=== PATIENT | male | born 1960 | race Caucasian/White ===

== ENCOUNTER 2018-01-10 08:32 | Inpatient (IN) | payer BC ==
--- NOTE | 2018-01-09 16:15 | Pre-op HX & Phy Repo 2 SIG ---
DATE OF ADMISSION: 01/10/2018 HISTORY OF PRESENT ILLNESS: The patient is a 57-year-old male in overall good health with a malfunctioning Donaldson continent ileostomy with recent episodes of incontinence and difficulty intubating. The patient has a past history of ulcerative colitis and in 1987 underwent proctocolectomy with Iesha ileostomy. The patient then underwent conversion of his malfunctioning conventional ileostomy to a Donaldson continent intestinal reservoir in [place] in 1992. He did very well ever since then, intubating 4 times a day without any problems until several months ago. He developed recurring episodes of incontinence of stool that would squirt out of the stoma as well as difficulty inserting his intubation catheter. He stands up and takes 4 to 5 minutes for the catheter to enter the pouch and the pouch also leaks flatus through the stoma. He is scheduled to undergo endoscopy of his pouch in preparation for surgical revision to correct what is most likely a slipped valve. He does not have any symptoms consistent with pouchitis. He also underwent a revision of his stoma in 1993, a year after the original surgery. PAST MEDICAL HISTORY: MEDICATIONS: Metformin, Lopid, and Protonix. ALLERGIES TO MEDICATIONS: None. OPERATIONS: In addition to the above, he has undergone surgery to correct deviated septum in the past. REVIEW OF SYSTEMS: He has been diagnosed as diabetic in the past 6 months. PHYSICAL EXAMINATION: The patient is 6 foot, 180 pounds. He is arriving from out of town, will be examined upon arrival and dictated separately. IMPRESSION: 1. Malfunctioning Donaldson continent intestinal reservoir with incontinence and difficulty with intubation. 2. History of ulcerative colitis. 3. Diabetes, on oral agents. 4. Status post multiple abdominal operations. 4.1. Proctocolectomy and Iesha ileostomy 1987. 4.2. Donaldson continent intestinal reservoir continent ileostomy 1992 4.3. Revision of Donaldson continent ileostomy stoma 1993. DISCUSSION: I have had a detailed discussion with the patient regarding the nature of his condition, the nature of the endoscopy, which does not require any anesthesia or sedation, and the nature of the surgical revision. I will have another detailed discussion after the findings of the endoscopy have been observed. I have had a discussion regarding the general risks of surgery including bleeding, infection, injury to adjacent structures or organs, adhesions that could lead to bowel obstruction, deep vein thrombosis despite prophylaxis, scarring, etc. I have also had a discussion about the risks of Donaldson continent ileostomy revision including recurrent difficulties with the pouch or with the valve including slipped valve or fistula or others issues. I have also discussed the potential need to relocate the stoma to the left side of the abdomen or another location on the right side. The patient understands and agrees to proceed. Vargas Lund M.D. DR: WALTER JOB#: [id number] CC: CARLOS
[~2018-01-10] VITALS: Ht 182.9 cm; Wt 79.0 kg
[2018-01-10 08:50] VITALS: BP 106/57
[2018-01-10] MEDS ORDERED: Zolpidem 5mg tab ORAL PRN ×2 (10:00→12:15)
[2018-01-10] MEDS ORDERED: Heparin 2000 units/Ns 1000ml INJ PRN (10:30)
[2018-01-10] MEDS ORDERED: Lidocaine 1% Plain 30 ml INJ PRN (10:30)
[2018-01-10 11:02] LABS: BASOPHILS % (AUTO) 0.7 % (0.0-2.0); EOSINOPHILS % (AUTO) 1.1 % (0.0-3.0); HEMATOCRIT 39.1 % (42.0-52.0); HEMOGLOBIN 13.4 G/DL (14.2-18.0); LYMPHOCYTES % (AUTO) 17.4 % (20.0-45.0); MEAN CORPUSCULAR VOLUME 91 FL (80-99); MONOCYTES % (AUTO) 8.8 % (1.0-10.0); NEUTROPHILS % (AUTO) 71.9 % (45.0-75.0); PLATELET COUNT 255 K/UL (150-450); RED CELL DISTRIBUTION WIDTH 11.4 % (11.6-14.8); WHITE BLOOD COUNT 6.1 K/UL (4.8-10.8)
[2018-01-10] MEDS ORDERED: METFORMIN HCL850 M1 ORAL (11:10)
[2018-01-10] MEDS ORDERED: PRILOSEC OTC20 MG ORAL (11:10)
[2018-01-10] MEDS ORDERED: LOPID600 MG ORAL (11:10)
[2018-01-10] MEDS ORDERED: CLARITIN-D 241 EACH PO (11:10)
[2018-01-10 11:13] LABS: ANION GAP 13 mmol/L (5-15); BLOOD UREA NITROGEN 15 mg/dL (7-18); CALCIUM 8.7 MG/DL (8.5-10.1); CARBON DIOXIDE 24 MMOL/L (21-32); CHLORIDE 98 MMOL/L (98-107); CREATININE 1.2 MG/DL (0.55-1.30); POTASSIUM 3.8 MMOL/L (3.5-5.1); SODIUM 135 MMOL/L (136-145)
[2018-01-10 11:22] LABS: ALANINE AMINOTRANSFERASE 33 U/L (12-78); ALBUMIN 3.2 G/DL (3.4-5.0); ALKALINE PHOSPHATASE 75 U/L (46-116); ASPARTATE AMINO TRANSFERASE 30 U/L (15-37); BILIRUBIN,TOTAL 0.4 MG/DL (0.2-1.0)
[2018-01-10 11:31] LABS: APPEARANCE,URINE CLEAR; BILIRUBIN, URINE NEGATIVE (NEGATIVE); COLOR,URINE PALE YELLOW; GLUCOSE, URINE (UA) NEGATIVE (NEGATIVE); KETONES,URINE 4+ (NEGATIVE); LEUKOCYTE ESTERASE ,URINE NEGATIVE (NEGATIVE); NITRITE,URINE NEGATIVE (NEGATIVE); PH,URINE 5 (4.5-8.0); PROTEIN,URINE NEGATIVE (NEGATIVE); UROBILINOGEN,URINE NORMAL MG/DL (0.0-1.0)
--- NOTE | 2018-01-10 11:47 | Pre-Procedure Note/Attestation ---
Pre-Procedure Note/Attestation Complete Prior to Procedure Planned Procedure: not applicable Procedure Narrative: Donaldson continent ileostomy pouch endoscopy Indications for Procedure Pre-Operative Diagnosis: Malfunctioning Donaldson Pouch Attestation I attest that I discussed the nature of the procedure; its benefits; risks and complications; and alternatives (and the risks and benefits of such alternatives ), prior to the procedure, with the patient (or the patient's legal leather goods sales representative). I attest that, if there was a reasonable possibility of needing a blood transfusion, the patient (or the patient's legal leather goods sales representative) was given the [facility] standardized written summary, pursuant to the Moises Slocomb Blood Safety Act ([place] Health and Safety Code # 1645, as amended). I attest that I re-evaluated the patient just prior to the surgery and that there has been no change in the patient's H&P, except as documented below:none Vargas Lund MD Jan 10, 2018 11:47
--- NOTE | 2018-01-10 12:24 | Brief Operative Note ---
Immediate Post Operative Note Operative Note Pre-op Diagnosis: Malfunctioning Donaldson Pouch Procedure: Donaldson pouch endoscopy Post-op Diagnosis: Slipped valve of Donaldson pouch Post-op Diagnosis: same as pre-op Findings: consistent w/pre-op dx studies Surgeon: denise Anesthesia: other - none Specimen: none Complications: none Condition: stable Fluids: none Estimated Blood Loss: none Drains: other - 28 montana to Donaldson pouch Implant(s) used?: No Vargas Lund MD Jan 10, 2018 12:24
[2018-01-10 13:13] VITALS: BP 116/62
[2018-01-10] MEDS: Neomycin Sulfate 500mg Tab ORAL SCH ×3 (13:21→20:45)
--- NOTE | 2018-01-10 13:23 | Pre-Procedure Note/Attestation ---
Pre-Procedure Note/Attestation Complete Prior to Procedure Planned Procedure: not applicable Procedure Narrative: PICC Line Indications for Procedure Pre-Operative Diagnosis: need IV access Attestation I attest that I discussed the nature of the procedure; its benefits; risks and complications; and alternatives (and the risks and benefits of such alternatives ), prior to the procedure, with the patient (or the patient's legal dermatology sales representative). I attest that I re-evaluated the patient just prior to the surgery and that there has been no change in the patient's H&P, except as documented below: Vincent Whaley M.D. Jan 10, 2018 13:23
--- NOTE | 2018-01-10 13:29 | Diagnostic Imaging Report ---
Indications: Needs long-term IV access Technique: Ultrasound confirms patent compressible also vein. Total sterile technique, including sterile probe cover and sterile gel, hat, mask,, sterile gown, large sterile drape, and preparation with 2% chlorhexidine utilized. Local anesthesia with 1% lidocaine. Under real-time ultrasound guidance, puncture the basilic vein using 21-gauge needle, documented and archived, passage 0.018 guidewire under direct fluoroscopy, which was used to determine appropriate catheter length, exchange for 5 Congolese peel-away sheath. 5 Congolese dual-lumen power PICC cut to 40 cm. It was inserted through the peel-away sheath. Peel-away sheath and guidewire removed. Catheter fixed to the skin. Both catheter ports aspirated and flushed. Patient tolerated procedure well, without immediate complication. Digital radiograph documents satisfactory catheter tip position, at the cavoatrial junction. Total fluoroscopy time 0.3 minutes. Total dose area product 15 dGycm2 Impression: Successful placement of 5 Congolese double-lumen PICC under sonographic and fluoroscopic guidance, as described above.
--- NOTE | 2018-01-10 15:23 | General Progress Note ---
Progress Note Progress Note H&P dictated. Endoscopy reveals normal pouch with slipped valve. Hgb 13.4 BUN 15 Cr 1.2 Total protein 6.5 (6.4-8.2) albumin low 3.2 Imp. Malfunctioning Donaldson Continent Intestinal [place] with slipped valve Malnutrition Plan: Surgery in AM May need TPN post-op Full discussion with patient and concerning surgery; all questions answered. Vargas Lund MD Jan 10, 2018 15:23
--- NOTE | 2018-01-10 15:46 | Anethesia Preoperative Eval ---
Anesthesia Pre-op PMH/ROS General Date of Evaluation: Jan 10, 2018 Time of Evaluation: 15:40 Anesthesiologist: Chanelle ASA Score: ASA 3 Mallampati Score Class I : Soft palate, uvula, fauces, pillars visible Class II: Soft palate, uvula, fauces visible Class III: Soft palate, base of uvula visible Class IV: Only hard plate visible Mallampati Classification: Class II Surgeon: Ashely Diagnosis: Malfunctioning Donaldson pouch Surgical Procedure: Ex laparotomy. Revision of continent pouch Anesthesia History: none Family History: no anesthesia problems Allergies: Uncoded Allergies: nkda (Allergy, Unknown, 01/10/18) Medications: see eMAR Past Medical History Cardiovascular: Denies: HTN, CAD, CT, valve dz, arrhythmia, other Pulmonary: Denies: asthma, COPD, TOMEKA, other Gastrointestinal/Genitourinary: Reports: GERD - mild, other - UC s/p total colectomy; Denies: CRI, ESRD Neurologic/Psychiatric: Reports: depression/anxiety; Denies: dementia, CVA, TIA, other Endocrine: Reports: DM - reasonably controlled on pills; Denies: hypothyroidism, steroids, other HEENT: Denies: cataract (L), cataract (R), glaucoma, [place] (L), [place] (R), other Hematology/Immune: Denies: anemia, DVT, bleeding disorder, other Musculoskeletal/Integumentary: Denies: OA, RA, DJD, DDD, edema, other PMH Narrative: as above PSxH Narrative: Multiple intraabdominal surgeries for creation and managing of continent pouch, septoplasty Anesthesia Pre-op Phys. Exam Physician Exam Last Vital Signs Date Time Temp Pulse Resp B/P (MAP) Pulse Ox O2 Delivery O2 Flow Rate FiO2 01/10/18 13:13 97.5 56 20 116/62 (80) 98 97.5 01/10/18 11:04 Room Air Constitutional: NAD Neurologic: CN 2-12 intact Cardiovascular: RRR, no M/R/G Respiratory: CTA Gastrointestinal: S/NT/ND Airway Exam Mallampati Score: Class II MO: full Neck: flexible ROM: full Teeth: intact Dentures: no upper, no lower Anesthesia Pre-op A/P Labs Hematology Test 01/10/18 10:25 White Blood Count 6.1 K/UL (4.8-10.8) Red Blood Count 4.30 M/UL (4.70-6.10) L Hemoglobin 13.4 G/DL (14.2-18.0) L Hematocrit 39.1 % (42.0-52.0) L Mean Corpuscular Volume 91 FL (80-99) Mean Corpuscular Hemoglobin 31.2 PG (27.0-31.0) H Mean Corpuscular Hemoglobin Concent 34.3 G/DL (32.0-36.0) Red Cell Distribution Width 11.4 % (11.6-14.8) L Platelet Count 255 K/UL (150-450) Mean Platelet Volume 8.6 FL (6.5-10.1) Neutrophils (%) (Auto) 71.9 % (45.0-75.0) Lymphocytes (%) (Auto) 17.4 % (20.0-45.0) L Monocytes (%) (Auto) 8.8 % (1.0-10.0) Eosinophils (%) (Auto) 1.1 % (0.0-3.0) Basophils (%) (Auto) 0.7 % (0.0-2.0) Coagulation Test 01/10/18 10:25 Prothrombin Time 10.7 SEC (9.30-11.50) Prothromb Time International Ratio 1.0 (0.9-1.1) Activated Partial Thromboplast Time 30 SEC (23-33) Chemistry Test 01/10/18 10:25 Sodium Level 135 MMOL/L (136-145) L Potassium Level 3.8 MMOL/L (3.5-5.1) Chloride Level 98 MMOL/L (98-107) Carbon Dioxide Level 24 MMOL/L (21-32) Anion Gap 13 mmol/L (5-15) Blood Urea Nitrogen 15 mg/dL (7-18) Creatinine 1.2 MG/DL (0.55-1.30) Estimat Glomerular Filtration Rate > 60 mL/min (>60) Glucose Level 200 MG/DL (74-106) H Calcium Level 8.7 MG/DL (8.5-10.1) Total Bilirubin 0.4 MG/DL (0.2-1.0) Aspartate Amino Transf (AST/SGOT) 30 U/L (15-37) Alanine Aminotransferase (ALT/SGPT) 33 U/L (12-78) Alkaline Phosphatase 75 U/L (46-116) Total Protein 6.5 G/DL (6.4-8.2) Albumin 3.2 G/DL (3.4-5.0) L Globulin 3.3 g/dL Albumin/Globulin Ratio 1.0 (1.0-2.7) Studies Pre-op Studies: EKG - NSR Risk Assessment & Plan Assessment: ASA3 Plan: GA with ETT, PONV prevention Status Change Before Surgery: No Pre-Antibiotics Drug: As scheduled Larry Roca MD Jan 10, 2018 15:46
[2018-01-10 16:00] VITALS: BP 122/65
--- NOTE | 2018-01-10 16:30 | Pre-op HX & Phy Repo 2 SIG ---
DATE OF ADMISSION: 01/10/2018 The patient has now arrived from out of town. Please see previously dictated history. PHYSICAL EXAMINATION: GENERAL: He is 6 feet 1 inch 180 pounds, well developed, well nourished, in no distress with vital signs all within normal limits. HEENT: Within normal limits. LUNGS: Clear. HEART: Regular rhythm. BREASTS: Without masses. ABDOMEN: Soft. There is a long midline scar from xiphoid to pubis, and these is a horizontal scar in the upper part of the right lower quadrant from prior conventional ileostomy. The stoma of his Donaldson continent ileostomy is very low in the right lower quadrant, almost in the inguinal area. There is a small circumferential parastomal hernia, but no other incisional hernia. Testes and scrotum within normal limits. RECTAL: Status post proctectomy. EXTREMITIES: Without edema. Some mild varicosities in the left lower extremity. Pulses 3+ femoral to pedal bilaterally neurologic NEUROLOGIC: physiologic. IMPRESSION: 1. Malfunctioning Donaldson continent ileostomy with incontinence and difficulty with intubation. 2. History of ulcerative colitis. 3. Diabetes, on oral agents. 4. Status post multiple abdominal operations. 4.1. Proctocolectomy and Iesha ileostomy in 1987. 4.2. Donaldson continent intestinal reservoir in 1992. 4.3. Revision of Donaldson continent ileostomy stoma in 1993. DISCUSSION: The patient has undergone pouch endoscopy revealing a partially slipped valve. The pouch is otherwise normal. I have had a full discussion with the patient and his regarding the planned surgery involving laparotomy, takedown of the existing stoma, creation of a new valve if the current valve could not be reformed, and possible relocation of the stoma to another location in the right lower quadrant or to the left lower quadrant. I have discussed the nature of the surgery, indications, alternatives, options, and risks and all questions have been answered. He understands and agrees to proceed. He will undergo insertion of a dual lumen PICC line, intravenous hydration together with his bowel prep, continuous drainage of his Donaldson pouch with indwelling catheter, and intravenous antibiotics started tonight and continuing post-operatively as well as subcutaneous heparin preoperatively. Vargas Lund M.D. DR: WALTER JOB#: [id number] CC: CARLOS
--- NOTE | 2018-01-10 17:30 | Procedure Note ---
DATE OF PROCEDURE: 01/10/2018 ENDOSCOPIST: Vargas Lund M.D. ANESTHESIA: None. SEDATION: None. PRE-ENDOSCOPIC DIAGNOSES: 1. Malfunctioning Donaldson continent intestinal reservoir with incontinence and difficulty with intubation. 2. History of ulcerative colitis. 3. Status post multiple abdominal operations. 3.1. Proctocolectomy and Iesha ileostomy in 1987. 3.2. Donaldson continent intestinal reservoir in 1992. 3.3. Revision of Donaldson continent intestinal reservoir stoma in 1993. POST-ENDOSCOPY DIAGNOSES: 1. Malfunctioning Donaldson continent intestinal reservoir with incontinence and difficulty with intubation. 2. History of ulcerative colitis. 3. Status post multiple abdominal operations. 3.1. Proctocolectomy and Iesha ileostomy in 1987. 3.2. Donaldson continent intestinal reservoir in 1992. 3.3. Revision of Doanldson continent intestinal reservoir stoma in 1993. ENDOSCOPY PERFORMED: Donaldson continent intestinal reservoir pouch endoscopy. FINDINGS: A partially slipped valve with multiple angulations between the stoma orifice and the pouch itself. The pouch mucosa is normal and the pouch is well-formed. DESCRIPTION OF PROCEDURE: The patient was positioned supine in the GI lab without any anesthesia or sedation given or required. Using a GIF-P140 endoscope, the stoma was entered and with some difficulty negotiating the angulations, the pouch was entered. The distance to the tip of the valve was 13 cm, which in this patient should be approximately 8 cm. The pouch itself is normal and distensible. Retroflexed views revealed distortion and angulation of the valve consistent with a partially slipped valve. Withdrawal views confirmed the above findings. Following the endoscopy, I was able to insert a 28-Kazakh Killian catheter into the pouch with slight manipulation, confirmed with irrigation. It was secured with tape to the skin and connected to a gravity drainage bag for continuous decompression while preparation continues for surgical revision of his Donaldson pouch in the morning. The patient tolerated the endoscopy well. Vargas Lund M.D. DR: WALTER JOB#: [id number] CC: CARLOS
[2018-01-10] MEDS ORDERED: D5 1/2NS w/KCl 20mEq 1,000 ML IV SCH ×2 (18:00)
[2018-01-10] MEDS: D5 1/2NS w/KCl 20mEq 1,000 ML IV SCH (20:15)
[2018-01-10 20:35] VITALS: BP 109/61
[2018-01-10] MEDS: Dyna-Hex 2% Top Sol 2oz TOPIC SCH (20:45)
[2018-01-11] VITALS (11 sets, daily range): BP systolic 104–134; BP diastolic 58–75
[2018-01-11] MEDS: Ampicillin/Sulbactam Sod 3 GM in NS 110 ML IV SCH ×5 (00:09→23:11)
[2018-01-11 06:16] LABS: FERRITIN 324 NG/ML (8-388)
[2018-01-11 06:30] LABS: % IRON SATURATION 15 % (15-50); IRON 47 ug/dL (50-175); TOTAL IRON BINDING CAPACITY 321 ug/dL (250-450)
--- NOTE | 2018-01-11 07:45 | Pre-Procedure Note/Attestation ---
Pre-Procedure Note/Attestation Complete Prior to Procedure Procedure Narrative: Revision of Donaldson continent ileostomy; gastrostomy Indications for Procedure Pre-Operative Diagnosis: Malfunctioning Donaldson Pouch Attestation I attest that I discussed the nature of the procedure; its benefits; risks and complications; and alternatives (and the risks and benefits of such alternatives ), prior to the procedure, with the patient (or the patient's legal customer service representative). I attest that, if there was a reasonable possibility of needing a blood transfusion, the patient (or the patient's legal customer service representative) was given the [facility] standardized written summary, pursuant to the Moises Abdulkadir Blood Safety Act ([place] Health and Safety Code # 1645, as amended). I attest that I re-evaluated the patient just prior to the surgery and that there has been no change in the patient's H&P, except as documented below:none Vargas Lund MD Jan 11, 2018 07:45
[2018-01-11] MEDS: D5 1/2NS w/KCl 20mEq 1,000 ML IV SCH (08:01)
[2018-01-11] MEDS ORDERED: Heparin 5000 units/ml inj SUBQ SCH (09:00)
[2018-01-11] MEDS ORDERED: Lidocaine 1% MPF 10mg/ml 5ml ONE (11:17)
[2018-01-11] MEDS ORDERED: fentaNYL 100 mcg/2 mL IV ONE (11:17)
[2018-01-11] MEDS ORDERED: Midazolam 2mg/2ml Inj ONE (11:17)
[2018-01-11] MEDS ORDERED: Propofol 200mg/20ml IV ONE (11:17)
[2018-01-11] MEDS ORDERED: Zemuron 50mg/5ml Inj IV ONE ×2 (11:29→12:58)
[2018-01-11] MEDS ORDERED: Succinylcholine 20mg/ml 10ml vial ONE (11:29)
[2018-01-11] MEDS ORDERED: NS Irrig 1000ml ONE (11:30)
[2018-01-11] MEDS ORDERED: Sterile Water Irrig 1000ml IRRIG ONE (11:30)
[2018-01-11] MEDS ORDERED: LR 1000ml ONE (11:30)
[2018-01-11] MEDS ORDERED: Bacitracin 50000 Units Vial ONE (11:33)
[2018-01-11] MEDS ORDERED: NeoSporin Gu Irrig 1ml Amp IRRIG ONE (11:33)
[2018-01-11] MEDS ORDERED: Morphine Sulfate 10mg/ml Inj ONE (13:01)
[2018-01-11] MEDS ORDERED: Sodium Chloride 10ml vial INJ ONE (13:02)
[2018-01-11] MEDS ORDERED: Labetalol 5mg/ml 20ml vial IV PRN (14:15)
[2018-01-11] MEDS ORDERED: DiphenhydrAMINE 50mg/ml Inj IVP PRN (14:15)
[2018-01-11] MEDS ORDERED: fentaNYL 100 mcg/2 mL IV PRN (14:15)
[2018-01-11] MEDS ORDERED: Midazolam 2mg/2ml Inj IVP PRN (14:15)
[2018-01-11] MEDS ORDERED: Hydromorphone 0.5mg/0.5ml inj IVP PRN (14:15)
[2018-01-11] MEDS ORDERED: Neostigmine 1mg/ml 10ml Inj ONE (15:05)
[2018-01-11] MEDS ORDERED: Glycopyrrolate 0.2mg/ml 1ml Vial ONE ×2 (15:05→15:17)
--- NOTE | 2018-01-11 15:33 | Brief Operative Note ---
Immediate Post Operative Note Operative Note Pre-op Diagnosis: Malfunctioning Donaldson Pouch Procedure: revision of Donaldson pouch, gastrostomy Post-op Diagnosis: Slipped valve of Donaldson pouch Post-op Diagnosis: same as pre-op Findings: consistent w/pre-op dx studies Surgeon: denise Regional Maintenance Manager: kedar Anesthesiologist: Anesthesia: general Specimen: none Complications: none Condition: stable Fluids: see anesthesia record Estimated Blood Loss: volume - 100cc Drains: other - 28 Killian to Donaldson pouch, 18Foley gastrostomy Implant(s) used?: No Vargas Lund MD Jan 11, 2018 15:33
[2018-01-11] MEDS ORDERED: Rate Change PCA 1 Each MISC PRN (15:45)
[2018-01-11] MEDS ORDERED: PCA Education Pamphlet MISC ONE (15:45)
[2018-01-11] MEDS ORDERED: Acetaminophen 650mg/20.3ml GT PRN (15:45)
[2018-01-11] MEDS ORDERED: LORazepam 1mg tab SL PRN ×2 (15:45)
[2018-01-11] MEDS ORDERED: Morphine Sulfate 2mg/ml Inj(IV/IM USE ONLY) IVP PRN (15:45)
[2018-01-11] MEDS ORDERED: Morphine Sulfate 4mg/ml Inj (IV USE ONLY) IV PRN (15:45)
[2018-01-11] MEDS ORDERED: Naloxone 0.4mg/ml Inj IVP PRN (15:45)
[2018-01-11] MEDS: PCA Morphine 1mg/ml 30 ML IV PRN ×3 (15:58→23:26)
[2018-01-11] MEDS ORDERED: D5 1/4NS w/KCl 20mEq 1,000 ML IV SCH (16:30)
[2018-01-11] MEDS: PCA shift volume MISC SCH (19:00)
[2018-01-11] MEDS: Dyna-Hex 2% Top Sol 2oz TOPIC SCH (20:00)
[2018-01-11] MEDS ORDERED: Insulin Human Regular 100units/ml 3ml SUBQ PRN (21:00)
--- NOTE | 2018-01-11 22:15 | Operative Note - Dictated ---
DATE OF OPERATION: 01/11/2018 SURGEON: Vargas Lund M.D. SUPERCALENDER OPERATOR SURGEON: Otto Juan M.D. ANESTHESIOLOGIST: Dr. Kaur. TYPE OF ANESTHESIA: General endotracheal. PREOPERATIVE DIAGNOSES: 1. Malfunctioning Donaldson continent intestinal reservoir with incontinence and difficulty with intubation. 2. History of ulcerative colitis. 3. Status post multiple abdominal operations. 3.1. Proctocolectomy and Iesha ileostomy in 1987. 3.2. Donaldson continent intestinal reservoir, continent ileostomy in 1992 3.3. Revision and relocation of Donaldson continent ileostomy stoma in 1993 POSTOPERATIVE DIAGNOSES: 1. Malfunctioning Donaldson continent intestinal reservoir with incontinence and difficulty with intubation. 2. History of ulcerative colitis. 3. Status post multiple abdominal operations. 3.1. Proctocolectomy and Iesha ileostomy in 1987. 3.2. Donaldson continent intestinal reservoir, continent ileostomy in 1992 3.3. Revision and relocation of Donaldson continent ileostomy stoma in 1993 OPERATION PERFORMED: Laparotomy with revision of Donaldson continent intestinal reservoir slipped valve with takedown and re-maturation of stoma and catheter gastrostomy. DESCRIPTION OF PROCEDURE: The patient was taken to the operating room and under general endotracheal anesthesia with sequential compression device stockings and Killian catheter in place and having received intravenous antibiotics and preoperative subcutaneous heparin, the patient was prepped and draped in the usual fashion. Previous midline incision was reopened from just above the umbilicus to the pubis and ultimately extended into the mid epigastrium for better visualization. There were diffuse adhesions of the bowel throughout the abdomen and the pouch was adherent into the pelvis. Adhesions were taken down and the pouch mobilized protecting the ureters and bladder. The stoma in the right lower quadrant was circumscribed with a transversely oriented elliptical incision and it was brought through into the abdominal cavity preserving its mesentery. One small entry into the access segment was closed with chromic and silk sutures. A 28-Kenyan Killian catheter was readily passed into the pouch. The access segment was quite redundant indicating the nipple valve had undergone dessusception. There was only a short 2-cm long valve that projected into the pouch. General exploration of the abdomen revealed that the liver was normal, the gallbladder was distended, but no stones were palpable. The stomach and small bowel were entirely normal. The right vas deferens was adherent to the pouch and dissected free. The pouch was distended with 800 mL of saline with manual occlusion of the afferent bowel with the 28Fr Killian into the pouch. Upon removing the catheter, there was a little bit of incontinence. The catheter was reintroduced and the pouch decompressed. Through an appropriately located pouch enterotomy between 3-0 silk stay sutures along the previous suture line, the pouch was entered. The nipple valve described above was visualized. I was able to put traction on the access segment and the slipped portion of the valve and the entire valve was able to be unraveled removing gifty. Then I prepared the segment to re-intussuscept and create a 5.0-cm long nipple valve. The PI-55 stapling device with 4.8 mm gifty was utilized with gifty placed 90 degrees away from the mesentery. The valve and pouch wall were too thick for another application of the stapler to the anterior pouch wall. The collar had and was now reformed with 3-0 silk sutures to stabilize the valve. The pouch lay nicely across the pelvis. There was an omental remnant in the pelvis which was well perfused and left in place as to control hemostasis from the dissection. the field was irrigated and hemostasis was secured. Antibiotic-soaked laps had been used for the abdominal wall and a Brandenburg retractor utilized. The pouch lay nicely across the pelvis and the access segment came back through the same stoma. I narrowed the lateral stoma skin incision with 4-0 Monocryl subcuticular suture. Then slight redundancy was excised and the stoma primarily matured with continuous 2-0 chromic locking sutures starting at the 3 and 9 o'clock positions. The 28-Kenyan Killian was appropriately positioned in the apex of the pouch and sutured to the skin with two sutures of 2-0 silk. It was flushed and connected to a gravity drainage bag. In view of the dissection of the small bowel, I felt decompression with a temporary catheter gastrostomy was indicated. The patient had prior gastrostomy and the stomach was left attached there. A stab incision was made in the left upper quadrant and an 18-Kenyan Killian catheter brought through. A gastrotomy was made and the catheter introduced into the stomach and the balloon inflated. This was done after placing a 2-0 chromic pursestring suture. The stomach was sutured to the anterior abdominal wall with multiple interrupted 3-0 silk sutures. The catheter was sutured to the skin with a 2-0 silk suture. It was flushed and connected to a gravity drainage bag. The abdomen was inspected again and hemostasis was secure. The incision was closed in one layer with continuous #0 looped PDS. Additional antibiotic irrigation was utilized and the skin closed with gifty. Dry sterile dressings were applied. Final sponge and needle counts were correct. The patient tolerated the procedure well and left the operating room in good condition. Vargas Lund M.D. DR: Marilee JOB#: [id number] CC: CARLOS
[2018-01-11] MEDS: 1/2NS w/KCl 20mEq 1000ml 1,000 ML IV SCH (22:48)
[2018-01-12] VITALS: BP 116/66
[2018-01-12 04:00] VITALS: BP 114/67
[2018-01-12 04:54] LABS: HEMATOCRIT 39.1 % (42.0-52.0); HEMOGLOBIN 13.5 G/DL (14.2-18.0); MEAN CORPUSCULAR VOLUME 90 FL (80-99); PLATELET COUNT 215 K/UL (150-450); RED BLOOD COUNT 4.35 M/UL (4.70-6.10); RED CELL DISTRIBUTION WIDTH 11.1 % (11.6-14.8); WHITE BLOOD COUNT 12.7 K/UL (4.8-10.8)
[2018-01-12] MEDS: PCA Morphine 1mg/ml 30 ML IV PRN ×3 (05:07→15:21)
[2018-01-12] MEDS: Ampicillin/Sulbactam Sod 3 GM in NS 110 ML IV SCH ×4 (05:09→23:48)
[2018-01-12 05:25] LABS: ANION GAP 7 mmol/L (5-15); BLOOD UREA NITROGEN 8 mg/dL (7-18); CALCIUM 7.7 MG/DL (8.5-10.1); CARBON DIOXIDE 30 MMOL/L (21-32); CHLORIDE 106 MMOL/L (98-107); CREATININE 0.9 MG/DL (0.55-1.30); POTASSIUM 3.8 MMOL/L (3.5-5.1); SODIUM 143 MMOL/L (136-145)
[2018-01-12] MEDS: 1/2NS w/KCl 20mEq 1000ml 1,000 ML IV SCH ×2 (06:54→17:10)
--- NOTE | 2018-01-12 07:04 | General Progress Note ---
Progress Note Progress Note AVSS comfortable with Morphine TRAILER TRUCK DRIVER Good IS effort chest clear Cor reg rhythm Abdomen mild soft distention, incision clean, stoma pink Outputs overnight 12 hours: urine 800 Gastrostomy 70 bilious BCIR fileo 20 serosang WBC 12,700 Hgb 13.5 (stable) BUN 8 Cr 0.9 Imp. Ileus Plan; NPO ambulate with assistance f/u labs Vargas Lund MD Jan 12, 2018 07:04
[2018-01-12] MEDS: PCA shift volume MISC SCH ×2 (07:26→19:06)
[2018-01-12 08:00] VITALS: BP 116/66
[2018-01-12] MEDS: DiphenhydrAMINE 50mg/ml Inj IVP PRN ×2 (09:48→19:13)
[2018-01-12 12:00] VITALS: BP 134/69
--- NOTE | 2018-01-12 13:28 | 48 Hour Post Anesthesia Eval ---
Post Anesthesia Evaluation Procedure: Ex. Laparotomy, revision of continent pouch Date of Evaluation: Jan 12, 2018 Time of Evaluation: 13:26 Blood Pressure Systolic: 124 0: 72 Pulse Rate: 72 Respiratory Rate: 20 Temperature (Fahrenheit): 97.4 O2 Sat by Pulse Oximetry: 98 Airway: patent Nausea: No Vomiting: No Pain Intensity: 3 Hydration Status: adequate Cardiopulmonary Status: stable Mental Status/LOC: patient returned to baseline Follow-up Care/Observations: n/a Post-Anesthesia Complications: none Follow-up care needed: N/A Larry Roca MD Jan 12, 2018 13:28
[2018-01-12 16:00] VITALS: BP 116/65
[2018-01-12 20:00] VITALS: BP 117/68
[2018-01-12] MEDS: Dyna-Hex 2% Top Sol 2oz TOPIC SCH (20:04)
[2018-01-12] MEDS: Iron Sucrose 100 MG in NS 55 ML IV SCH (20:04)
[2018-01-13] VITALS: BP 119/71
[2018-01-13 04:00] VITALS: BP 120/67
[2018-01-13] MEDS: 1/2NS w/KCl 20mEq 1000ml 1,000 ML IV SCH ×3 (04:15→22:11)
[2018-01-13 04:57] LABS: HEMATOCRIT 34.3 % (42.0-52.0); HEMOGLOBIN 11.6 G/DL (14.2-18.0); MEAN CORPUSCULAR VOLUME 90 FL (80-99); PLATELET COUNT 182 K/UL (150-450); RED BLOOD COUNT 3.81 M/UL (4.70-6.10); RED CELL DISTRIBUTION WIDTH 10.8 % (11.6-14.8)
[2018-01-13] MEDS: Ampicillin/Sulbactam Sod 3 GM in NS 110 ML IV SCH ×4 (05:02→23:23)
[2018-01-13 05:14] LABS: ANION GAP 4 mmol/L (5-15); BLOOD UREA NITROGEN 8 mg/dL (7-18); CALCIUM 8.2 MG/DL (8.5-10.1); CARBON DIOXIDE 31 MMOL/L (21-32); CHLORIDE 105 MMOL/L (98-107); CREATININE 0.9 MG/DL (0.55-1.30); POTASSIUM 3.5 MMOL/L (3.5-5.1); SODIUM 140 MMOL/L (136-145)
[2018-01-13] MEDS: PCA shift volume MISC SCH ×2 (07:19→19:14)
[2018-01-13 08:00] VITALS: BP 134/77
[2018-01-13] MEDS ORDERED: Naloxone 0.4mg/ml Inj IVP PRN (08:24)
[2018-01-13] MEDS ORDERED: Rate Change PCA 1 Each MISC PRN (08:30)
--- NOTE | 2018-01-13 08:36 | General Progress Note ---
Progress Note Progress Note AVSS Ambulating freely in hallways. 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
[2018-01-13] MEDS ORDERED: DiphenhydrAMINE 50mg/ml Inj IVP PRN (09:45)
[2018-01-13] MEDS ORDERED: Morphine Sulfate 4mg/ml Inj (IV USE ONLY) IV PRN (09:45)
[2018-01-13] MEDS ORDERED: Morphine Sulfate 2mg/ml Inj(IV/IM USE ONLY) IVP PRN (09:45)
[2018-01-13 12:00] VITALS: BP 137/73
[2018-01-13] MEDS: PCA Morphine 1mg/ml 30 ML IV PRN ×2 (13:56→22:09)
[2018-01-13] MEDS ORDERED: NS 275ml ONE (14:07)
[2018-01-13] MEDS ORDERED: Tubing IV Secondary IV ONE (14:07)
[2018-01-13] MEDS ORDERED: NS Irrig 1000ml ONE (14:07)
[2018-01-13] MEDS ORDERED: PCA Morphine 1mg/ml 30 ML IV PRN (15:45)
[2018-01-13 16:00] VITALS: BP 130/72
[2018-01-13 20:00] VITALS: BP 125/67
[2018-01-13] MEDS: Iron Sucrose 100 MG in NS 55 ML IV SCH (20:32)
[2018-01-13] MEDS: Dyna-Hex 2% Top Sol 2oz TOPIC SCH (20:44)
[2018-01-14] VITALS (13 sets, daily range): BP systolic 88–119; BP diastolic 9–77
[2018-01-14] MEDS: Ampicillin/Sulbactam Sod 3 GM in NS 110 ML IV SCH ×4 (05:38→23:59)
[2018-01-14 06:08] LABS: BASOPHILS % (AUTO) 0.5 % (0.0-2.0); EOSINOPHILS % (AUTO) 3.3 % (0.0-3.0); HEMATOCRIT 32.7 % (42.0-52.0); HEMOGLOBIN 11.4 G/DL (14.2-18.0); LYMPHOCYTES % (AUTO) 10.6 % (20.0-45.0); MEAN CORPUSCULAR VOLUME 90 FL (80-99); MONOCYTES % (AUTO) 6.6 % (1.0-10.0); PLATELET COUNT 203 K/UL (150-450); RED BLOOD COUNT 3.64 M/UL (4.70-6.10); RED CELL DISTRIBUTION WIDTH 10.7 % (11.6-14.8)
[2018-01-14 07:12] LABS: ANION GAP 7 mmol/L (5-15); BLOOD UREA NITROGEN 11 mg/dL (7-18); CALCIUM 8.3 MG/DL (8.5-10.1); CARBON DIOXIDE 29 MMOL/L (21-32); CHLORIDE 103 MMOL/L (98-107); CREATININE 0.8 MG/DL (0.55-1.30); POTASSIUM 3.2 MMOL/L (3.5-5.1); SODIUM 139 MMOL/L (136-145)
[2018-01-14] MEDS: PCA shift volume MISC SCH ×2 (07:17→19:22)
--- NOTE | 2018-01-14 08:21 | General Progress Note ---
Progress Note Progress Note New onset atrial fibrillation with pulse 160 BP 100. Patient comfortable Abdomen distended, soft, incision clean Urine 1700 Gastrostomy 470 BCIR ileo scant serous WBC 8000 Hgb 11.4 stable K 3.2 Imp. Atrial fibrillation Ileus Plan; Dr. Vikram Monte to see O2, EKG, bedrest, transfer to telemetry NPO except po meds Increase KCL in IV fluids Vargas Lund MD Jan 14, 2018 08:21
[2018-01-14] MEDS ORDERED: Metoprolol 5mg/5ml Inj IVP SCH ×2 (09:00→09:20)
[2018-01-14] MEDS ORDERED: Rate Change PCA 1 Each MISC PRN (09:00)
[2018-01-14] MEDS ORDERED: Naloxone 0.4mg/ml Inj IVP PRN (09:01)
[2018-01-14] MEDS ORDERED: POTASSIUM CHLORIDE IV SCH ×2 (09:30)
[2018-01-14] MEDS ORDERED: [UNRECOGNIZED DRUG - OTHER] IV SCH ×2 (09:30)
[2018-01-14] MEDS ORDERED: DiphenhydrAMINE 50mg/ml Inj IVP PRN (09:45)
[2018-01-14] MEDS ORDERED: Morphine Sulfate 4mg/ml Inj (IV USE ONLY) IV PRN (09:45)
[2018-01-14] MEDS ORDERED: Morphine Sulfate 2mg/ml Inj(IV/IM USE ONLY) IVP PRN (09:45)
--- NOTE | 2018-01-14 10:04 | Cardiology Progress Note ---
Assessment/Plan Assessment/Plan afib rvr (hs of 1 prioro event) dm recent 70 lg intentional weigh loss hx of UC s/ pancolectomy mal fxn ostomy pouch now s/p revision sdu transfer iv bb iv dilt if bbin effective iv amio id above e fails hemodynamically stable at this time cardiac enzyme , ekg and echo , venous duplex , tsh k supplement [id number] Objective Last 24 Hour Vital Signs Date Time Temp Pulse Resp B/P (MAP) Pulse Ox O2 Delivery O2 Flow Rate FiO2 01/14/18 09:47 166 118/69 01/14/18 08:15 144 100/75 (83) 01/14/18 08:00 97.4 166 18 100/72 (81) 95 97.4 01/14/18 04:15 98.1 79 18 115/61 (79) 98 98.1 01/14/18 04:00 18 01/14/18 00:00 98.8 68 18 110/65 (80) 95 98.8 01/14/18 00:00 18 01/13/18 22:09 18 01/13/18 22:07 18 01/13/18 21:00 Room Air 01/13/18 20:00 19 01/13/18 20:00 98.7 75 19 125/67 (86) 95 98.7 01/13/18 16:00 20 01/13/18 16:00 98.5 69 20 130/72 (91) 98 98.5 01/13/18 13:56 18 01/13/18 12:00 18 01/13/18 12:00 98.9 74 20 137/73 (94) 98 98.9 Intake and Output 01/13/18 01/14/18 19:00 07:00 Intake Total 700 ml 1280 ml Output Total 1365 ml 840 ml Balance -665 ml 440 ml Intake Oral 0 ml IV Total 700 ml 1280 ml Output Urine Total 1150 ml 550 ml Other 215 ml 290 ml Laboratory Tests Test 01/14/18 04:00 White Blood Count 8.0 K/UL (4.8-10.8) Red Blood Count 3.64 M/UL (4.70-6.10) L Hemoglobin 11.4 G/DL (14.2-18.0) L Hematocrit 32.7 % (42.0-52.0) L Mean Corpuscular Volume 90 FL (80-99) Mean Corpuscular Hemoglobin 31.3 PG (27.0-31.0) H Mean Corpuscular Hemoglobin Concent 34.8 G/DL (32.0-36.0) Red Cell Distribution Width 10.7 % (11.6-14.8) L Platelet Count 203 K/UL (150-450) Mean Platelet Volume 8.1 FL (6.5-10.1) Neutrophils (%) (Auto) 79.0 % (45.0-75.0) H Lymphocytes (%) (Auto) 10.6 % (20.0-45.0) L Monocytes (%) (Auto) 6.6 % (1.0-10.0) Eosinophils (%) (Auto) 3.3 % (0.0-3.0) H Basophils (%) (Auto) 0.5 % (0.0-2.0) Sodium Level 139 MMOL/L (136-145) Potassium Level 3.2 MMOL/L (3.5-5.1) L Chloride Level 103 MMOL/L (98-107) Carbon Dioxide Level 29 MMOL/L (21-32) Anion Gap 7 mmol/L (5-15) Blood Urea Nitrogen 11 mg/dL (7-18) Creatinine 0.8 MG/DL (0.55-1.30) Estimat Glomerular Filtration Rate > 60 mL/min (>60) Glucose Level 106 MG/DL (74-106) Calcium Level 8.3 MG/DL (8.5-10.1) L Vikram Monte MD Jan 14, 2018 10:04
[2018-01-14] MEDS ORDERED: Metoprolol Tartrate 5 MG in D5W 55 ML IVPB PRN (10:15)
[2018-01-14] MEDS ORDERED: dilTIAZem HCl 25mg/5ml Inj IVP SCH (10:15)
[2018-01-14] MEDS: Potassium Chloride 40 MEQ in 1/2 NS 1000ml 1,000 ML IV SCH ×2 (10:51→20:47)
[2018-01-14] MEDS ORDERED: LORazepam 1mg tab SL PRN ×2 (11:45→15:45)
[2018-01-14] MEDS ORDERED: Acetaminophen 650mg/20.3ml GT PRN (11:45)
[2018-01-14] MEDS: PCA Morphine 1mg/ml 30 ML IV PRN (12:03)
[2018-01-14] MEDS ORDERED: Insulin Human Regular 100units/ml 3ml SUBQ PRN (15:00)
[2018-01-14] MEDS: Dyna-Hex 2% Top Sol 2oz TOPIC SCH (19:37)
[2018-01-14] MEDS: Iron Sucrose 100 MG in NS 55 ML IV SCH (20:48)
--- NOTE | 2018-01-14 22:16 | Consultation ---
DATE OF CONSULTATION: 01/14/2018 NOTE: POOR AUDIO CARDIAC CONSULTATION CONSULTING PHYSICIAN: Vikram Monte M.D. REFERRING PHYSICIAN: Vargas Lund M.D. REASON FOR REFERRAL: Atrial fibrillation and rapid ventricular response. HISTORY OF PRESENT ILLNESS: This is a 57-year-old gentleman with history of ulcerative colitis who has undergone colectomy a number of years ago. He has had problems with his pouch, and Dr. Lund recently treated his malfunctioning Donaldson pouch. Today, he was feeling somewhat weird. He says when he was walking, he does not really know how to describe it. The nurses took his vital signs, heart rate up to [address] Lund ordered an EKG, called me, and I asked that the patient be transferred to telemetry for administration of intravenous beta-blockers. He just arrived to the stepdown unit at this time, and beta-blockers were just administered in the middle of my evaluation of the patient. He really does not have any pain, pressure, tightness, or heaviness in his chest. There is no PND. He does have dyspnea on exertion, but there is something that has been going on for some time now. There is no orthopnea. He really does not have any palpitations, no dizziness or lightheadedness. PAST MEDICAL HISTORY: Positive for history of ulcerative colitis as mentioned, recently diagnosed with diabetes mellitus, and lost intentionally about 70 pounds because of decrease medication from metformin 850 three times a day down to twice a day. He does not have high blood pressure, does not have high cholesterol. No history of heart attack. No cancer. No stroke. No hepatitis or tuberculosis. No asthma or emphysema. No ulcers. No kidney problems, liver problems, thyroid problems, anemia, or arthritis. No HIV, AIDS, or blood clots. He does have a history of atrial fibrillation. His atrial fibrillation occurred after he received some albuterol a number of years ago and apparently after two weeks of being in atrial fibrillation he was converted back to electrocardioversion at that time. No other major medical problems. ALLERGIES: He is not really allergic to anything but prednisone gave him some acne, Wellbutrin he thought contributed to his development of atrial fibrillation, and Ativan gave him some cramping in his fingers, he thinks. SOCIAL HISTORY: He does not smoke. Does not drink alcoholic beverages. No drug use. 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 REVIEW OF SYSTEMS: GASTROINTESTINAL: Did have some nausea earlier today. No vomiting. No diarrhea. No bowel movements. GENITOURINARY: Negative. He has a Killian catheter. PULMONARY: No coughing or wheezing. CONSTITUTIONAL: No fevers, chills, or night sweats. NEUROLOGIC: Negative. MUSCULOSKELETAL: He has some aches and pains in different places of his body including he has headache and he has got some shoulder issues. PHYSICAL EXAMINATION: GENERAL: Shows to be middle-aged gentleman, in no respiratory distress. HEENT: Unremarkable. NECK: Supple. No jugular venous distention. LUNGS: Clear to auscultation and percussion. CARDIAC: Irregularly irregular. Tachycardic. No heaves or thrills. ABDOMEN: Hypoactive, quiet. EXTREMITIES: There is no edema. NEUROLOGICAL: Awake, alert, responsive, in no respiratory distress. LABORATORY AND DIAGNOSTIC DATA: Sodium is 139, potassium 3.2, chloride 103, bicarb 29, BUN 11, creatinine 0.8, glucose of 106, and calcium is 8.3. His iron level was 47 with 15% saturation. Ferritin previously B12 of 486 and folic acid of 11.4. His white count today 8, hemoglobin 11.4, and platelet count of 203. His urinalysis from 01/10/2018 appears to be fairly unremarkable. PICC line inserted on 01/10/2018 . His electrocardiogram shows atrial fibrillation with rapid ventricular response, no significant ST-T wave abnormalities of any kind. Preop EKG is not located in this chart. Fortunately, there is a telemetry strip that shows sinus rhythm on 01/11/2018, I suspect that is preop . ASSESSMENT AND PLAN: 1. Atrial fibrillation with rapid ventricular response with history of same a number of years ago. 2. Malfunctioning ileostomy pouch, now status post revision. 3. Diabetes mellitus, new onset. 4. Intentional weight loss of 70 pounds recently. 5. History of ulcerative colitis, status post colectomy. Dr. Lund, this patient was seen in cardiac consultation. The patient is transferred to the stepdown unit, will receive some intravenous beta-blockers to help control his heart rate. If that is not effective, calcium-channel aura, Cardizem, will be administered, and if that is not effective, amiodarone will be used to control the patient's heart rate if needed. There is a good chance that he will spontaneously convert back to sinus rhythm. An echocardiogram will be ordered. Serial enzymes and EKGs will be ordered. Venous duplex of lower extremity and thyroid-stimulating hormone will also be ordered. I have discussed the possible treatment routes with the patient and his , possibility of need for cardioversion does exist if he is hemodynamically unstable or heart rate is uncontrollable. At this time, may not be suitable to get him started on anticoagulation. We will discuss that with Dr. Lund in terms of safety of anticoagulation just early postoperatively. Otherwise need to plan hopefully over the next few weeks of cardioversion if he remains hemodynamically stable. Vikram Monte M.D. DR: Nilsa JOB#: [id number] CC:
[2018-01-15] VITALS: BP 110/65
[2018-01-15 04:00] VITALS: BP 127/70
[2018-01-15 05:57] LABS: ALANINE AMINOTRANSFERASE 23 U/L (12-78); ALBUMIN/GLOBULIN RATIO 0.5 (1.0-2.7); ALKALINE PHOSPHATASE 52 U/L (46-116); ANION GAP 7 mmol/L (5-15); ASPARTATE AMINO TRANSFERASE 16 U/L (15-37); BILIRUBIN,TOTAL 0.4 MG/DL (0.2-1.0); BLOOD UREA NITROGEN 17 mg/dL (7-18); CALCIUM 8.5 MG/DL (8.5-10.1); CARBON DIOXIDE 29 MMOL/L (21-32); CHLORIDE 105 MMOL/L (98-107); CREATININE 0.9 MG/DL (0.55-1.30); POTASSIUM 3.2 MMOL/L (3.5-5.1); SODIUM 141 MMOL/L (136-145)
[2018-01-15] MEDS: Ampicillin/Sulbactam Sod 3 GM in NS 110 ML IV SCH ×4 (06:09→23:57)
[2018-01-15] MEDS: Potassium Chloride 40 MEQ in 1/2 NS 1000ml 1,000 ML IV SCH ×2 (06:55→17:10)
[2018-01-15] MEDS: PCA shift volume MISC SCH (07:24)
[2018-01-15 08:00] VITALS: BP 130/72
[2018-01-15] MEDS: PCA Morphine 1mg/ml 30 ML IV PRN ×2 (10:56→19:53)
[2018-01-15 12:00] VITALS: BP 129/80
--- NOTE | 2018-01-15 12:47 | General Progress Note ---
Progress Note Progress Note Surgery: A fib now in sinus rhythm, asymptomatic. trop mild elevated trending down now Abdomen distended, soft, incision clean. noted some uncomfortable lower abdominal pain this morning but improved after ambulatory and had 500cc ileo output! Urine 725 Gastrostomy 840 BCIR ileo scant serous until just now where he had 500cc succus evacuate labs reviewed. K and Mg replaced. dressings changed tubes checked and stable Imp: Atrial fibrillation - resolved / stable Ileus - slowly improving. Plan: Appreciate Cardiology input O2, EKG, transfer to telemetry ambulate and out of bed. incentive spirometry NPO except meds AM labs Otto Juan Jan 15, 2018 12:47
--- NOTE | 2018-01-15 12:59 | Cardiology Report ---
APPROVED REPORT EXAM: Two-dimensional and M-mode echocardiogram with Doppler and color Doppler. INDICATION Atrial Flutter M-Mode DIMENSIONS IVSd0.8 (0.7-1.1cm)Left Atrium (MM)3.6 (1.6-4.0cm) LVDd4.2 (3.5-5.6cm)Aortic Root2.9 (2.0-3.7cm) PWd0.9 (0.7-1.1cm)Aortic Cusp Exc.2.0 (1.5-2.0cm) LVDs2.9 (2.5-4.0cm) PWs0.8 cm Normal left ventricular chamber size, systolic function and wall motion. Left ventricular ejection fraction estimated to be 60-65%. No evidence of left ventricular hypertrophy. No evidence of pericardial or pleural effusion. Mild bi-atrial enlargement by 2D. Focal aortic valve sclerosis with adequate cusp excursion. Normal mitral valve leaflets with normal excursion. Normal mitral annulus and aortic root. Pulmonic valve not well visualized. Normal tricuspid valve structure. IVC is normal in size with minimal non-collapsible with respiration indicate increased RA pressure. A color flow and spectral Doppler study was performed and revealed: No aortic regurgitation. No mitral regurgitation. Normal mitral diastolic function. No tricuspid regurgitation.
--- NOTE | 2018-01-15 13:18 | Cardiology Progress Note ---
Assessment/Plan Assessment/Plan 1. Atrial fibrillation with rapid ventricular response with history of same a number of years ago. 2. Malfunctioning ileostomy pouch, now status post revision. 3. Diabetes mellitus, new onset. 4. Intentional weight loss of 70 pounds recently. 5. History of ulcerative colitis, status post colectomy. converted back to sinus yest min trop abn likely demand related lv fucntion normal on echo davin sinsu no recurrence fo afib on ivf still ivc non collapsible so he is well hydrated as out pt he shoudl see a carfiologist retirement for fu and have a ziopatch i have discussed that with him and his to ortho floor in am if no furterh afib walk in halls Subjective Cardiovascular: Denies: chest pain, lightheadedness, palpitations Respiratory: Denies: shortness of breath Gastrointestinal/Abdominal: Denies: abdominal pain Genitourinary: Denies: burning Objective Last 24 Hour Vital Signs Date Time Temp Pulse Resp B/P (MAP) Pulse Ox O2 Delivery O2 Flow Rate FiO2 01/15/18 12:00 97.9 75 20 129/80 (96) 98 97.9 01/15/18 12:00 Room Air 01/15/18 12:00 20 01/15/18 08:00 70 01/15/18 08:00 Room Air 01/15/18 08:00 18 01/15/18 08:00 98.1 69 21 130/72 (91) 99 98.1 01/15/18 04:00 98.2 68 20 127/70 (89) 99 98.2 01/15/18 04:00 Room Air 01/15/18 04:00 20 01/15/18 00:00 Room Air 01/15/18 00:00 98.2 63 20 110/65 (80) 99 98.2 01/15/18 00:00 20 01/14/18 20:00 97.9 73 20 119/9 (45) 98 97.9 01/14/18 20:00 Room Air 01/14/18 20:00 20 01/14/18 20:00 66 01/14/18 16:00 98.1 70 20 113/64 (80) 98 98.1 01/14/18 16:00 18 01/14/18 16:00 73 General Appearance: alert Neck: no JVD Cardiovascular: normal rate, regular rhythm Respiratory/Chest: lungs clear Abdomen: normal bowel sounds, soft Extremities: no swelling Intake and Output 01/14/18 01/15/18 19:00 07:00 Intake Total 1630 ml 1789 ml Output Total 895 ml 750 ml Balance 735 ml 1039 ml Intake Oral 0 ml IV Total 1630 ml 1789 ml Output Urine Total 325 ml 400 ml Other 570 ml 350 ml Laboratory Tests Test 01/14/18 20:00 01/15/18 04:00 Troponin I 0.231 ng/mL (0.000-0.056) 0.212 ng/mL (0.000-0.056) Sodium Level 141 MMOL/L (136-145) Potassium Level 3.2 MMOL/L (3.5-5.1) L Chloride Level 105 MMOL/L (98-107) Carbon Dioxide Level 29 MMOL/L (21-32) Anion Gap 7 mmol/L (5-15) Blood Urea Nitrogen 17 mg/dL (7-18) Creatinine 0.9 MG/DL (0.55-1.30) Estimat Glomerular Filtration Rate > 60 mL/min (>60) Glucose Level 114 MG/DL (74-106) H Calcium Level 8.5 MG/DL (8.5-10.1) Magnesium Level 1.6 MG/DL (1.8-2.4) L Total Bilirubin 0.4 MG/DL (0.2-1.0) Aspartate Amino Transf (AST/SGOT) 16 U/L (15-37) Alanine Aminotransferase (ALT/SGPT) 23 U/L (12-78) Alkaline Phosphatase 52 U/L (46-116) Pro-B-Type Natriuretic Peptide 1047 pg/mL (0-125) H Total Protein 5.7 G/DL (6.4-8.2) L Albumin 2.0 G/DL (3.4-5.0) L Globulin 3.7 g/dL Albumin/Globulin Ratio 0.5 (1.0-2.7) L Vikram Monte MD Jan 15, 2018 13:18
[2018-01-15] MEDS ORDERED: Potassium Phosphate 20 MM in NS 275 ML IV ONE (15:00)
[2018-01-15 16:00] VITALS: BP 128/77
[2018-01-15] MEDS ORDERED: Sterile Water Irrig 1000ml IRRIG ONE (16:20)
[2018-01-15] MEDS ORDERED: NS 500ML ONE (16:20)
[2018-01-15] MEDS ORDERED: NS 275ml ONE (16:20)
[2018-01-15] MEDS ORDERED: Tubing IV Secondary IV ONE (16:20)
[2018-01-15] MEDS ORDERED: NS Irrig 1000ml ONE (16:20)
[2018-01-15] MEDS ORDERED: Rate Change PCA 1 Each MISC PRN (19:45)
[2018-01-15] MEDS: Dyna-Hex 2% Top Sol 2oz TOPIC SCH (19:59)
[2018-01-15 20:00] VITALS: BP 121/70
[2018-01-15] MEDS ORDERED: Morphine Sulfate 4mg/ml Inj (IV USE ONLY) IV PRN (20:00)
[2018-01-15] MEDS ORDERED: Morphine Sulfate 2mg/ml Inj(IV/IM USE ONLY) IV PRN (20:00)
[2018-01-15] MEDS: Iron Sucrose 100 MG in NS 55 ML IV SCH (21:03)
[2018-01-15] MEDS ORDERED: DiphenhydrAMINE 50mg/ml Inj IVP PRN (21:45)
[2018-01-16] VITALS (7 sets, daily range): BP systolic 120–147; BP diastolic 61–77
[2018-01-16] MEDS: Potassium Chloride 40 MEQ in 1/2 NS 1000ml 1,000 ML IV SCH ×3 (02:52→23:39)
[2018-01-16 03:52] LABS: BASOPHILS % (AUTO) 0.9 % (0.0-2.0); EOSINOPHILS % (AUTO) 5.9 % (0.0-3.0); HEMOGLOBIN 11.3 G/DL (14.2-18.0); LYMPHOCYTES % (AUTO) 15.9 % (20.0-45.0); MEAN CORPUSCULAR VOLUME 90 FL (80-99); MONOCYTES % (AUTO) 11.4 % (1.0-10.0); NEUTROPHILS % (AUTO) 65.9 % (45.0-75.0); PLATELET COUNT 239 K/UL (150-450); RED BLOOD COUNT 3.57 M/UL (4.70-6.10); WHITE BLOOD COUNT 5.4 K/UL (4.8-10.8)
[2018-01-16] MEDS: PCA Morphine 1mg/ml 30 ML IV PRN (04:09)
[2018-01-16 04:11] LABS: ALANINE AMINOTRANSFERASE 18 U/L (12-78); ALBUMIN/GLOBULIN RATIO 0.6 (1.0-2.7); ALKALINE PHOSPHATASE 47 U/L (46-116); ANION GAP 4 mmol/L (5-15); ASPARTATE AMINO TRANSFERASE 13 U/L (15-37); BILIRUBIN,TOTAL 0.3 MG/DL (0.2-1.0); BLOOD UREA NITROGEN 16 mg/dL (7-18); CALCIUM 8.2 MG/DL (8.5-10.1); CARBON DIOXIDE 33 MMOL/L (21-32); CHLORIDE 107 MMOL/L (98-107); CREATININE 0.9 MG/DL (0.55-1.30); POTASSIUM 3.9 MMOL/L (3.5-5.1); SODIUM 144 MMOL/L (136-145)
[2018-01-16] MEDS: Ampicillin/Sulbactam Sod 3 GM in NS 110 ML IV SCH ×4 (05:51→23:39)
[2018-01-16] MEDS ORDERED: PCA shift volume MISC SCH (07:00)
[2018-01-16] MEDS ORDERED: Acetaminophen 650mg/20.3ml GT PRN (18:47)
[2018-01-16] MEDS ORDERED: Morphine Sulfate 4mg/ml Inj (IV USE ONLY) IV PRN (18:48)
[2018-01-16] MEDS ORDERED: DiphenhydrAMINE 50mg/ml Inj IVP PRN (18:48)
[2018-01-16] MEDS ORDERED: Morphine Sulfate 2mg/ml Inj(IV/IM USE ONLY) IV PRN (18:48)
[2018-01-16] MEDS ORDERED: LORazepam 1mg tab SL PRN ×2 (18:48→21:00)
[2018-01-16] MEDS ORDERED: Potassium Chloride 40 MEQ in 1/2 NS 1000ml 1,000 ML IV SCH (18:50)
[2018-01-16] MEDS ORDERED: PCA Morphine 1mg/ml 30 ML IV PRN ×2 (18:50)
[2018-01-16] MEDS ORDERED: Rate Change PCA 1 Each MISC PRN ×2 (18:51)
[2018-01-16] MEDS ORDERED: Metoprolol Tartrate 5 MG in D5W 55 ML IVPB PRN (18:52)
[2018-01-16] MEDS ORDERED: Insulin Human Regular 100units/ml 3ml SUBQ PRN (18:56)
[2018-01-16] MEDS: PCA shift volume MISC SCH (19:00)
--- NOTE | 2018-01-16 20:09 | General Progress Note ---
Progress Note Progress Note NSR. doing well Abdomen no longer distended, soft, incision clean. Urine okay Gastrostomy decreased BCIR with good output now labs reviewed. dressings changed tubes checked and stable Imp: Atrial fibrillation - resolved / stable Ileus - slowly improving. Plan: Appreciate Cardiology input O2, EKG, transfer to telemetry ambulate and out of bed. incentive spirometry NPO except meds AM labs return to 3E Otto Juan Jan 16, 2018 20:09
--- NOTE | 2018-01-16 20:11 | Cardiology Progress Note ---
Assessment/Plan Assessment/Plan 1. Atrial fibrillation with rapid ventricular response with history of same a number of years ago. 2. Malfunctioning ileostomy pouch, now status post revision. 3. Diabetes mellitus, new onset. 4. Intentional weight loss of 70 pounds recently. 5. History of ulcerative colitis, status post colectomy. 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 processing supervisor care home for fu and have a ziopatch i have discussed that with him and his walking in halls Subjective Cardiovascular: Denies: chest pain, lightheadedness, palpitations Respiratory: Denies: shortness of breath Gastrointestinal/Abdominal: Denies: abdominal pain Genitourinary: Denies: burning Objective Last 24 Hour Vital Signs Date Time Temp Pulse Resp B/P (MAP) Pulse Ox O2 Delivery O2 Flow Rate FiO2 01/16/18 18:58 98.4 56 20 137/70 (92) 98 98.4 01/16/18 16:00 Room Air 01/16/18 16:00 53 01/16/18 16:00 98.3 53 20 121/61 (81) 97 98.3 01/16/18 16:00 20 01/16/18 12:00 Room Air 01/16/18 12:00 54 01/16/18 12:00 98.3 53 20 121/61 (81) 97 98.3 01/16/18 12:00 20 01/16/18 08:00 20 01/16/18 08:00 98.0 55 20 129/70 (89) 99 98.0 01/16/18 08:00 Room Air 01/16/18 08:00 69 01/16/18 04:03 20 01/16/18 04:00 Room Air 01/16/18 04:00 97.5 54 20 126/71 (89) 99 97.5 01/16/18 03:57 76 01/16/18 00:00 54 01/16/18 00:00 Room Air 01/16/18 00:00 97.8 60 20 120/70 (87) 100 97.8 01/15/18 23:58 18 General Appearance: alert Neck: supple Cardiovascular: regular rhythm Respiratory/Chest: lungs clear, normal breath sounds Abdomen: soft Extremities: no swelling Intake and Output 01/15/18 01/16/18 19:00 07:00 Intake Total 1945.882 ml 1820.7847 ml Output Total 2245 ml 980 ml Balance -299.118 ml 840.7847 ml Intake Oral 0 ml IV Total 1945.882 ml 1820.7847 ml Output Urine Total 450 ml 460 ml Stool Total 1500 ml 460 ml Other 295 ml 60 ml Laboratory Tests Test 01/16/18 03:35 White Blood Count 5.4 K/UL (4.8-10.8) Red Blood Count 3.57 M/UL (4.70-6.10) L Hemoglobin 11.3 G/DL (14.2-18.0) L Hematocrit 32.0 % (42.0-52.0) L Mean Corpuscular Volume 90 FL (80-99) Mean Corpuscular Hemoglobin 31.8 PG (27.0-31.0) H Mean Corpuscular Hemoglobin Concent 35.4 G/DL (32.0-36.0) Red Cell Distribution Width 11.0 % (11.6-14.8) L Platelet Count 239 K/UL (150-450) Mean Platelet Volume 7.3 FL (6.5-10.1) Neutrophils (%) (Auto) 65.9 % (45.0-75.0) Lymphocytes (%) (Auto) 15.9 % (20.0-45.0) L Monocytes (%) (Auto) 11.4 % (1.0-10.0) H Eosinophils (%) (Auto) 5.9 % (0.0-3.0) H Basophils (%) (Auto) 0.9 % (0.0-2.0) Sodium Level 144 MMOL/L (136-145) Potassium Level 3.9 MMOL/L (3.5-5.1) Chloride Level 107 MMOL/L (98-107) Carbon Dioxide Level 33 MMOL/L (21-32) H Anion Gap 4 mmol/L (5-15) L Blood Urea Nitrogen 16 mg/dL (7-18) Creatinine 0.9 MG/DL (0.55-1.30) Estimat Glomerular Filtration Rate > 60 mL/min (>60) Glucose Level 108 MG/DL (74-106) H Calcium Level 8.2 MG/DL (8.5-10.1) L Total Bilirubin 0.3 MG/DL (0.2-1.0) Aspartate Amino Transf (AST/SGOT) 13 U/L (15-37) L Alanine Aminotransferase (ALT/SGPT) 18 U/L (12-78) Alkaline Phosphatase 47 U/L (46-116) Total Protein 5.5 G/DL (6.4-8.2) L Albumin 2.0 G/DL (3.4-5.0) L Globulin 3.5 g/dL Albumin/Globulin Ratio 0.6 (1.0-2.7) L Vikram Monte MD Jan 16, 2018 20:11
[2018-01-16] MEDS: Dyna-Hex 2% Top Sol 2oz TOPIC SCH (20:52)
[2018-01-16] MEDS ORDERED: Iron Sucrose 100 MG in NS 55 ML IV SCH (21:00)
[2018-01-17] VITALS: BP 136/74
[2018-01-17 04:00] VITALS: BP 109/65
[2018-01-17 04:42] LABS: BASOPHILS % (AUTO) 1.3 % (0.0-2.0); EOSINOPHILS % (AUTO) 3.8 % (0.0-3.0); HEMATOCRIT 31.8 % (42.0-52.0); HEMOGLOBIN 11.1 G/DL (14.2-18.0); LYMPHOCYTES % (AUTO) 12.9 % (20.0-45.0); MEAN CORPUSCULAR VOLUME 89 FL (80-99); NEUTROPHILS % (AUTO) 71.1 % (45.0-75.0); PLATELET COUNT 258 K/UL (150-450); RED BLOOD COUNT 3.57 M/UL (4.70-6.10); RED CELL DISTRIBUTION WIDTH 10.9 % (11.6-14.8); WHITE BLOOD COUNT 6.5 K/UL (4.8-10.8)
[2018-01-17 05:17] LABS: ANION GAP 8 mmol/L (5-15); BLOOD UREA NITROGEN 13 mg/dL (7-18); CALCIUM 7.9 MG/DL (8.5-10.1); CARBON DIOXIDE 26 MMOL/L (21-32); CHLORIDE 106 MMOL/L (98-107); CREATININE 0.8 MG/DL (0.55-1.30); POTASSIUM 3.6 MMOL/L (3.5-5.1); SODIUM 140 MMOL/L (136-145)
[2018-01-17] MEDS: Ampicillin/Sulbactam Sod 3 GM in NS 110 ML IV SCH (06:14)
[2018-01-17] MEDS: PCA shift volume MISC SCH ×2 (07:25→19:00)
[2018-01-17 08:00] VITALS: BP 127/72
[2018-01-17] MEDS: Potassium Chloride 40 MEQ in 1/2 NS 1000ml 1,000 ML IV SCH ×3 (09:05→21:29)
--- NOTE | 2018-01-17 09:27 | General Progress Note ---
Progress Note Progress Note AVSS Atrial fibrillation resolved. Ambulating well Abdomen mildly distended, incision clean, stoma pink, benito scant Urine 1850 Gastrostomy 439 BCIR ileo 280 WBC 6500 Hgb 11.1 BMP-wnl Albumin 2 (3.2 on admission) Imp. slowly resolving ileus malnutrition Plan: TPN remove Killian catheter d/c antibiotics continue NPO Vargas Campos MD Jan 17, 2018 09:27
[2018-01-17] MEDS ORDERED: LORazepam 1mg tab SL PRN (09:30)
[2018-01-17] MEDS ORDERED: Morphine Sulfate 4mg/ml Inj (IV USE ONLY) IV PRN (09:48)
[2018-01-17] MEDS ORDERED: Morphine Sulfate 2mg/ml Inj(IV/IM USE ONLY) IV PRN (10:48)
[2018-01-17 12:00] VITALS: BP 132/67
[2018-01-17 16:00] VITALS: BP 131/69
[2018-01-17] MEDS ORDERED: Dextrose 10% 1,000 ML IV PRN (20:00)
[2018-01-17 20:22] VITALS: BP 139/75
[2018-01-17] MEDS ORDERED: Fat Emulsion Iv 20% 250 ML IV SCH (21:00)
[2018-01-17] MEDS: Dyna-Hex 2% Top Sol 2oz TOPIC SCH (21:26)
[2018-01-17] MEDS: Iron Sucrose 100 MG in NS 55 ML IV SCH (21:26)
[2018-01-17] MEDS: FAT EMULSION 20% IV SCH (21:28)
[2018-01-17] MEDS: TPN IV SCH (21:28)
[2018-01-18 00:13] VITALS: BP 134/71
[2018-01-18] MEDS: NovoLOG Insulin Flexpen SUBQ SCH ×4 (01:23→17:51)
[2018-01-18 03:59] VITALS: BP 139/79
[2018-01-18 05:17] LABS: BASOPHILS % (AUTO) 0.9 % (0.0-2.0); EOSINOPHILS % (AUTO) 3.4 % (0.0-3.0); HEMATOCRIT 33.9 % (42.0-52.0); HEMOGLOBIN 12.5 G/DL (14.2-18.0); LYMPHOCYTES % (AUTO) 10.8 % (20.0-45.0); MEAN CORPUSCULAR VOLUME 88 FL (80-99); MONOCYTES % (AUTO) 10.4 % (1.0-10.0); NEUTROPHILS % (AUTO) 74.5 % (45.0-75.0); PLATELET COUNT 273 K/UL (150-450); RED BLOOD COUNT 3.83 M/UL (4.70-6.10); RED CELL DISTRIBUTION WIDTH 10.6 % (11.6-14.8)
[2018-01-18 05:39] LABS: ANION GAP 6 mmol/L (5-15); BLOOD UREA NITROGEN 13 mg/dL (7-18); CALCIUM 8.1 MG/DL (8.5-10.1); CARBON DIOXIDE 29 MMOL/L (21-32); CHLORIDE 102 MMOL/L (98-107); CREATININE 0.9 MG/DL (0.55-1.30); POTASSIUM 3.7 MMOL/L (3.5-5.1); SODIUM 137 MMOL/L (136-145)
[2018-01-18] MEDS: PCA shift volume MISC SCH ×2 (07:00→19:00)
[2018-01-18] MEDS ORDERED: Rate Change PCA 1 Each MISC PRN (07:45)
[2018-01-18] MEDS ORDERED: LORazepam 1mg tab SL PRN (07:45)
[2018-01-18] MEDS ORDERED: PCA Morphine 1mg/ml 30 ML IV PRN (07:45)
[2018-01-18] MEDS ORDERED: Morphine Sulfate 4mg/ml Inj (IV USE ONLY) IV PRN (07:45)
[2018-01-18] MEDS ORDERED: Naloxone 0.4mg/ml Inj IVP PRN (07:45)
[2018-01-18] MEDS ORDERED: PCA Education Pamphlet MISC ONE (07:45)
[2018-01-18] MEDS ORDERED: Morphine Sulfate 2mg/ml Inj(IV/IM USE ONLY) IVP PRN (07:45)
[2018-01-18 08:00] VITALS: BP 125/71
--- NOTE | 2018-01-18 08:35 | General Progress Note ---
Progress Note Progress Note AVSS Feeling better less bloated Abdomen non-distended, healing nicely Urine 1830 Gastrostomy 590 BCIR ileo 1180 WBC 7000 Hgb 12.5 BMP-wnl (glucose 188) Imp. Ileus resolved Plan: diabetic clear liquid diet gastrostomy 3:3 protocol Vargas Lund MD Jan 18, 2018 08:35
[2018-01-18] MEDS: Neosporin Oint Ud Pkt TOPIC SCH ×4 (09:17→21:29)
[2018-01-18 12:00] VITALS: BP 133/81
[2018-01-18 16:00] VITALS: BP 127/76
[2018-01-18] MEDS ORDERED: PCA shift volume MISC SCH (19:00)
[2018-01-18 20:00] VITALS: BP 121/72
--- NOTE | 2018-01-18 20:26 | Cardiology Progress Note ---
Assessment/Plan Assessment/Plan 1. Atrial fibrillation with rapid ventricular response with history of same a number of years ago. 2. Malfunctioning ileostomy pouch, now status post revision. 3. Diabetes mellitus, new onset. 4. Intentional weight loss of 70 pounds recently. 5. History of ulcerative colitis, status post colectomy. 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8 01/18/18 08:00 20 01/18/18 04:00 18 01/18/18 03:59 98.0 60 16 139/79 (99) 97 98.0 01/18/18 00:13 97.9 58 19 134/71 (92) 98 97.9 01/18/18 00:00 18 01/17/18 21:00 Room Air 01/17/18 20:22 97.6 55 17 139/75 (96) 98 97.6 General Appearance: no apparent distress, alert Neck: supple Cardiovascular: normal rate, bradycardia Respiratory/Chest: lungs clear, normal breath sounds Abdomen: normal bowel sounds Extremities: no swelling Intake and Output 01/17/18 01/18/18 19:00 07:00 Output Total 1740 ml 1860 ml Balance -1740 ml -1860 ml Output Urine Total 850 ml 980 ml Other 890 ml 880 ml # Voids 4 4 Laboratory Tests Test 01/18/18 04:11 White Blood Count 7.0 K/UL (4.8-10.8) Red Blood Count 3.83 M/UL (4.70-6.10) L Hemoglobin 12.5 G/DL (14.2-18.0) L Hematocrit 33.9 % (42.0-52.0) L Mean Corpuscular Volume 88 FL (80-99) Mean Corpuscular Hemoglobin 32.6 PG (27.0-31.0) H Mean Corpuscular Hemoglobin Concent 36.9 G/DL (32.0-36.0) H Red Cell Distribution Width 10.6 % (11.6-14.8) L Platelet Count 273 K/UL (150-450) Mean Platelet Volume 7.2 FL (6.5-10.1) Neutrophils (%) (Auto) 74.5 % (45.0-75.0) Lymphocytes (%) (Auto) 10.8 % (20.0-45.0) L Monocytes (%) (Auto) 10.4 % (1.0-10.0) H Eosinophils (%) (Auto) 3.4 % (0.0-3.0) H Basophils (%) (Auto) 0.9 % (0.0-2.0) Sodium Level 137 MMOL/L (136-145) Potassium Level 3.7 MMOL/L (3.5-5.1) Chloride Level 102 MMOL/L (98-107) Carbon Dioxide Level 29 MMOL/L (21-32) Anion Gap 6 mmol/L (5-15) Blood Urea Nitrogen 13 mg/dL (7-18) Creatinine 0.9 MG/DL (0.55-1.30) Estimat Glomerular Filtration Rate > 60 mL/min (>60) Glucose Level 188 MG/DL (74-106) H Calcium Level 8.1 MG/DL (8.5-10.1) Vikram Otero MD Jan 18, 2018 20:26
[2018-01-18] MEDS: Dyna-Hex 2% Top Sol 2oz TOPIC SCH (21:28)
[2018-01-18] MEDS: Potassium Chloride 40 MEQ in 1/2 NS 1000ml 1,000 ML IV SCH (21:28)
[2018-01-18] MEDS: FAT EMULSION 20% IV SCH (21:28)
[2018-01-18] MEDS: TPN IV SCH (21:28)
[2018-01-18] MEDS: Iron Sucrose 100 MG in NS 55 ML IV SCH (21:28)
[2018-01-19] VITALS: BP 122/64
[2018-01-19] MEDS: NovoLOG Insulin Flexpen SUBQ SCH ×4 (00:16→17:21)
[2018-01-19] MEDS: Neosporin Oint Ud Pkt TOPIC SCH ×6 (00:17→21:19)
[2018-01-19 06:00] VITALS: BP 126/73
[2018-01-19] MEDS: PCA shift volume MISC SCH ×2 (07:00→19:00)
[2018-01-19 08:00] VITALS: BP 127/75
[2018-01-19] MEDS ORDERED: Rate Change PCA 1 Each MISC PRN (08:15)
[2018-01-19] MEDS ORDERED: Naloxone 0.4mg/ml Inj IVP PRN (08:15)
--- NOTE | 2018-01-19 08:21 | General Progress Note ---
Progress Note Progress Note AVSS tolerated clear liquid diet and gastrostomy 3:3 protocol. Still using SPECIAL SYSTEMS TECHNICIAN during the night to facilitate getting up to void multiple times Abdomen soft, healing nicely Urine 2900 Gastrostomy 1740 (was open to drainage during meals yesterday) BCIR ileo 940 Imp. Improving Plan: Diabetic full liquid diet Gastrostomy 5:1 protocol continue SPECIAL SYSTEMS TECHNICIAN additional day continue TPN f/u labs Vargas Lund MD Jan 19, 2018 08:21
[2018-01-19] MEDS ORDERED: Morphine Sulfate 2mg/ml Inj(IV/IM USE ONLY) IVP PRN (08:30)
[2018-01-19] MEDS ORDERED: PCA Morphine 1mg/ml 30 ML IV PRN (08:30)
[2018-01-19] MEDS ORDERED: Morphine Sulfate 4mg/ml Inj (IV USE ONLY) IV PRN (08:30)
[2018-01-19] MEDS ORDERED: LORazepam 1mg tab SL PRN (09:00)
[2018-01-19 12:00] VITALS: BP 135/77
[2018-01-19 16:00] VITALS: BP 122/76
[2018-01-19 20:00] VITALS: BP 109/60
[2018-01-19] MEDS: TPN IV SCH (20:19)
[2018-01-19] MEDS: FAT EMULSION 20% IV SCH (20:19)
[2018-01-19] MEDS: Potassium Chloride 40 MEQ in 1/2 NS 1000ml 1,000 ML IV SCH (21:19)
[2018-01-19] MEDS: Dyna-Hex 2% Top Sol 2oz TOPIC SCH (21:19)
[2018-01-19] MEDS: Iron Sucrose 100 MG in NS 55 ML IV SCH (21:19)
[2018-01-20] VITALS (7 sets, daily range): BP systolic 129–142; BP diastolic 69–76
[2018-01-20] MEDS: NovoLOG Insulin Flexpen SUBQ SCH ×4 (00:17→18:10)
[2018-01-20] MEDS: Neosporin Oint Ud Pkt TOPIC SCH ×6 (00:23→21:11)
[2018-01-20 05:45] LABS: BASOPHILS % (AUTO) 0.9 % (0.0-2.0); EOSINOPHILS % (AUTO) 4.2 % (0.0-3.0); HEMOGLOBIN 12.3 G/DL (14.2-18.0); LYMPHOCYTES % (AUTO) 15.1 % (20.0-45.0); MEAN CORPUSCULAR VOLUME 89 FL (80-99); MONOCYTES % (AUTO) 10.9 % (1.0-10.0); PLATELET COUNT 311 K/UL (150-450); RED BLOOD COUNT 3.94 M/UL (4.70-6.10); RED CELL DISTRIBUTION WIDTH 11.3 % (11.6-14.8)
[2018-01-20 05:57] LABS: ALANINE AMINOTRANSFERASE 23 U/L (12-78); ALBUMIN 2.2 G/DL (3.4-5.0); ALBUMIN/GLOBULIN RATIO 0.6 (1.0-2.7); ALKALINE PHOSPHATASE 52 U/L (46-116); ANION GAP 5 mmol/L (5-15); ASPARTATE AMINO TRANSFERASE 18 U/L (15-37); BILIRUBIN,TOTAL 0.2 MG/DL (0.2-1.0); BLOOD UREA NITROGEN 13 mg/dL (7-18); CALCIUM 8.5 MG/DL (8.5-10.1); CARBON DIOXIDE 29 MMOL/L (21-32); CHLORIDE 104 MMOL/L (98-107); CREATININE 0.8 MG/DL (0.55-1.30); POTASSIUM 4.4 MMOL/L (3.5-5.1); SODIUM 138 MMOL/L (136-145)
[2018-01-20] MEDS: PCA shift volume MISC SCH (07:02)
--- NOTE | 2018-01-20 07:41 | General Progress Note ---
Progress Note Progress Note AVSS Not using SENIOR OFFICE ASSISTANT. C/O cramping today after small amount po fluids Abdomen mildly distended, soft, tympanitic, incision clean, stoma healing Urine 3300 Gastrostomy 720 (5:1 protocol) BCIR ileo 965 WBC 6000 Hgb 12.3 BMP-wnl Imp. early post-operative partial SBO Plan: NPO Gastrostomy to continuous gravity drainage Continue TPN D/C SENIOR OFFICE ASSISTANT Vargas Lund MD Jan 20, 2018 07:40
[2018-01-20] MEDS ORDERED: Vitamin B12 1000mcg/ml Inj IM SCH (08:15)
[2018-01-20] MEDS ORDERED: Norco 5mg/325mg tab ORAL PRN (08:15)
[2018-01-20] MEDS ORDERED: NS 275ml ONE (16:16)
[2018-01-20] MEDS ORDERED: Tubing IV Secondary IV ONE (16:16)
[2018-01-20] MEDS ORDERED: NS Irrig 1000ml ONE ×2 (16:16→16:50)
--- NOTE | 2018-01-20 16:33 | Cardiology Report ---
APPROVED REPORT EKG Measurement Heart [id number] Normal sinus rhythm Prolonged QT Abnormal ECG
[2018-01-20] MEDS: Hyoscyamine 0.125mg tab ORAL PRN (17:35)
--- NOTE | 2018-01-20 18:55 | Cardiology Progress Note ---
Assessment/Plan Assessment/Plan 1. Atrial fibrillation with rapid ventricular response with history of same a number of years ago. 2. Malfunctioning ileostomy pouch, now status post revision. 3. Diabetes mellitus, new onset. 4. Intentional weight loss of 70 pounds recently. 5. History of ulcerative colitis, status post colectomy. remain sinus but migue min trop abn likely demand related lv fucntion normal on echo on ivf still ekg for migue likley related to morphine but no symptoms as out pt he shoudl see a life skills consultant group home for fu and have a ziopatch i have discussed that with him and his walking in halls Subjective Cardiovascular: Denies: chest pain, lightheadedness, palpitations Genitourinary: Denies: burning Objective Last 24 Hour Vital Signs Date Time Temp Pulse Resp B/P (MAP) Pulse Ox O2 Delivery O2 Flow Rate FiO2 01/20/18 16:00 98.1 60 20 142/75 (97) 98 98.1 01/20/18 11:52 98.2 54 20 140/71 (94) 99 98.2 01/20/18 09:00 Room Air 01/20/18 08:00 97.9 57 21 132/71 (91) 96 97.9 01/20/18 05:51 97.6 57 18 137/76 (96) 100 97.6 01/20/18 04:00 97.6 57 18 137/76 (96) 99 97.6 01/20/18 04:00 18 01/20/18 00:00 18 01/20/18 00:00 97.7 54 17 132/70 (90) 96 97.7 01/19/18 21:00 Room Air 01/19/18 20:00 18 01/19/18 20:00 97.7 56 17 109/60 (76) 98 97.7 General Appearance: no apparent distress, alert Neck: supple Cardiovascular: normal rate Respiratory/Chest: lungs clear Abdomen: normal bowel sounds, non tender, soft Extremities: no swelling Intake and Output 01/19/18 01/20/18 19:00 07:00 Intake Total 2181 ml 1445 ml Output Total 2250 ml 835 ml Balance -69 ml 610 ml Intake Oral 960 ml 300 ml IV Total 1221 ml 1145 ml Output Urine Total 1400 ml Other 850 ml 835 ml Laboratory Tests Test 01/20/18 04:31 White Blood Count 6.0 K/UL (4.8-10.8) Red Blood Count 3.94 M/UL (4.70-6.10) L Hemoglobin 12.3 G/DL (14.2-18.0) L Hematocrit 35.0 % (42.0-52.0) L Mean Corpuscular Volume 89 FL (80-99) Mean Corpuscular Hemoglobin 31.4 PG (27.0-31.0) H Mean Corpuscular Hemoglobin Concent 35.2 G/DL (32.0-36.0) Red Cell Distribution Width 11.3 % (11.6-14.8) L Platelet Count 311 K/UL (150-450) Mean Platelet Volume 7.6 FL (6.5-10.1) Neutrophils (%) (Auto) 69.0 % (45.0-75.0) Lymphocytes (%) (Auto) 15.1 % (20.0-45.0) L Monocytes (%) (Auto) 10.9 % (1.0-10.0) H Eosinophils (%) (Auto) 4.2 % (0.0-3.0) H Basophils (%) (Auto) 0.9 % (0.0-2.0) Sodium Level 138 MMOL/L (136-145) Potassium Level 4.4 MMOL/L (3.5-5.1) Chloride Level 104 MMOL/L (98-107) Carbon Dioxide Level 29 MMOL/L (21-32) Anion Gap 5 mmol/L (5-15) Blood Urea Nitrogen 13 mg/dL (7-18) Creatinine 0.8 MG/DL (0.55-1.30) Estimat Glomerular Filtration Rate > 60 mL/min (>60) Glucose Level 173 MG/DL (74-106) H Calcium Level 8.5 MG/DL (8.5-10.1) Total Bilirubin 0.2 MG/DL (0.2-1.0) Aspartate Amino Transf (AST/SGOT) 18 U/L (15-37) Alanine Aminotransferase (ALT/SGPT) 23 U/L (12-78) Alkaline Phosphatase 52 U/L (46-116) Total Protein 5.9 G/DL (6.4-8.2) L Albumin 2.2 G/DL (3.4-5.0) L Globulin 3.7 g/dL Albumin/Globulin Ratio 0.6 (1.0-2.7) L Vikram Monte MD Jan 20, 2018 18:55
[2018-01-20] MEDS: Dyna-Hex 2% Top Sol 2oz TOPIC SCH (21:11)
[2018-01-20] MEDS: Iron Sucrose 100 MG in NS 55 ML IV SCH (21:11)
[2018-01-20] MEDS: TPN IV SCH (21:13)
[2018-01-20] MEDS: FAT EMULSION 20% IV SCH (21:13)
[2018-01-21] VITALS: BP 140/78
[2018-01-21] MEDS: NovoLOG Insulin Flexpen SUBQ SCH ×4 (00:17→17:25)
[2018-01-21] MEDS: Neosporin Oint Ud Pkt TOPIC SCH ×6 (00:22→20:42)
[2018-01-21] MEDS: Hyoscyamine 0.125mg tab ORAL PRN (00:22)
[2018-01-21 04:00] VITALS: BP 141/72
[2018-01-21 08:00] VITALS: BP 120/78
[2018-01-21] MEDS ORDERED: LORazepam 1mg tab SL PRN (09:00)
--- NOTE | 2018-01-21 09:11 | General Progress Note ---
Progress Note Progress Note AVSS Continue cramping abdominal pain relieved only by walking Abdomen soft, minimal distention but tympanitic. Healing nicely Urine 4200 BCIR Gastrostomy 1989 BCIR ileo 1989 (1420cc overnight) C. difficile toxin negative Imp. Cramping pain with high volume ileostomy output ? etiology R/O intra- abdominal seroma, etc Plan; STAT CT scan abd+pelvis with oral and IV contrast continue TPN, npo f/u labs Vargas Lund MD Jan 21, 2018 09:11
[2018-01-21 09:55] LABS: BASOPHILS % (AUTO) 1.4 % (0.0-2.0); EOSINOPHILS % (AUTO) 1.7 % (0.0-3.0); HEMATOCRIT 42.9 % (42.0-52.0); HEMOGLOBIN 14.6 G/DL (14.2-18.0); MEAN CORPUSCULAR VOLUME 90 FL (80-99); MONOCYTES % (AUTO) 6.5 % (1.0-10.0); NEUTROPHILS % (AUTO) 80.5 % (45.0-75.0); PLATELET COUNT 430 K/UL (150-450); RED BLOOD COUNT 4.75 M/UL (4.70-6.10); RED CELL DISTRIBUTION WIDTH 12.1 % (11.6-14.8); WHITE BLOOD COUNT 9.1 K/UL (4.8-10.8)
[2018-01-21 10:02] LABS: ANION GAP 7 mmol/L (5-15); BLOOD UREA NITROGEN 16 mg/dL (7-18); CARBON DIOXIDE 29 MMOL/L (21-32); CHLORIDE 102 MMOL/L (98-107); CREATININE 0.9 MG/DL (0.55-1.30); POTASSIUM 4.3 MMOL/L (3.5-5.1); SODIUM 138 MMOL/L (136-145)
[2018-01-21] MEDS: D5 1/2NS w/KCl 20mEq 1,000 ML IV SCH (10:35)
[2018-01-21 12:00] VITALS: BP 136/73
--- NOTE | 2018-01-21 12:55 | Diagnostic Imaging Report ---
History: ABD PAIN Exam: CT ABDOMEN + PELVIS With Contrast Technique more: CTDI is 15.03 mGy and DLP is 816 mGy-cm. Technique more: One or more of the following dose reduction techniques were used: automated exposure control, adjustment of the mA and/or kV according to patient size, use of iterative reconstruction technique. Comparison: None available FINDINGS: Small right and very small left pleural effusions with associated atelectasis. Small amount of air in the abdominal cavity status post laparotomy is nonspecific. Percutaneous gastrostomy tube in place. A percutaneous tube is seen in the right lower abdomen and upper pelvis with adjacent areas of surgical staple line and apparent colectomy, correlate with history. 2.8 x 2.3 x 3.5 cm fluid collection at the posterior upper pelvis axial 67 and sagittal 42 consistent with abscess. Prominent appearance of bowel throughout the abdomen with scattered fluid levels suggest possible ileus. The liver, adrenal glands, kidneys, spleen, pancreas and abdominal aorta appear within limits. A few small partially calcified gallstones nondistended, noninflamed gallbladder. The bladder appears unremarkable. IMPRESSION: Small right and very small left pleural effusions with associated atelectasis. Small amount of air in the abdominal cavity status post laparotomy is nonspecific. Percutaneous gastrostomy tube in place. A percutaneous tube is seen in the right lower abdomen and upper pelvis with adjacent areas of surgical staple line and apparent colectomy, correlate with history. 2.8 x 2.3 x 3.5 cm fluid collection at the posterior upper pelvis axial 67 and sagittal 42 consistent with abscess. Prominent appearance of bowel throughout the abdomen with scattered fluid levels suggest possible ileus. A few small partially calcified gallstones nondistended, noninflamed gallbladder.
[2018-01-21 16:00] VITALS: BP 147/73
--- NOTE | 2018-01-21 17:18 | Cardiology Progress Note ---
Assessment/Plan Assessment/Plan paroxysmal a fib he is in sinus rhythm now Subjective Subjective The patient is resting in bed, comfortable has mild abdominal discomfort Objective Last 24 Hour Vital Signs Date Time Temp Pulse Resp B/P (MAP) Pulse Ox O2 Delivery O2 Flow Rate FiO2 01/21/18 12:00 97.6 66 18 136/73 (94) 100 97.6 59 01/21/18 09:00 Room Air 01/21/18 08:00 97.7 64 22 120/78 (92) 98 97.7 59 01/21/18 04:00 98.0 59 18 141/72 (95) 98 98.0 59 01/21/18 00:00 97.8 60 17 140/78 (98) 97 97.8 60 01/20/18 21:00 Room Air 01/20/18 20:00 97.8 69 18 129/69 (89) 97 97.8 General Appearance: no apparent distress EENT: PERRL/EOMI Neck: non-tender Rhythm: NSR Cardiovascular: normal rate Respiratory/Chest: crackles/rales - at bases Abdomen: hypoactive bowel sounds Extremities: normal capillary refill Intake and Output 01/20/18 01/21/18 19:00 07:00 Intake Total 1177 ml Output Total 2840 ml 3900 ml Balance -1663 ml -3900 ml Intake Oral 120 ml IV Total 1057 ml Output Urine Total 2000 ml 2200 ml Other 840 ml 1700 ml # Voids 4 Laboratory Tests Test 01/21/18 09:30 White Blood Count 9.1 K/UL (4.8-10.8) # Red Blood Count 4.75 M/UL (4.70-6.10) Hemoglobin 14.6 G/DL (14.2-18.0) Hematocrit 42.9 % (42.0-52.0) Mean Corpuscular Volume 90 FL (80-99) Mean Corpuscular Hemoglobin 30.8 PG (27.0-31.0) Mean Corpuscular Hemoglobin Concent 34.1 G/DL (32.0-36.0) Red Cell Distribution Width 12.1 % (11.6-14.8) Platelet Count 430 K/UL (150-450) Mean Platelet Volume 7.2 FL (6.5-10.1) Neutrophils (%) (Auto) 80.5 % (45.0-75.0) H Lymphocytes (%) (Auto) 10.0 % (20.0-45.0) L Monocytes (%) (Auto) 6.5 % (1.0-10.0) Eosinophils (%) (Auto) 1.7 % (0.0-3.0) Basophils (%) (Auto) 1.4 % (0.0-2.0) Sodium Level 138 MMOL/L (136-145) Potassium Level 4.3 MMOL/L (3.5-5.1) Chloride Level 102 MMOL/L (98-107) Carbon Dioxide Level 29 MMOL/L (21-32) Anion Gap 7 mmol/L (5-15) Blood Urea Nitrogen 16 mg/dL (7-18) Creatinine 0.9 MG/DL (0.55-1.30) Estimat Glomerular Filtration Rate > 60 mL/min (>60) Glucose Level 181 MG/DL (74-106) H Calcium Level 9.0 MG/DL (8.5-10.1) Microbiology Date/Time Source Procedure Growth Status 01/20/18 17:20 Stool Clostridium difficile Toxin Assay - Final Complete Jayda Tompkins MD Jan 21, 2018 17:18
[2018-01-21 20:00] VITALS: BP 126/66
[2018-01-21] MEDS: Dyna-Hex 2% Top Sol 2oz TOPIC SCH (20:42)
[2018-01-21] MEDS: Iron Sucrose 100 MG in NS 55 ML IV SCH (20:43)
[2018-01-21] MEDS: FAT EMULSION 20% IV SCH (20:45)
[2018-01-21] MEDS: TPN IV SCH (20:45)
[2018-01-22] VITALS: BP 122/65
[2018-01-22] MEDS: NovoLOG Insulin Flexpen SUBQ SCH ×5 (00:02→23:59)
[2018-01-22] MEDS: Neosporin Oint Ud Pkt TOPIC SCH ×6 (00:12→20:10)
[2018-01-22 04:00] VITALS: BP 125/73
[2018-01-22] MEDS: D5 1/2NS w/KCl 20mEq 1,000 ML IV SCH (05:44)
[2018-01-22 05:55] LABS: BASOPHILS % (AUTO) 1.1 % (0.0-2.0); EOSINOPHILS % (AUTO) 3.2 % (0.0-3.0); HEMATOCRIT 36.6 % (42.0-52.0); HEMOGLOBIN 12.5 G/DL (14.2-18.0); LYMPHOCYTES % (AUTO) 12.4 % (20.0-45.0); MEAN CORPUSCULAR VOLUME 90 FL (80-99); MONOCYTES % (AUTO) 9.9 % (1.0-10.0); NEUTROPHILS % (AUTO) 73.4 % (45.0-75.0); PLATELET COUNT 347 K/UL (150-450); RED BLOOD COUNT 4.05 M/UL (4.70-6.10); RED CELL DISTRIBUTION WIDTH 11.8 % (11.6-14.8)
[2018-01-22 06:31] LABS: ANION GAP 6 mmol/L (5-15); BLOOD UREA NITROGEN 21 mg/dL (7-18); CALCIUM 8.7 MG/DL (8.5-10.1); CARBON DIOXIDE 29 MMOL/L (21-32); CHLORIDE 102 MMOL/L (98-107); CREATININE 0.9 MG/DL (0.55-1.30); POTASSIUM 4.4 MMOL/L (3.5-5.1); SODIUM 137 MMOL/L (136-145)
[2018-01-22 08:00] VITALS: BP 115/80
--- NOTE | 2018-01-22 10:11 | General Progress Note ---
Progress Note Progress Note AVSS Continued cramping abdominal pain. Abdomen soft, persistent tympanitic, incision clean urine 1590 Gastrostomy 340 BCIR 1890 WBC 8000 Hgb 12.[address] scan - post-operative changes, no clinical evidence of abscess Imp: Pouchitis/bacterial overgrowth enteritis Plan; Cipro 500mg po STAT and q12h flagyl 250mg po STAT and TID continue TPN and IV fluids f/u labs Vargas Lund MD Jan 22, 2018 10:11
[2018-01-22] MEDS ORDERED: Ascorbic Acid 500mg tab ORAL PRN (10:15)
[2018-01-22] MEDS: Ciprofloxacin 500mg tab ORAL SCH ×2 (10:32→20:09)
[2018-01-22] MEDS: metroNIDAZOLE 250mg tab ORAL SCH ×2 (10:32→17:30)
[2018-01-22 12:00] VITALS: BP 126/68
[2018-01-22] MEDS: Hyoscyamine 0.125mg tab ORAL PRN ×2 (15:30→19:32)
[2018-01-22 16:00] VITALS: BP 125/68
[2018-01-22] MEDS ORDERED: Fluconazole 100mg tab ORAL SCH (16:45)
[2018-01-22] MEDS: Nystatin Susp 500,000 units/5ml ORAL SCH ×2 (17:29→20:10)
[2018-01-22] MEDS: Dyna-Hex 2% Top Sol 2oz TOPIC SCH (19:32)
[2018-01-22] MEDS: TPN IV SCH (19:56)
[2018-01-22] MEDS: FAT EMULSION 20% IV SCH (19:56)
[2018-01-22 20:00] VITALS: BP 114/60
[2018-01-23] VITALS: BP 117/60
[2018-01-23] MEDS: Neosporin Oint Ud Pkt TOPIC SCH ×6 (00:01→21:09)
[2018-01-23 04:00] VITALS: BP 107/60
[2018-01-23 05:30] LABS: BASOPHILS % (AUTO) 1.4 % (0.0-2.0); EOSINOPHILS % (AUTO) 4.6 % (0.0-3.0); HEMATOCRIT 37.7 % (42.0-52.0); HEMOGLOBIN 12.5 G/DL (14.2-18.0); LYMPHOCYTES % (AUTO) 13.2 % (20.0-45.0); MEAN CORPUSCULAR VOLUME 91 FL (80-99); NEUTROPHILS % (AUTO) 70.8 % (45.0-75.0); PLATELET COUNT 295 K/UL (150-450); RED BLOOD COUNT 4.17 M/UL (4.70-6.10); RED CELL DISTRIBUTION WIDTH 11.9 % (11.6-14.8); WHITE BLOOD COUNT 6.8 K/UL (4.8-10.8)
[2018-01-23] MEDS: NovoLOG Insulin Flexpen SUBQ SCH ×3 (05:58→18:29)
[2018-01-23 06:11] LABS: ALANINE AMINOTRANSFERASE 30 U/L (12-78); ALBUMIN 2.4 G/DL (3.4-5.0); ALBUMIN/GLOBULIN RATIO 0.6 (1.0-2.7); ALKALINE PHOSPHATASE 66 U/L (46-116); ANION GAP 7 mmol/L (5-15); ASPARTATE AMINO TRANSFERASE 16 U/L (15-37); BILIRUBIN,TOTAL 0.3 MG/DL (0.2-1.0); BLOOD UREA NITROGEN 21 mg/dL (7-18); CALCIUM 8.6 MG/DL (8.5-10.1); CARBON DIOXIDE 28 MMOL/L (21-32); CHLORIDE 102 MMOL/L (98-107); PHOSPHORUS 4.2 MG/DL (2.5-4.9); POTASSIUM 4.3 MMOL/L (3.5-5.1); SODIUM 137 MMOL/L (136-145)
[2018-01-23 08:00] VITALS: BP 114/62
--- NOTE | 2018-01-23 08:18 | General Progress Note ---
Progress Note Progress Note AVSS Cramping much improved this AM after 1 day of Cipro + Flagyl po Abdomen soft, still tympanitic Urine 1400 Gastrostomy 440 BCIR ileo 1490 (improved re less volume) WBC 8800 Hgb 12.5 BUN 21 Cr 1.0 albumin up 2.4 Imp: Pouchitis improving Plan: clear liquid diet gastrostomy 5:1 protocol continue TPN Vargas Lund MD Jan 23, 2018 08:18
[2018-01-23] MEDS: Ciprofloxacin 500mg tab ORAL SCH ×2 (09:07→21:09)
[2018-01-23] MEDS: metroNIDAZOLE 250mg tab ORAL SCH ×3 (09:07→18:17)
[2018-01-23] MEDS: Nystatin Susp 500,000 units/5ml ORAL SCH ×4 (09:07→21:09)
[2018-01-23] MEDS: Hyoscyamine 0.125mg tab ORAL PRN ×2 (11:27→17:03)
[2018-01-23 12:00] VITALS: BP 117/63
[2018-01-23 16:00] VITALS: BP 120/63
[2018-01-23] MEDS: TPN IV SCH (19:49)
[2018-01-23] MEDS: FAT EMULSION 20% IV SCH (19:49)
[2018-01-23 20:00] VITALS: BP 114/70
[2018-01-23] MEDS: Dyna-Hex 2% Top Sol 2oz TOPIC SCH (21:09)
[2018-01-23] MEDS: D5 1/2NS w/KCl 20mEq 1,000 ML IV SCH ×2 (21:11)
[2018-01-24] VITALS: BP 111/64
[2018-01-24] MEDS: Neosporin Oint Ud Pkt TOPIC SCH ×6 (00:29→21:30)
[2018-01-24] MEDS: NovoLOG Insulin Flexpen SUBQ SCH ×4 (00:44→17:06)
[2018-01-24 04:00] VITALS: BP 117/58
[2018-01-24] MEDS: Hyoscyamine 0.125mg tab ORAL PRN (06:24)
[2018-01-24 08:00] VITALS: BP 116/64
[2018-01-24] MEDS: Ciprofloxacin 500mg tab ORAL SCH ×2 (08:30→21:32)
[2018-01-24] MEDS: metroNIDAZOLE 250mg tab ORAL SCH ×3 (08:30→17:03)
[2018-01-24] MEDS: Nystatin Susp 500,000 units/5ml ORAL SCH ×4 (08:30→21:29)
[2018-01-24] MEDS ORDERED: Phytonadione 10 mg/mL 1ml amp SUBQ SCH (09:00)
--- NOTE | 2018-01-24 09:16 | General Progress Note ---
Progress Note Progress Note AVSS Continued cramping and bloating. tolerated 600 cc clear liquids and gastrostomy 5:1 protocol Still on cipro and flagyl Abdomen mildly distended and tympanitic, 1/3 gifty removed Urine 2900 Gastrostomy 140 BCIR ileo 840 Imp. R/O persistent partial small bowel obstruction Plan: 2 view abdomen XRay now continue TPN, clear liquids only, gastrostomy 5:1 f/u labs Vargas Lund MD Jan 24, 2018 09:16
[2018-01-24 12:00] VITALS: BP 117/62
--- NOTE | 2018-01-24 12:46 | Diagnostic Imaging Report ---
Indication: Abdominal distention Technique: Supine and upright views of the abdomen Comparison: Mat Inspector image from CT scan dated 01/21/2018 Findings: Small bowel loops remain markedly dilated, perhaps more so than on the previous study, with numerous air-fluid levels. There are midline skin gifty and a pelvic ileostomy pouch. There are small calcified gallstones noted. No gross free intraperitoneal air. There is a gastrostomy tube in place Impression: Markedly dilated small bowel loops. Given described clinical history of copious small bowel output, this is most likely functional in nature related to recent surgery, although the possibility of small bowel obstruction should be considered. Recommend follow-up radiographs as clinically indicated Post surgical changes, as described
[2018-01-24 16:00] VITALS: BP 119/63
--- NOTE | 2018-01-24 18:26 | Cardiology Progress Note ---
Assessment/Plan Assessment/Plan 1. Atrial fibrillation with rapid ventricular response with history of same a number of years ago. 2. Malfunctioning ileostomy pouch, now status post revision. 3. Diabetes mellitus, new onset. 4. Intentional weight loss of 70 pounds recently. 5. History of ulcerative colitis, status post colectomy. remain borderline migue lv fucntion normal on echo on ivf still as out pt he shoudl see a boatswain's mate senior javascript engineer for fu and have a ziopatch i have discussed that with him and his walking in halls to notify staff if has any pnd or orthopnea or cp or palp or dizziness Subjective Cardiovascular: Denies: chest pain, lightheadedness, palpitations Respiratory: Denies: shortness of breath Gastrointestinal/Abdominal: Reports: constipated; Denies: abdominal pain Genitourinary: Denies: burning Objective Last 24 Hour Vital Signs Date Time Temp Pulse Resp B/P (MAP) Pulse Ox O2 Delivery O2 Flow Rate FiO2 01/24/18 16:00 98.1 59 18 119/63 (81) 100 98.1 01/24/18 12:00 98.0 53 19 117/62 (80) 100 98.0 01/24/18 09:00 Room Air 01/24/18 08:00 98.3 61 20 116/64 (81) 99 98.3 01/24/18 04:00 97.9 59 18 117/58 (77) 98 97.9 01/24/18 00:00 98.2 67 20 111/64 (80) 98 98.2 01/23/18 21:00 Room Air 01/23/18 20:00 99.0 66 19 114/70 (85) 99 99.0 General Appearance: alert Neck: supple Cardiovascular: normal rate, regular rhythm Respiratory/Chest: lungs clear Abdomen: normal bowel sounds, soft Extremities: no swelling Intake and Output 01/23/18 01/24/18 19:00 07:00 Intake Total 500 ml 1732 ml Output Total 1790 ml 2120 ml Balance -1290 ml -388 ml Intake Oral 500 ml 100 ml IV Total 1632 ml Output Urine Total 1400 ml 1500 ml Other 390 ml 620 ml # Voids 4 Vikram Monte MD Jan 24, 2018 18:26
[2018-01-24 20:00] VITALS: BP 117/62
[2018-01-24] MEDS: Dyna-Hex 2% Top Sol 2oz TOPIC SCH (21:30)
[2018-01-24] MEDS: FAT EMULSION 20% IV SCH (21:32)
[2018-01-24] MEDS: TPN IV SCH (21:32)
[2018-01-25] VITALS (7 sets, daily range): BP systolic 105–118; BP diastolic 55–65
[2018-01-25] MEDS: NovoLOG Insulin Flexpen SUBQ SCH ×4 (00:28→18:33)
[2018-01-25] MEDS: Hyoscyamine 0.125mg tab ORAL PRN (00:49)
[2018-01-25] MEDS: Neosporin Oint Ud Pkt TOPIC SCH ×6 (00:52→20:29)
[2018-01-25 05:28] LABS: ANION GAP 7 mmol/L (5-15); BLOOD UREA NITROGEN 23 mg/dL (7-18); CALCIUM 8.8 MG/DL (8.5-10.1); CARBON DIOXIDE 30 MMOL/L (21-32); CHLORIDE 102 MMOL/L (98-107); POTASSIUM 4.5 MMOL/L (3.5-5.1); SODIUM 138 MMOL/L (136-145)
[2018-01-25 05:29] LABS: BASOPHILS % (AUTO) 2.3 % (0.0-2.0); EOSINOPHILS % (AUTO) 8.4 % (0.0-3.0); HEMATOCRIT 38.1 % (42.0-52.0); HEMOGLOBIN 12.8 G/DL (14.2-18.0); LYMPHOCYTES % (AUTO) 18.7 % (20.0-45.0); MEAN CORPUSCULAR VOLUME 90 FL (80-99); MONOCYTES % (AUTO) 15.6 % (1.0-10.0); NEUTROPHILS % (AUTO) 55.1 % (45.0-75.0); PLATELET COUNT 304 K/UL (150-450); RED BLOOD COUNT 4.24 M/UL (4.70-6.10); RED CELL DISTRIBUTION WIDTH 11.8 % (11.6-14.8); WHITE BLOOD COUNT 5.1 K/UL (4.8-10.8)
--- NOTE | 2018-01-25 07:45 | Diagnostic Imaging Report ---
APPROVED REPORT CPT Code: 86176 Present Symptoms Comments: Post Op BILATERAL: Imaging reveals a patent deep venous system bilaterally. There is no evidence of thrombus within the femoral, popliteal or tibial segments. The greater saphenous veins are also within normal limits. Doppler indicates normal spontaneous flow within these segments.
[2018-01-25] MEDS: Nystatin Susp 500,000 units/5ml ORAL SCH ×4 (08:51→20:29)
--- NOTE | 2018-01-25 09:06 | General Progress Note ---
Progress Note Progress Note AVSS Having less cramping. Abdomen still mildly distended and tympanitic [place]man removed and steristrips applied Urine 3400 Gastrostomy only 165 BCIR ileo 1015 WBC 5100 hgb 12.8 BUN rising 23 Cr 1.0 Imp. Partial SBO Plan; Connect gastrostomy to medium intermittent suction instead of gravity drainage Add IV fluids to TPN D/C Chato and Vargas Carballo MD Jan 25, 2018 09:06
[2018-01-25] MEDS: D5 1/2NS w/KCl 20mEq 1,000 ML IV SCH (09:54)
[2018-01-25 20:21] LABS: APPEARANCE,URINE CLEAR; BILIRUBIN, URINE NEGATIVE (NEGATIVE); COLOR,URINE AMBER; GLUCOSE, URINE (UA) NEGATIVE (NEGATIVE); KETONES,URINE NEGATIVE (NEGATIVE); LEUKOCYTE ESTERASE ,URINE 1+ (NEGATIVE); NITRITE,URINE NEGATIVE (NEGATIVE); PH,URINE 7 (4.5-8.0); PROTEIN,URINE NEGATIVE (NEGATIVE); UROBILINOGEN,URINE NORMAL MG/DL (0.0-1.0)
[2018-01-25] MEDS: Dyna-Hex 2% Top Sol 2oz TOPIC SCH (20:29)
[2018-01-25] MEDS: FAT EMULSION 20% IV SCH (20:31)
[2018-01-25] MEDS: TPN IV SCH (20:31)
[2018-01-26] MEDS: Neosporin Oint Ud Pkt TOPIC SCH ×6 (00:15→20:54)
[2018-01-26] MEDS: Hyoscyamine 0.125mg tab ORAL PRN (02:42)
[2018-01-26] MEDS: D5 1/2NS w/KCl 20mEq 1,000 ML IV SCH ×3 (02:46→23:20)
[2018-01-26 04:00] VITALS: BP 115/64
[2018-01-26] MEDS: NovoLOG Insulin Flexpen SUBQ SCH ×4 (05:32→17:48)
--- NOTE | 2018-01-26 07:59 | General Progress Note ---
Progress Note Progress Note AVSS Has had several episodes left lower back/flank pain associated with standing and walking - sharp, localized - relieved immediately by lying down Abdomen remains mildly distended and tympanitic Urine 1550 Gastrostomy 580 BCIR ileo 390 labs all satisfactory and stable except BUN up to 23 Imp. Persistent partial small bowel obstruction post-op left flank/paraspinal back pain Plan: Needs f/u CT scan abd+pelvis with oral and IV contrast Increase IV fluids and continue TPN Vargas Lund MD Jan 26, 2018 07:59
[2018-01-26 08:00] VITALS: BP 113/61
[2018-01-26] MEDS ORDERED: HYDROmorphone 1mg/ml Carpuject SUBQ PRN (08:02)
[2018-01-26] MEDS: Nystatin Susp 500,000 units/5ml ORAL SCH ×4 (08:38→20:54)
--- NOTE | 2018-01-26 10:49 | Diagnostic Imaging Report ---
Clinical Indication: Left flank pain and persistent distention, post total colectomy and continent ileostomy Technique: Patient given oral contrast. IV administration nonionic contrast. Venous phase spiral acquisition obtained through the abdomen and pelvis. Multiplanar reconstructions were generated. Total dose length product 748.79 mGycm. CTDIvol(s) 14.12 mGy. Dose reduction achieved using automated exposure control Comparison: 01/21/2018 Findings: Again demonstrated is a continent ileostomy. Ingested contrast is seen throughout the dilated small bowel and into the ileostomy pouch. Small bowel loops nonetheless remain diffusely mildly to moderately distended, degree of distention is not significantly changed from previously. Small pelvic fluid collection above the dome of the bladder has decreased considerably in size from the prior exam, currently measures approximately 19 x 10 mm, previously 33 x 28. Previously demonstrated skin gifty of been removed. No incisional fluid collection demonstrated. No other free or loculated intraperitoneal fluid is demonstrated. There is considerable stranding of the pelvic fat again demonstrated. Prominent 11 mm lymph node located posterior to the pouch is unchanged. Previously demonstrated free intraperitoneal gas bubbles are no longer evident. Gastrostomy is again demonstrated Subcentimeter low-attenuation lesion is again demonstrated in segment 7 of the liver, and another in segment 4A. The gallbladder contains gallstones. No biliary ductal dilatation. The pancreas, spleen, adrenals, kidneys are unremarkable. No retroperitoneal or mesenteric mass or adenopathy. No pelvic mass or adenopathy. The included lung bases are clear except for some linear atelectasis on the left. Previously demonstrated pleural effusions are no longer evident. The bones demonstrate mild degenerative spondylosis changes. Impression: Persistent dilatation of small bowel loops. However, transit of contrast is not delayed, and contrast is seen within the ileostomy pouch, indicating absence of significant obstructive process. Findings are most likely functional in nature. Postsurgical changes, as described. Note significant decrease in size of previously demonstrated pelvic fluid collection Gastrostomy, also previously demonstrated Cholelithiasis, also previously reported Interim resolution of previously demonstrated postoperative pneumoperitoneum and previously demonstrated bilateral pleural effusions Subcentimeter low-attenuation lesions in the liver, too small to characterize, most likely benign simple cysts or bile hamartoma. No further follow-up necessary Incidental findings as noted, including left basilar atelectasis, mild degenerative spondylosis The CT scanner at [facility] is accredited by the [employer] and the scans are performed using protocols designed to limit radiation exposure to as low as reasonably achievable to attain images of sufficient resolution adequate for diagnostic evaluation.
[2018-01-26 12:00] VITALS: BP 112/64
[2018-01-26 16:00] VITALS: BP 110/61
[2018-01-26 19:58] VITALS: BP 127/64
[2018-01-26] MEDS: Dyna-Hex 2% Top Sol 2oz TOPIC SCH (20:54)
[2018-01-26] MEDS: TPN IV SCH (20:56)
[2018-01-26] MEDS: FAT EMULSION 20% IV SCH (20:56)
[2018-01-27] VITALS: BP 114/62
[2018-01-27] MEDS: NovoLOG Insulin Flexpen SUBQ SCH ×5 (00:18→23:22)
[2018-01-27] MEDS: Neosporin Oint Ud Pkt TOPIC SCH ×6 (01:00→20:08)
[2018-01-27 04:11] VITALS: BP 104/58
[2018-01-27] MEDS: D5 1/2NS w/KCl 20mEq 1,000 ML IV SCH ×2 (05:55→20:07)
--- NOTE | 2018-01-27 07:53 | General Progress Note ---
Progress Note Progress Note AVSS CT scan revealed dilated bowel loops but definite improvement in all findings from prior scan. He feels better. No recurrence of left lower back/ flank pain Abdomen - non-distended and non-tympanitic Urine 1974 Gastrostomy 590 BCIR ileo 1840 (including contrast) Imp. Improved - resolving partial SBO Plan: continue npo and gastrostomy to suction today continue TPN f/u labs Vargas Lund MD Jan 27, 2018 07:53
[2018-01-27 08:00] VITALS: BP 111/60
[2018-01-27] MEDS ORDERED: Norco 5mg/325mg tab ORAL PRN (08:15)
[2018-01-27] MEDS ORDERED: Fluconazole 100mg tab ORAL SCH (08:30)
[2018-01-27 12:23] VITALS: BP 107/71
[2018-01-27 15:59] VITALS: BP 125/64
[2018-01-27 20:00] VITALS: BP 113/63
[2018-01-27] MEDS: Dyna-Hex 2% Top Sol 2oz TOPIC SCH (20:07)
[2018-01-27] MEDS: FAT EMULSION 20% IV SCH (20:07)
[2018-01-27] MEDS: TPN IV SCH (20:07)
[2018-01-28] VITALS: BP 125/69
[2018-01-28] MEDS: Neosporin Oint Ud Pkt TOPIC SCH ×6 (01:00→20:19)
[2018-01-28] MEDS: NovoLOG Insulin Flexpen SUBQ SCH ×4 (06:11→23:13)
[2018-01-28] MEDS: D5 1/2NS w/KCl 20mEq 1,000 ML IV SCH ×2 (06:12→19:44)
[2018-01-28 07:11] LABS: BASOPHILS % (AUTO) 2.1 % (0.0-2.0); EOSINOPHILS % (AUTO) 5.9 % (0.0-3.0); HEMATOCRIT 36.8 % (42.0-52.0); HEMOGLOBIN 13.3 G/DL (14.2-18.0); LYMPHOCYTES % (AUTO) 15.7 % (20.0-45.0); MEAN CORPUSCULAR VOLUME 89 FL (80-99); MONOCYTES % (AUTO) 11.8 % (1.0-10.0); NEUTROPHILS % (AUTO) 64.5 % (45.0-75.0); PLATELET COUNT 195 K/UL (150-450); RED BLOOD COUNT 4.11 M/UL (4.70-6.10); RED CELL DISTRIBUTION WIDTH 11.4 % (11.6-14.8); WHITE BLOOD COUNT 4.1 K/UL (4.8-10.8)
[2018-01-28 07:21] LABS: ALANINE AMINOTRANSFERASE 29 U/L (12-78); ALBUMIN 2.7 G/DL (3.4-5.0); ALBUMIN/GLOBULIN RATIO 0.7 (1.0-2.7); ALKALINE PHOSPHATASE 89 U/L (46-116); ANION GAP 8 mmol/L (5-15); ASPARTATE AMINO TRANSFERASE 19 U/L (15-37); BILIRUBIN,TOTAL 0.4 MG/DL (0.2-1.0); BLOOD UREA NITROGEN 20 mg/dL (7-18); CALCIUM 8.7 MG/DL (8.5-10.1); CARBON DIOXIDE 27 MMOL/L (21-32); CHLORIDE 102 MMOL/L (98-107); CREATININE 0.9 MG/DL (0.55-1.30); POTASSIUM 4.5 MMOL/L (3.5-5.1); SODIUM 137 MMOL/L (136-145)
[2018-01-28 07:37] VITALS: BP 116/66
--- NOTE | 2018-01-28 10:01 | General Progress Note ---
Progress Note Progress Note AVJANINA Feels hungry today. No GI distress/cramping Abdomen soft, scaphoid, non-tympanitic Urine 2400 Gastrostomy 460 BCIR ileo 660 WBC down 4100 hgb 133 BUN down 20 Cr down 0.9 albumin up 2.7 Imp. Resolved partial SBO Plan; Clear liquid diet Gastrostomy 3:3 protocol f/u labs continue TPN Vargas Lund MD Jan 28, 2018 10:01
[2018-01-28 12:00] VITALS: BP 110/66
--- NOTE | 2018-01-28 14:39 | Cardiology Progress Note ---
Assessment/Plan Status: stable, progressing Status Narrative Mr Quinones is stable from a cardiac standpoint, with no further symptomatic arrhythmias. Bradycardic w/ metoprolol Assessment/Plan Continue present management - diet being advanced per surgery. Hold b blockers Ziopatch at discharge, for outpt arrhythmia monitoring. Subjective ROS Limited/Unobtainable: No Subjective No c/o abd pain, palpitations Objective Last 24 Hour Vital Signs Date Time Temp Pulse Resp B/P (MAP) Pulse Ox O2 Delivery O2 Flow Rate FiO2 01/28/18 12:00 98.2 63 20 110/66 (81) 98 98.2 01/28/18 09:00 Room Air 01/28/18 07:37 98.4 63 18 116/66 (83) 100 98.4 01/28/18 00:00 97.7 67 20 125/69 (87) 98 97.7 01/27/18 21:00 Room Air 01/27/18 20:00 98.1 66 19 113/63 (80) 97 98.1 01/27/18 15:59 98.4 60 19 125/64 (84) 98 98.4 General Appearance: WD/WN, alert EENT: PERRL/EOMI Neck: non-tender, no JVD Rhythm: NSR Cardiovascular: normal rate, regular rhythm Respiratory/Chest: lungs clear Abdomen: non tender, soft, other - + ileostomy. Healed surg incisions Extremities: no swelling Intake and Output 01/27/18 01/28/18 19:00 07:00 Intake Total 1362 ml 1891 ml Output Total 1700 ml 1980 ml Balance -338 ml -89 ml IV Total 1202 ml 1771 ml Other 160 ml 120 ml Output Urine Total 1000 ml 1400 ml Other 700 ml 580 ml # Voids 2 Laboratory Tests Test 01/28/18 05:35 White Blood Count 4.1 K/UL (4.8-10.8) L Red Blood Count 4.11 M/UL (4.70-6.10) L Hemoglobin 13.3 G/DL (14.2-18.0) L Hematocrit 36.8 % (42.0-52.0) L Mean Corpuscular Volume 89 FL (80-99) Mean Corpuscular Hemoglobin 32.3 PG (27.0-31.0) H Mean Corpuscular Hemoglobin Concent 36.1 G/DL (32.0-36.0) H Red Cell Distribution Width 11.4 % (11.6-14.8) L Platelet Count 195 K/UL (150-450) Mean Platelet Volume 9.2 FL (6.5-10.1) Neutrophils (%) (Auto) 64.5 % (45.0-75.0) Lymphocytes (%) (Auto) 15.7 % (20.0-45.0) L Monocytes (%) (Auto) 11.8 % (1.0-10.0) H Eosinophils (%) (Auto) 5.9 % (0.0-3.0) H Basophils (%) (Auto) 2.1 % (0.0-2.0) H Sodium Level 137 MMOL/L (136-145) Potassium Level 4.5 MMOL/L (3.5-5.1) Chloride Level 102 MMOL/L (98-107) Carbon Dioxide Level 27 MMOL/L (21-32) Anion Gap 8 mmol/L (5-15) Blood Urea Nitrogen 20 mg/dL (7-18) H Creatinine 0.9 MG/DL (0.55-1.30) Estimat Glomerular Filtration Rate > 60 mL/min (>60) Glucose Level 147 MG/DL (74-106) H Calcium Level 8.7 MG/DL (8.5-10.1) Total Bilirubin 0.4 MG/DL (0.2-1.0) Aspartate Amino Transf (AST/SGOT) 19 U/L (15-37) Alanine Aminotransferase (ALT/SGPT) 29 U/L (12-78) Alkaline Phosphatase 89 U/L (46-116) Total Protein 6.7 G/DL (6.4-8.2) Albumin 2.7 G/DL (3.4-5.0) L Globulin 4.0 g/dL Albumin/Globulin Ratio 0.7 (1.0-2.7) L Microbiology Date/Time Source Procedure Growth Status 01/25/18 20:10 Urine,Clean Catch Urine Culture - Final NO GROWTH AFTER 48 HOURS Mary Moran MD Jan 28, 2018 14:39
[2018-01-28 16:00] VITALS: BP 124/78
[2018-01-28] MEDS ORDERED: NS Irrig 1000ml ONE (17:53)
[2018-01-28 20:00] VITALS: BP 122/71
[2018-01-28] MEDS: TPN IV SCH (20:09)
[2018-01-28] MEDS: FAT EMULSION 20% IV SCH (20:09)
[2018-01-28] MEDS: Dyna-Hex 2% Top Sol 2oz TOPIC SCH (20:10)
[2018-01-29 00:01] VITALS: BP 113/69
[2018-01-29] MEDS: Neosporin Oint Ud Pkt TOPIC SCH ×6 (01:00→20:08)
[2018-01-29] MEDS: NovoLOG Insulin Flexpen SUBQ SCH ×4 (06:28→21:37)
[2018-01-29 06:30] VITALS: BP 102/56
[2018-01-29 07:15] LABS: BASOPHILS % (AUTO) 2.2 % (0.0-2.0); EOSINOPHILS % (AUTO) 9.6 % (0.0-3.0); HEMATOCRIT 35.6 % (42.0-52.0); HEMOGLOBIN 12.1 G/DL (14.2-18.0); LYMPHOCYTES % (AUTO) 18.1 % (20.0-45.0); MEAN CORPUSCULAR VOLUME 90 FL (80-99); MONOCYTES % (AUTO) 13.8 % (1.0-10.0); NEUTROPHILS % (AUTO) 56.3 % (45.0-75.0); PLATELET COUNT 195 K/UL (150-450); RED BLOOD COUNT 3.96 M/UL (4.70-6.10); RED CELL DISTRIBUTION WIDTH 11.6 % (11.6-14.8); WHITE BLOOD COUNT 4.4 K/UL (4.8-10.8)
[2018-01-29 07:36] LABS: ANION GAP 7 mmol/L (5-15); BLOOD UREA NITROGEN 20 mg/dL (7-18); CALCIUM 8.7 MG/DL (8.5-10.1); CARBON DIOXIDE 27 MMOL/L (21-32); CHLORIDE 103 MMOL/L (98-107); CREATININE 0.8 MG/DL (0.55-1.30); POTASSIUM 4.6 MMOL/L (3.5-5.1); SODIUM 136 MMOL/L (136-145)
[2018-01-29 08:00] VITALS: BP 119/65
--- NOTE | 2018-01-29 10:17 | General Progress Note ---
Progress Note Progress Note AVSS tolerated clear liquids and gastrostomy 3:3 protocol, so advanced diet and doing well. Abdomen soft, flat, not tympanitic Urine 2600 Gastrostomy 30cc/24 hours BCIR ileo 1390 WBC up 4400 Hgb 12.1 BMP-[id number] Imp. Improved with partial SBO resolved Plan: BCIR low residue diet plug gastrostomy continuously D/C TPN after current supply is infused and remove PIC line Vargas Lund MD Jan 29, 2018 10:17
[2018-01-29 12:00] VITALS: BP 113/62
[2018-01-29 16:00] VITALS: BP 106/59
--- NOTE | 2018-01-29 18:07 | Cardiology Progress Note ---
Assessment/Plan Status: stable, progressing Status Narrative Mr Quinones is stable from a cardiac standpoint, with no further symptomatic arrhythmias. He is not on antiarrhythmic agents, as became bradycardic w/ metoprolol Assessment/Plan Continue present post op management per surgery. recommend to order Ziopatch at dc for 2 wk outpt rhythm monitoring. Subjective ROS Limited/Unobtainable: No Subjective No c/o abd pain, palpitations Objective Last 24 Hour Vital Signs Date Time Temp Pulse Resp B/P (MAP) Pulse Ox O2 Delivery O2 Flow Rate FiO2 01/29/18 16:00 98.2 66 18 106/59 (75) 98 98.2 01/29/18 12:00 97.8 62 18 113/62 (79) 97 97.8 01/29/18 09:00 Room Air 01/29/18 08:00 97.9 65 20 119/65 (83) 99 97.9 01/29/18 06:30 98.2 58 18 102/56 (71) 97 98.2 01/29/18 00:01 97.6 61 18 113/69 (84) 96 97.6 01/28/18 21:00 Room Air 01/28/18 20:00 98.8 65 18 122/71 (88) 97 98.8 General Appearance: WD/WN, no apparent distress, alert EENT: PERRL/EOMI Neck: supple, no JVD Rhythm: NSR Cardiovascular: normal rate, regular rhythm, no gallop/murmur Respiratory/Chest: lungs clear, other - + colostomy Abdomen: non tender, soft Extremities: non-tender, no swelling Intake and Output 01/28/18 01/29/18 19:00 07:00 Intake Total 2711 ml 1830 ml Output Total 2320 ml 1590 ml Balance 391 ml 240 ml Intake Oral 940 ml 220 ml IV Total 1771 ml 1610 ml Output Urine Total 1500 ml 1000 ml Other 820 ml 590 ml Laboratory Tests Test 01/29/18 06:25 White Blood Count 4.4 K/UL (4.8-10.8) L Red Blood Count 3.96 M/UL (4.70-6.10) L Hemoglobin 12.1 G/DL (14.2-18.0) L Hematocrit 35.6 % (42.0-52.0) L Mean Corpuscular Volume 90 FL (80-99) Mean Corpuscular Hemoglobin 30.4 PG (27.0-31.0) Mean Corpuscular Hemoglobin Concent 33.9 G/DL (32.0-36.0) Red Cell Distribution Width 11.6 % (11.6-14.8) Platelet Count 195 K/UL (150-450) Mean Platelet Volume 8.9 FL (6.5-10.1) Neutrophils (%) (Auto) 56.3 % (45.0-75.0) Lymphocytes (%) (Auto) 18.1 % (20.0-45.0) L Monocytes (%) (Auto) 13.8 % (1.0-10.0) H Eosinophils (%) (Auto) 9.6 % (0.0-3.0) H Basophils (%) (Auto) 2.2 % (0.0-2.0) H Sodium Level 136 MMOL/L (136-145) Potassium Level 4.6 MMOL/L (3.5-5.1) Chloride Level 103 MMOL/L (98-107) Carbon Dioxide Level 27 MMOL/L (21-32) Anion Gap 7 mmol/L (5-15) Blood Urea Nitrogen 20 mg/dL (7-18) H Creatinine 0.8 MG/DL (0.55-1.30) Estimat Glomerular Filtration Rate > 60 mL/min (>60) Glucose Level 180 MG/DL (74-106) H Calcium Level 8.7 MG/DL (8.5-10.1) Mary Dominguez MD Jan 29, 2018 18:07
[2018-01-29 20:00] VITALS: BP 104/62
[2018-01-29] MEDS: Dyna-Hex 2% Top Sol 2oz TOPIC SCH (20:00)
[2018-01-30] VITALS: BP 116/54
[2018-01-30] MEDS: Neosporin Oint Ud Pkt TOPIC SCH ×7 (01:00→23:20)
[2018-01-30 06:30] VITALS: BP 105/62
[2018-01-30] MEDS: NovoLOG Insulin Flexpen SUBQ SCH ×4 (06:34→20:43)
[2018-01-30 08:00] VITALS: BP 104/59
--- NOTE | 2018-01-30 11:13 | General Progress Note ---
Progress Note Progress Note AVSS Had an episode during the night of diaphoresis and nausea -finally subsided Ate well yesterday with gastrostomy plugged until episode Abdomen soft, flat Urine 0 BCIR ileo 1860 Imp. Diaphoresis ? etiology (PIC line is out) Plan: Defer removal of gastrostomy x 24 hours f/u labs Protonix 40mg po STAT and q24 hours Maintain continuous drainage of [place] Continent Ileostomy Vargas Lund MD Jan 30, 2018 11:13
[2018-01-30 12:03] VITALS: BP 105/61
[2018-01-30 16:10] VITALS: BP 105/62
[2018-01-30 20:00] VITALS: BP 105/55
[2018-01-31] VITALS: BP 96/56
[2018-01-31 04:00] VITALS: BP 101/58
[2018-01-31] MEDS: Neosporin Oint Ud Pkt TOPIC SCH ×5 (06:21→20:57)
[2018-01-31] MEDS: NovoLOG Insulin Flexpen SUBQ SCH ×4 (06:28→20:54)
[2018-01-31 06:30] LABS: BASOPHILS % (AUTO) 1.6 % (0.0-2.0); EOSINOPHILS % (AUTO) 11.4 % (0.0-3.0); HEMATOCRIT 35.4 % (42.0-52.0); HEMOGLOBIN 12.1 G/DL (14.2-18.0); LYMPHOCYTES % (AUTO) 18.7 % (20.0-45.0); MEAN CORPUSCULAR VOLUME 90 FL (80-99); MONOCYTES % (AUTO) 10.3 % (1.0-10.0); PLATELET COUNT 228 K/UL (150-450); RED BLOOD COUNT 3.94 M/UL (4.70-6.10); RED CELL DISTRIBUTION WIDTH 11.5 % (11.6-14.8); WHITE BLOOD COUNT 4.9 K/UL (4.8-10.8)
[2018-01-31 07:03] LABS: ALANINE AMINOTRANSFERASE 80 U/L (12-78); ALBUMIN 2.6 G/DL (3.4-5.0); ALBUMIN/GLOBULIN RATIO 0.7 (1.0-2.7); ALKALINE PHOSPHATASE 92 U/L (46-116); ANION GAP 5 mmol/L (5-15); ASPARTATE AMINO TRANSFERASE 45 U/L (15-37); BILIRUBIN,TOTAL 0.3 MG/DL (0.2-1.0); BLOOD UREA NITROGEN 21 mg/dL (7-18); CALCIUM 8.9 MG/DL (8.5-10.1); CARBON DIOXIDE 28 MMOL/L (21-32); CHLORIDE 104 MMOL/L (98-107); POTASSIUM 4.4 MMOL/L (3.5-5.1); SODIUM 137 MMOL/L (136-145)
[2018-01-31 08:00] VITALS: BP 117/74
[2018-01-31] MEDS ORDERED: NS Irrig 1000ml ONE (09:07)
--- NOTE | 2018-01-31 11:35 | General Progress Note ---
Progress Note Progress Note AVSS No further episodes of nausea or diaphoresis Abdomen soft, flat. Gastrostomy removed. BCIR ileo catheter removed - reinserts readily Urine 1500 BCIR ileo 1690 WBC 4900 Hgb 12.1 albumin 2.6 Imp. Improved Plan: RN supervised Donaldson Pouch self-intubations q3h am to hs and prn continue I&O Vargas Lund MD Jan 31, 2018 11:35
[2018-01-31 12:00] VITALS: BP 115/59
--- NOTE | 2018-01-31 14:26 | Cardiology Progress Note ---
Assessment/Plan Assessment/Plan 1. Atrial fibrillation with rapid ventricular response with history of same a number of years ago. 2. Malfunctioning ileostomy pouch, now status post revision. 3. Diabetes mellitus, new onset. 4. Intentional weight loss of 70 pounds recently. 5. History of ulcerative colitis, status post colectomy. remain borderline migue lv fucntion normal on echo on ivf still as out pt he shoudl see a union carpenter manager terminal for fu and have a ziopatch i have discussed that with him and his walking in halls to notify pmd if has any pnd or orthopnea or cp or palp or dizziness Subjective Cardiovascular: Denies: chest pain, lightheadedness, palpitations Respiratory: Denies: shortness of breath Gastrointestinal/Abdominal: Denies: abdominal pain Genitourinary: Denies: burning Subjective eating Objective Last 24 Hour Vital Signs Date Time Temp Pulse Resp B/P (MAP) Pulse Ox O2 Delivery O2 Flow Rate FiO2 01/31/18 12:00 98.1 56 18 115/59 (77) 98 98.1 01/31/18 08:00 97.8 67 18 117/74 (88) 98 97.8 01/31/18 07:50 Room Air 01/31/18 04:00 97.6 54 18 101/58 (72) 97 97.6 01/31/18 00:00 97.7 57 18 96/56 (69) 98 97.7 01/30/18 21:00 Room Air 01/30/18 20:00 97.2 63 18 105/55 (72) 99 97.2 01/30/18 16:10 97.5 62 19 105/62 (76) 98 97.5 General Appearance: no apparent distress, alert Neck: supple Cardiovascular: normal rate, regular rhythm Respiratory/Chest: lungs clear Abdomen: normal bowel sounds, non tender, soft Extremities: no swelling Intake and Output 01/30/18 01/31/18 19:00 07:00 Intake Total 954 ml 600 ml Output Total 1570 ml 1620 ml Balance -616 ml -1020 ml Intake Oral 954 ml 600 ml Output Urine Total 800 ml 700 ml Other 770 ml 920 ml Laboratory Tests Test 01/31/18 06:00 White Blood Count 4.9 K/UL (4.8-10.8) Red Blood Count 3.94 M/UL (4.70-6.10) L Hemoglobin 12.1 G/DL (14.2-18.0) L Hematocrit 35.4 % (42.0-52.0) L Mean Corpuscular Volume 90 FL (80-99) Mean Corpuscular Hemoglobin 30.6 PG (27.0-31.0) Mean Corpuscular Hemoglobin Concent 34.1 G/DL (32.0-36.0) Red Cell Distribution Width 11.5 % (11.6-14.8) L Platelet Count 228 K/UL (150-450) Mean Platelet Volume 9.1 FL (6.5-10.1) Neutrophils (%) (Auto) 58.0 % (45.0-75.0) Lymphocytes (%) (Auto) 18.7 % (20.0-45.0) L Monocytes (%) (Auto) 10.3 % (1.0-10.0) H Eosinophils (%) (Auto) 11.4 % (0.0-3.0) H Basophils (%) (Auto) 1.6 % (0.0-2.0) Sodium Level 137 MMOL/L (136-145) Potassium Level 4.4 MMOL/L (3.5-5.1) Chloride Level 104 MMOL/L (98-107) Carbon Dioxide Level 28 MMOL/L (21-32) Anion Gap 5 mmol/L (5-15) Blood Urea Nitrogen 21 mg/dL (7-18) H Creatinine 1.0 MG/DL (0.55-1.30) Estimat Glomerular Filtration Rate > 60 mL/min (>60) Glucose Level 169 MG/DL (74-106) H Calcium Level 8.9 MG/DL (8.5-10.1) Total Bilirubin 0.3 MG/DL (0.2-1.0) Aspartate Amino Transf (AST/SGOT) 45 U/L (15-37) H Alanine Aminotransferase (ALT/SGPT) 80 U/L (12-78) H Alkaline Phosphatase 92 U/L (46-116) Total Protein 6.3 G/DL (6.4-8.2) L Albumin 2.6 G/DL (3.4-5.0) L Globulin 3.7 g/dL Albumin/Globulin Ratio 0.7 (1.0-2.7) L Daneshrad,Vikram S. MD Jan 31, 2018 14:26
[2018-01-31 20:00] VITALS: BP 129/67
[2018-02-01] VITALS: BP 116/63
[2018-02-01] MEDS: Neosporin Oint Ud Pkt TOPIC SCH ×2 (01:00→05:00)
[2018-02-01 04:00] VITALS: BP 124/62
[2018-02-01] MEDS: NovoLOG Insulin Flexpen SUBQ SCH (06:30)
--- NOTE | 2018-02-01 07:28 | General Progress Note ---
Progress Note Progress Note doing well with BCIR self-intubation using Rowena 30Fr catheter. Abdomen soft, AgNo3 to stoma 3:00. G-tube site healing Imp. doing well Plan: discharge full supplies/instructions/limitations provided/discussed f/u 1 week office Vargas Lund MD Feb 01, 2018 07:28
[2018-02-01 08:00] VITALS: BP 129/70
[2018-02-01] MEDS ORDERED: NS Irrig 1000ml ONE (08:09)
--- NOTE | 2018-02-02 11:29 | Discharge Summary ---
Discharge Summary Hospital Course Date of Admission Jan 10, 2018 at 08:32 Date of Discharge Feb 01, 2018 at 08:10 Admitting Diagnosis HPI HISTORY OF PRESENT ILLNESS: The patient is a 57-year-old male in overall good health with a malfunctioning Donaldson continent ileostomy with recent episodes of incontinence and difficulty intubating. The patient has a past history of ulcerative colitis and in 1987 underwent proctocolectomy with Iesha ileostomy. The patient then underwent conversion of his malfunctioning conventional ileostomy to a Donaldson continent intestinal reservoir in [place] in 1992. He did very well ever since then, intubating 4 times a day without any problems until several months ago. He developed recurring episodes of incontinence of stool that would squirt out of the stoma as well as difficulty inserting his intubation catheter. He stands up and takes 4 to 5 minutes for the catheter to enter the pouch and the pouch also leaks flatus through the stoma. He is scheduled to undergo endoscopy of his pouch in preparation for surgical revision to correct what is most likely a slipped valve. He does not have any symptoms consistent with pouchitis. He also underwent a revision of his stoma in 1993, a year after the original surgery. Consultations Vikram Monte MD Procedures 1. Procedure: Donaldson pouch endoscopy on 01/10/18 2. OPERATION PERFORMED: Laparotomy with revision of Donaldson continent intestinal reservoir slipped valve with takedown and re-maturation of stoma and catheter gastrostomy on 01/11/2018 Hospital Course Patient arrived from out of town. The patient underwent pouch endoscopy revealing a partially slipped valve. The pouch is otherwise normal. He underwent insertion of a dual lumen PICC line, intravenous hydration together with his bowel prep, continuous drainage of his Donaldson pouch with indwelling catheter, and intravenous antibiotics as well as subcutaneous heparin preoperatively. On 01/11/18, he underwent Laparotomy with revision of Donaldson continent intestinal reservoir slipped valve with takedown and re-maturation of stoma and catheter gastrostomy. He tolerated the procedure well. Post-operatively, he was placed on SERVICE VEHICLE OPERATOR morphine for pain management. I&O's were monitored. He was placed on NPO awaiting return of bowel function. He had low iron levels and was given Venofer. He was ambulating well in the hallways. He complained of feeling weird. Blood pressure was checked and heart rate was elevated. EKG was ordered and showed he was in Atrial fibrillation. He was transferred to telemetry. He was seen by yarn polishing machine operator. He was given IV beta blockers. Troponins were monitored. There was a slight increase in troponin possibly from demand. He eventually converted back to SR. There was no recurrence of A fib. He was recommended need for Ziopatch as outpatient. He was transferred back to surgical floor. He was kept NPO and TPN was started. He was started on diabetic clear liquid diet on 01/18/18. He complained of continued cramping abdominal pain relieved only by walking. STAT CT scan abd+pelvis with oral and IV contrast was ordered. CT scan showed post-operative changes, no clinical evidence of abscess Imp: Pouchitis/bacterial overgrowth enteritis He was given Cipro 500mg po STAT and q12h flagyl 250mg po STAT and TID There was less pain. Abdomen was mildly distended and tympanitic. ABd. XRay revealed multiple very dilated loops of small bowel. He was placed back on NPO Gastrostomy to continuous gravity drainage Rakesh removed and steri strips were applied. Has had several episodes left lower back/flank pain associated with standing and walking - sharp, localized - relieved immediately by lying down Abdomen remains mildly distended and tympanitic Follow-up CT scan abd+pelvis with oral and IV contrast Increase IV fluids and continue TPN CT scan revealed dilated bowel loops but definite improvement in all findings from prior scan. He feels better. No recurrence of left lower back/flank pain He had resolving partial SBO Continue NPO and gastrostomy; continue TPN On 01/28/18, he was eventluyally started on clear liquid diet. Following day, diet was advanced to BCIR diet. He had an episode of nausea and diaphoresis. He was given Protonix. There were no further episodes of nausea or diaphoresis Abdomen soft, flat. Gastrostomy removed. BCIR ileo catheter removed - reinserts readily On the day of discharge, doing well with BCIR self-intubation using Rowena 30Fr catheter. Abdomen soft, AgNo3 to stoma 3:00. G-tube site healing Imp. doing well Plan: discharge full supplies/instructions/limitations provided/discussed f/u 1 week office Patient was discharged home. PREOPERATIVE DIAGNOSES: 1. Malfunctioning Donaldson continent intestinal reservoir with incontinence and difficulty with intubation. 2. History of ulcerative colitis. 3. Status post multiple abdominal operations. 3.1. Proctocolectomy and Iesha ileostomy in 1987. 3.2. Donaldson continent intestinal reservoir, continent ileostomy in 1992. 3.3. Revision and relocation of Donaldson continent ileostomy stoma in 1993. POSTOPERATIVE DIAGNOSES: 1. Malfunctioning Donaldson continent intestinal reservoir with incontinence and difficulty with intubation. 2. History of ulcerative colitis. 3. Status post multiple abdominal operations. 3.1. Proctocolectomy and Iesha ileostomy in 1987. 3.2. Donaldson continent intestinal reservoir, continent ileostomy in 1992. 3.3. Revision and relocation of Donaldson continent ileostomy stoma in 1993. OPERATION PERFORMED: Laparotomy with revision of Donaldson continent intestinal reservoir slipped valve with takedown and re-maturation of stoma and catheter gastrostomy. --I have been assigned to complete a DC summary on this account, I was not involved with the patient management.--AMBER Apple Discharge Discharge Disposition Patient was discharged to Home () Melany Underwood NP Feb 02, 2018 11:29
--- NOTE | 2018-02-10 10:05 | Diagnostic Imaging Report ---
Indication: PREOP Technique: XRAY Chest 1v Comparison: None Findings: Heart size and mediastinal contours are within normal limits. There is no focal consolidation, pneumothorax or pleural effusion. Osseous structures demonstrate no acute abnormality. Impression: No radiographic evidence of acute cardiopulmonary disease.
== END 2018-02-01 08:10 | disposition home or self-care (01) | DRG 330 ==
LOC: SDSOVERFLO 08:32 → 3E 08:49 → 2W 01-14 09:00 → 3E 01-16 17:03
PROC: 0DJD8ZZ Inspection of Lower Intestinal Tract, Via Natural or Artificial Opening Endoscopic (ICD-10-PCS; principal; 2018-01-10 12:08)
PROC: B518ZZA Fluoroscopy of Superior Vena Cava, Guidance (ICD-10-PCS; principal; 2018-01-10 12:08)
PROC: 02HV33Z Insertion of Infusion Device into Superior Vena Cava, Percutaneous Approach (ICD-10-PCS; 2018-01-11)
PROC: 0DH63UZ Insertion of Feeding Device into Stomach, Percutaneous Approach (ICD-10-PCS; 2018-01-11)
PROC: 0DSB0ZZ Reposition Ileum, Open Approach (ICD-10-PCS; 2018-01-11)
DX: K94.13 Enterostomy malfunction (principal); K56.600 Partial intestinal obstruction, unspecified as to cause; K56.7 Ileus, unspecified; K91.850 Pouchitis; E46 Unspecified protein-calorie malnutrition; K43.5 Parastomal hernia without obstruction or gangrene; E11.9 Type 2 diabetes mellitus without complications; R15.9 Full incontinence of feces; I48.0 Paroxysmal atrial fibrillation; Z79.84 Long term (current) use of oral hypoglycemic drugs; R06.02 Shortness of breath; M54.9 Dorsalgia, unspecified; R00.1 Bradycardia, unspecified; Z68.23 Body mass index [BMI] 23.0-23.9, adult
CPT/HCPCS: 36415; 36569; 71045; 74019; 74177; 76937; 80048; 80053; 81001; 81003; 82607; 82728; 82746; 82962; 83540; 83550; 83735; 83880; 84100; 84484; 85025; 85610; 85730; 86850; 86900; 86901; 87086; 87324; 93005; 93306; 93970; 94003; 94150; J1815; J2250; J2405; J2710

== ENCOUNTER 2019-01-29 07:20 | Day surgery (SDC) | payer BC ==
--- NOTE | 2019-01-28 13:15 | Pre-op HX & Phy Repo 2 SIG ---
DATE OF ADMISSION: 01/29/2019 PRE-ENDOSCOPY HISTORY AND PHYSICAL REASON FOR ADMISSION: Scheduled to undergo endoscopy of his Donaldson continent intestinal reservoir pouch as an outpatient on January 29, 2019. HISTORY OF PRESENT ILLNESS: The patient is a 58-year-old male in overall good health, who has past history of ulcerative colitis and has undergone proctocolectomy with conventional ileostomy in 1987, followed by conversion to a Donaldson continent intestinal reservoir in 1992 in [place]. He did well for many years intubating 4 times a day and evacuating stool without any problems until early 2017, when he developed recurring episodes of forceful incontinence through the stoma and he also had difficulty inserting his intubation catheter. He underwent surgery on January 11, 2018, including laparotomy with revision of his Donaldson continent ileostomy slipped valve. He did well after surgery until November 2018, when he had some difficulty with intubating, inserting his 30-Lithuanian silicone catheter, and some incontinence. He was treated with Flagyl and Cipro without benefit and still had symptoms consistent with pouchitis. This was discontinued and he was started on cefdinir, which relieved all his cramping and excessive gurgling and reduced the frequency of needed intubations, however, he still had episodes of leaking, especially if the pouch was full. He reported no difficulty intubating in the last 2 months. He had C. difficile toxin performed, which was negative and he has occasional incontinence at this time. He is scheduled to undergo pouch endoscopy without requiring anesthesia or sedation to better determine the cause of his intermittent incontinence. PAST MEDICAL HISTORY: Operations, in addition to the above, he had deviated septum surgery in the past. MEDICATIONS: Metformin, Lopid, and Protonix. ALLERGIES: None. REVIEW OF SYSTEMS: Diagnosed as diabetic a year ago. He also has history of atrial fibrillation and cardiac ablation. PHYSICAL EXAMINATION: The patient is arriving from out of town and will be examined upon arrival and dictated separately. IMPRESSION: 1. Malfunctioning Donaldson continent intestinal reservoir with episodes of incontinence. 2. History of ulcerative colitis. 3. Diabetes, on oral agents. 4. History of atrial fibrillation, status post ablation. 5. STATUS POST MULTIPLE ABDOMINAL OPERATIONS: 5.1. Proctocolectomy and Iesha ileostomy in 1987. 5.2. Donaldson continent intestinal reservoir in 1992. 5.3. Revision and relocation of Donaldson continent ileostomy stoma in 1993. 5.4. Laparotomy with revision of Donaldson pouch slipped valve with takedown and re-maturation of stoma and temporary catheter gastrostomy on January 11, 2018. PLAN: The patient will undergo pouch endoscopy, which does not require any anesthesia or sedation. I have had a full discussion with him. He has been through this before. He understands and agrees to proceed. Vargas Lund M.D. DR: Marilee JOB#: [id number] CC:
[~2019-01-29] VITALS: Ht 182.9 cm; Wt 88.5 kg
[~2019-01-29 07:20] MED LIST: CLARITIN-D 241 EACH PO; LOPID600 MG ORAL; METFORMIN HCL850 M1 ORAL; PRILOSEC OTC20 MG ORAL
[2019-01-29 07:47] VITALS: BP 119/71
--- NOTE | 2019-01-29 07:52 | Pre-Procedure Note/Attestation ---
Pre-Procedure Note/Attestation Complete Prior to Procedure Planned Procedure: not applicable Procedure Narrative: Donaldson Continent Intestinal [place] pouch endoscopy Indications for Procedure Pre-Operative Diagnosis: malfunctioning Donaldson continent intestinal reservoir Attestation I attest that I discussed the nature of the procedure; its benefits; risks and complications; and alternatives (and the risks and benefits of such alternatives ), prior to the procedure, with the patient (or the patient's legal consumer sales representative). I attest that, if there was a reasonable possibility of needing a blood transfusion, the patient (or the patient's legal consumer sales representative) was given the [facility] standardized written summary, pursuant to the Moises Rudyard Blood Safety Act ([place] Health and Safety Code # 1645, as amended). I attest that I re-evaluated the patient just prior to the surgery and that there has been no change in the patient's H&P, except as documented below:none Vargas Lund MD Jan 29, 2019 07:52
[2019-01-29] MEDS ORDERED: FISH OIL CAP1000 MG ORAL (08:08)
[2019-01-29] MEDS ORDERED: VITAMIN B122500 MCG PO (08:08)
[2019-01-29] MEDS ORDERED: METOPROLOL SUCC50 MG ORAL (08:08)
[2019-01-29] MEDS ORDERED: BENADRYL25 MG ORAL (08:08)
[2019-01-29] MEDS ORDERED: XARELTO10 MG ORAL (08:08)
[2019-01-29] MEDS ORDERED: VITAMIN C500 M1 ORAL (08:08)
[2019-01-29] MEDS ORDERED: FLECAINIDE ACET50 MG ORAL (08:08)
[2019-01-29] MEDS ORDERED: VITAMIN D3 PO (08:08)
[2019-01-29] MEDS ORDERED: MULTI-VITAMIN1 EACH PO (08:08)
[2019-01-29 08:25] VITALS: BP 118/66
--- NOTE | 2019-01-29 10:15 | Procedure Note ---
DATE OF PROCEDURE: 01/29/2019 ENDOSCOPY PROCEDURE REPORT ENDOSCOPIST: Vargas Lund M.D. ANESTHESIA: None. SEDATION: None. PRE-ENDOSCOPY DIAGNOSES: 1. Malfunctioning Donaldson continent intestinal reservoir with episodes of incontinence. 2. History of ulcerative colitis. 3. STATUS POST MULTIPLE ABDOMINAL OPERATIONS: 3.1. Proctocolectomy and Iesha ileostomy in 1987. 3.2. Donaldson continent intestinal reservoir in 1992. 3.3. Revision and relocation of Donaldson continent ileostomy stoma in 1993. 3.4. Laparotomy with revision of Donaldson pouch slipped valve with takedown and re-maturation of stoma and temporary catheter gastrostomy on January 11, 2018. POST-ENDOSCOPY DIAGNOSES: 1. Malfunctioning Donaldson continent intestinal reservoir with episodes of incontinence. 2. History of ulcerative colitis. 3. STATUS POST MULTIPLE ABDOMINAL OPERATIONS: 3.1. Proctocolectomy and Iesha ileostomy in 1987. 3.2. Donaldson continent intestinal reservoir in 1992. 3.3. Revision and relocation of Donaldson continent ileostomy stoma in 1993. 3.4. Laparotomy with revision of Donaldson pouch slipped valve with takedown and re-maturation of stoma and temporary catheter gastrostomy on January 11, 2018. ENDOSCOPY PERFORMED: Donaldson continent ileostomy pouch endoscopy. 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 DESCRIPTION OF PROCEDURE: The patient was positioned supine in the GI lab without any anesthesia or sedation given or required. The abdomen was soft with a long midline incision and several transverse right lower quadrant scars. The stoma of the Donaldson continent ileostomy pouch is low in the right lower quadrant. There was no evidence of abdominal wall hernia. Using a GIF-P140 endoscope, the stoma was entered, mention should be made that the stoma is small, but adequate. There was extra angulation at approximately 6 cm and distance to the tip of the valve was approximately 9 cm. The pouch was distensible. Mucosa was normal. Retroflexed views revealed a circumferentially well-formed valve, which was tethered to the pouch wall with a fish-mouth deformity, which can result in incontinence with a full pouch. The patient states that if he intubates six times per day, he has no incontinence at all during the day and no difficulty intubating. He uses a 34-Turkmen Rowena catheter. Sometimes he has some stool underneath the bandage that he covers the stoma in the early childhood lead teacher after sleeping through the night. He has never had gross incontinence. Withdrawal views confirmed the above findings. I was readily able to insert a 28-Turkmen Killian catheter into the pouch and empty residual air and irrigated. The patient tolerated the endoscopy well and will be managed with observation. Surgical revision may be necessary if his symptoms of incontinence worsened. Vargas Lund M.D. DR: PERLA JOB#: [id number] CC:
== END 2019-01-29 08:40 | disposition home or self-care (01) ==
LOC: GAS 07:20
DX: K94.13 Enterostomy malfunction (principal); K51.90 Ulcerative colitis, unspecified, without complications; Z90.49 Acquired absence of other specified parts of digestive tract; E11.9 Type 2 diabetes mellitus without complications
CPT/HCPCS: 82962

== ENCOUNTER 2019-05-28 08:08 | Inpatient (IN) | payer BC ==
[~2019-05-28] VITALS: Ht 188 cm; Wt 83.9 kg
--- NOTE | 2019-05-28 03:31 | Pre-op HX & Phy Repo 2 SIG ---
DATE OF ADMISSION: 05/28/2019 SCHEDULED FOR ADMISSION: 05/28/2019. HISTORY OF PRESENT ILLNESS: The patient is a 58-year-old male, in overall good health with a malfunctioning Donaldson continent ileostomy with incontinence. The patient has a past history of ulcerative colitis and underwent proctocolectomy with Iesha ileostomy in 1987 followed by conversion to a Donaldson continent ileostomy in 1992 in [place]. He required revision and relocation of the stoma in 1993. In January 2018, the patient underwent surgery because of recurring episodes of gross incontinence through the stoma and difficulty inserting his intubation catheter. He underwent laparotomy with revision of a slipped valve with revision of the stoma as well. The patient did well following surgery. He had some difficulties with pouchitis, which resolved with cefdinir 300 mg every 12 hours oral therapy. C. difficile toxin was negative. The patient reported occasional small amount of stool in January 2019 and underwent pouch endoscopy. He was not having any difficulty intubating using a 34-Divehi Rowena catheter. Endoscopy at that time revealed a healthy pouch, but a fish-mouth deformity of the valve orifice. The patient's problem has progressed. He limits his eating to one meal a day because of the fear of incontinence of stool and gas. He intubates approximately 6 times a day to minimize the risk of incontinence. He is scheduled to undergo revision of his Donaldson continent ileostomy. PAST MEDICAL HISTORY AND MEDICATIONS: Xarelto 20 mg daily for atrial fibrillation, stop five days preoperatively on the advice of his global marketing specialist, who cleared him for the surgery, metformin 850 mg t.i.d., flecainide 100 mg b.i.d., metoprolol ER 25 mg daily, Benadryl 75 mg every night for insomnia, and takes supplements as well. REVIEW OF SYSTEMS: The patient has had cardioversion of atrial fibrillation without benefit and therefore takes flecainide as well as the Xarelto. ALLERGIES TO MEDICATIONS: None. OPERATIONS: See list at the end of this dictation. PHYSICAL EXAMINATION: The patient is arriving from out of town and will be examined upon arrival and dictated separately. IMPRESSION: 1. 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 2. History of ulcerative colitis. 3. Diabetes, on oral agents. 4. Atrial fibrillation, on flecainide and Xarelto. 5. STATUS POST MULTIPLE ABDOMINAL OPERATIONS: 5.1. Proctocolectomy and Iesha ileostomy in 1987. 5.2. Donaldson continent ileostomy in 1992. 5.3. Revision and relocation of Donaldson continent ileostomy stoma in 1993. 5.4. Laparotomy with revision of Donaldson pouch slipped valve with takedown and re-maturation of stoma and temporary catheter gastrostomy on January 11, 2018. DISCUSSION: I have had a full discussion with the patient regarding the nature of his condition, the nature of the surgery, indications, alternatives, options, and risks including bleeding, infection, injury to adjacent structures or organs, recurring difficulties with function or structure of the Donaldson pouch, etc. I will have another detailed discussion in person when the patient arrives from out of town. He will be admitted for insertion of a dual lumen PICC line, intravenous hydration during his bowel prep, and continuous drainage and decompression of his Donaldson continent ileostomy. Vargas Lund M.D. DR: REYMUNDO/SAMANTHA JOB#: [id number] CC:
[~2019-05-28 08:08] MED LIST changes: +BENADRYL25 MG ORAL; +FISH OIL CAP1000 MG ORAL; +FLECAINIDE ACET50 MG ORAL; +METOPROLOL SUCC50 MG ORAL; +MULTI-VITAMIN1 EACH PO; +VITAMIN B122500 MCG PO; +VITAMIN C500 M1 ORAL; +VITAMIN D3 PO; +XARELTO10 MG ORAL
[2019-05-28] MEDS ORDERED: Lidocaine 1% Plain 30 ml INJ PRN (08:45)
[2019-05-28] MEDS ORDERED: Heparin1,000 units/500ml Premix(Conc:2 units/ml) IV PRN (08:45)
[2019-05-28] MEDS ORDERED: Zolpidem 5mg tab ORAL PRN ×2 (08:45→12:00)
--- NOTE | 2019-05-28 09:30 | NUR ---
NURSE NOTES: Pt arrived with his , in stable condition, here for revision of BCIR. Consents signed . States he has been having difficulty intubating for a year. Routine orders in place. Medication reconciliation done, pt did not bring medication with him
[2019-05-28 09:42] LABS: BASOPHILS % (AUTO) 0.8 % (0.0-2.0); EOSINOPHILS % (AUTO) 1.8 % (0.0-3.0); HEMATOCRIT 40.8 % (42.0-52.0); HEMOGLOBIN 14.4 G/DL (14.2-18.0); LYMPHOCYTES % (AUTO) 22.1 % (20.0-45.0); MEAN CORPUSCULAR VOLUME 86 FL (80-99); MONOCYTES % (AUTO) 10.1 % (1.0-10.0); NEUTROPHILS % (AUTO) 65.3 % (45.0-75.0); PLATELET COUNT 319 K/UL (150-450); RED BLOOD COUNT 4.76 M/UL (4.70-6.10); RED CELL DISTRIBUTION WIDTH 10.5 % (11.6-14.8); WHITE BLOOD COUNT 5.7 K/UL (4.8-10.8)
--- NOTE | 2019-05-28 09:49 | NUR ---
RADIOLOGY: PCXR COMPLETED 0930 HRS. NF
[2019-05-28 09:52] LABS: ANION GAP 5 mmol/L (5-15); BLOOD UREA NITROGEN 32 mg/dL (7-18); CALCIUM 8.3 MG/DL (8.5-10.1); CARBON DIOXIDE 25 MMOL/L (21-32); CHLORIDE 103 MMOL/L (98-107); CREATININE 1.4 MG/DL (0.55-1.30); INR 0.9 (0.9-1.1); POTASSIUM 4.4 MMOL/L (3.5-5.1); SODIUM 133 MMOL/L (136-145)
--- NOTE | 2019-05-28 09:53 | Diagnostic Imaging Report ---
Indication: Dyspnea Comparison: 01/10/2018 A single view chest radiograph was obtained. Findings: Cardiomediastinal appearance is within normal limits for age. The lungs are clear. Pulmonary vascularity is appropriate. The diaphragmatic contour is smooth and costophrenic angles are sharp. No pleural effusions are identified. The bones are unremarkable. Impression: No acute findings
[2019-05-28 09:57] LABS: ALANINE AMINOTRANSFERASE 40 U/L (12-78); ALBUMIN 3.4 G/DL (3.4-5.0); ALKALINE PHOSPHATASE 60 U/L (46-116); ASPARTATE AMINO TRANSFERASE 19 U/L (15-37); BILIRUBIN,TOTAL 0.6 MG/DL (0.2-1.0)
[2019-05-28 12:00] VITALS: BP 100/69
[2019-05-28 12:19] LABS: APPEARANCE,URINE CLEAR; BILIRUBIN, URINE NEGATIVE (NEGATIVE); COLOR,URINE PALE YELLOW; GLUCOSE, URINE (UA) NEGATIVE (NEGATIVE); KETONES,URINE NEGATIVE (NEGATIVE); LEUKOCYTE ESTERASE ,URINE NEGATIVE (NEGATIVE); NITRITE,URINE NEGATIVE (NEGATIVE); PH,URINE 6 (4.5-8.0); PROTEIN,URINE NEGATIVE (NEGATIVE); UROBILINOGEN,URINE NORMAL MG/DL (0.0-1.0)
[2019-05-28] MEDS: Neomycin Sulfate 500mg Tab ORAL SCH ×3 (12:47→20:52)
--- NOTE | 2019-05-28 13:07 | Anethesia Preoperative Eval ---
Anesthesia Pre-op PMH/ROS General Date of Evaluation: May 28, 2019 Time of Evaluation: 11:09 Anesthesiologist: Cecy ASA Score: ASA 3 Mallampati Score Class I : Soft palate, uvula, fauces, pillars visible Class II: Soft palate, uvula, fauces visible Class III: Soft palate, base of uvula visible Class IV: Only hard plate visible Mallampati Classification: Class II Surgeon: Ashely Diagnosis: Malfunctioning Donaldson Continent Ileostomy Surgical Procedure: Revision Donaldson Continent Ileostomy Anesthesia History: none Family History: no anesthesia problems Allergies: Coded Allergies: NO KNOWN ALLERGIES (Verified Allergy, Unknown, 01/29/19) COPIED FROM UNCODED SECTION Medications: see eMAR Patient NPO?: Yes Past Medical History Gastrointestinal/Genitourinary: Reports: GERD, other - UC s/p colectomy PSxH Narrative: 1. 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 2. History of ulcerative colitis. 3. Diabetes, on oral agents. 4. Atrial fibrillation, on flecainide and Xarelto. 5. STATUS POST MULTIPLE ABDOMINAL OPERATIONS: 5.1. Proctocolectomy and Iesha ileostomy in 1987. 5.2. Donaldson continent ileostomy in 1992. 5.3. Revision and relocation of Donaldson continent ileostomy stoma in 1993. 5.4. Laparotomy with revision of Donaldson pouch slipped valve with takedown and re-maturation of stoma and temporary catheter gastrostomy on January 11, 2018. Anesthesia Pre-op Phys. Exam Physician Exam Last Vital Signs Date Time Temp Pulse Resp B/P (MAP) Pulse Ox O2 Delivery O2 Flow Rate FiO2 05/28/19 12:00 97.2 18 100/69 (79) 05/28/19 09:00 Room Air Constitutional: NAD Neurologic: CN 2-12 intact Cardiovascular: RRR Respiratory: CTA Gastrointestinal: S/NT/ND Airway Exam Mallampati Score: Class II MO: full ROM: limited Teeth: missing, intact Anesthesia Pre-op A/P Labs Hematology Test 05/28/19 09:20 White Blood Count 5.7 K/UL (4.8-10.8) Red Blood Count 4.76 M/UL (4.70-6.10) Hemoglobin 14.4 G/DL (14.2-18.0) Hematocrit 40.8 % (42.0-52.0) L Mean Corpuscular Volume 86 FL (80-99) Mean Corpuscular Hemoglobin 30.3 PG (27.0-31.0) Mean Corpuscular Hemoglobin Concent 35.4 G/DL (32.0-36.0) Red Cell Distribution Width 10.5 % (11.6-14.8) L Platelet Count 319 K/UL (150-450) Mean Platelet Volume 6.1 FL (6.5-10.1) L Neutrophils (%) (Auto) 65.3 % (45.0-75.0) Lymphocytes (%) (Auto) 22.1 % (20.0-45.0) Monocytes (%) (Auto) 10.1 % (1.0-10.0) H Eosinophils (%) (Auto) 1.8 % (0.0-3.0) Basophils (%) (Auto) 0.8 % (0.0-2.0) Coagulation Test 05/28/19 09:20 Prothrombin Time 10.0 SEC (9.30-11.50) Prothromb Time International Ratio 0.9 (0.9-1.1) Activated Partial Thromboplast Time 28 SEC (23-33) Chemistry Test 05/28/19 09:20 Sodium Level 133 MMOL/L (136-145) L Potassium Level 4.4 MMOL/L (3.5-5.1) Chloride Level 103 MMOL/L (98-107) Carbon Dioxide Level 25 MMOL/L (21-32) Anion Gap 5 mmol/L (5-15) Blood Urea Nitrogen 32 mg/dL (7-18) H Creatinine 1.4 MG/DL (0.55-1.30) H Estimat Glomerular Filtration Rate 52.1 mL/min (>60) Glucose Level 103 MG/DL (74-106) Calcium Level 8.3 MG/DL (8.5-10.1) L Total Bilirubin 0.6 MG/DL (0.2-1.0) Aspartate Amino Transf (AST/SGOT) 19 U/L (15-37) Alanine Aminotransferase (ALT/SGPT) 40 U/L (12-78) Alkaline Phosphatase 60 U/L (46-116) Total Protein 6.9 G/DL (6.4-8.2) Albumin 3.4 G/DL (3.4-5.0) Globulin 3.5 g/dL Albumin/Globulin Ratio 1.0 (1.0-2.7) Risk Assessment & Plan Assessment: ASA 3 Plan: GA Status Change Before Surgery: No Pre-Antibiotics Drug: Manoj Nelson MD May 28, 2019 13:07
[2019-05-28] MEDS: D5 1/2NS w/KCl 20mEq 1,000 ML IV SCH (13:12)
--- NOTE | 2019-05-28 14:10 | General Progress Note ---
Progress Note Progress Note H&P dictated. Patient has lost weight due to eating less to avoid incontinence from his Donaldson continent ileostomy Abdomen soft BUN 32 and Cr 1.4 Albumin 3.4 Imp: Malfunctioning Donaldson continent ileostomy Plan: IV hydration + prepare for surgery in AM with PICC line, bowel prep continuous drainage of Donaldson Pouch Pre-op IV antibiotics and SQ heparin Full discussion with the patient regarding the nature of his problem, surgery options and risks; all questions answered Vargas Lund MD May 28, 2019 14:10
--- NOTE | 2019-05-28 14:39 | NUR ---
NURSE NOTES: Pt returned from PICC line placement , pt is stable
--- NOTE | 2019-05-28 15:39 | NUR ---
NURSE NOTES: Obtain order for use of PICC LINE from Dr Garcia, IV fluids are running D%1/2 ns with 20 sharonda of potassium
--- NOTE | 2019-05-28 15:55 | Diagnostic Imaging Report ---
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 The left upper extremity was prepped with alcohol. All elements of maximal sterile barrier technique were followed including usage of a cap, mask, sterile gown, sterile gloves, hand hygiene and a large sterile sheet. Sonographic evaluation of the upper extremity was performed demonstrating a patent and compressible basilic vein. Access was obtained under real-time ultrasound guidance (with utilization of sterile gel and sterile probe cover) and digital image was saved and archived. An .018 wire was introduced. Needle exchanged for a 5 Armenian peel-away sheath. Measurements were obtained. A 5 Armenian dual-lumen Power PICC line catheter was cut to 42 cm and introduced over the wire. Peel-away sheath and wire were removed.Catheter was secured to the skin using 2-0 Prolene suture. Both ports aspirate and flush easily. A single fluoroscopic image shows the distal tip in the superior vena cava. Total fluoroscopic time was 64 seconds. Impression: Successful placement of an upper extremity PICC line catheter
[2019-05-28 16:00] VITALS: BP 126/69
[2019-05-28] MEDS ORDERED: D5 1/2NS w/KCl 20mEq 1,000 ML IV SCH (18:00)
--- NOTE | 2019-05-28 19:55 | NUR ---
NURSE NOTES: Recieved report from ARTIS Barron. Patient is A/A
--- NOTE | 2019-05-28 19:57 | NUR ---
NURSE NOTES: Received report from ARTIS Barron . patient in stable condition A/Ox 4 breaths even regular and unlabored on room air .Picc line inserted YASMIN, intact, patent and asymptomatic with i.v fluids denies any pain except Minor discomfort at the picc line site. No redness or swelling at picc line site , . patient with ileostomy on continuous drain by gravity, dressing intact. bed in low locked position and dai light with in reach will continue to monitor
[2019-05-28 20:00] VITALS: BP 126/65
--- NOTE | 2019-05-28 20:04 | NUR ---
NURSE NOTES: Pt ileostomy output flowed rapidly True Ileostomy Output 1350 with large amount of gas inflating drainage bag, voided multiple times. . Denied pain , n/v after meals. Tolerated meals well sates he has not ate in many days due to constant flow of stoma. Ambulated multiple times in hallway . PICC LINE FUNCTIONING WELL. Made aware that he will be NPO at midnight. Did not present any signs of anxiety related to procedure. Current plan will be followed. Consents are signed and in the chart.
--- NOTE | 2019-05-28 20:08 | NUR ---
HAND-OFF: Report given to TONYA WISDOM .
[2019-05-28] MEDS: Dyna-Hex 2% Top Sol 2oz TOPIC SCH (20:51)
[2019-05-29] VITALS (17 sets, daily range): BP systolic 104–157; BP diastolic 60–88
[2019-05-29] MEDS: Ampicillin/Sulbactam Sod 3 GM in NS 110 ML IV SCH ×4 (00:01→17:28)
[2019-05-29] MEDS: D5 1/2NS w/KCl 20mEq 1,000 ML IV SCH (00:02)
[2019-05-29 05:30] LABS: BASOPHILS % (AUTO) 0.6 % (0.0-2.0); EOSINOPHILS % (AUTO) 2.5 % (0.0-3.0); HEMATOCRIT 38.2 % (42.0-52.0); HEMOGLOBIN 13.6 G/DL (14.2-18.0); LYMPHOCYTES % (AUTO) 19.1 % (20.0-45.0); MEAN CORPUSCULAR VOLUME 86 FL (80-99); MONOCYTES % (AUTO) 11.1 % (1.0-10.0); NEUTROPHILS % (AUTO) 66.7 % (45.0-75.0); PLATELET COUNT 275 K/UL (150-450); RED BLOOD COUNT 4.44 M/UL (4.70-6.10); RED CELL DISTRIBUTION WIDTH 10.7 % (11.6-14.8); WHITE BLOOD COUNT 6.1 K/UL (4.8-10.8)
[2019-05-29] MEDS ORDERED: Heparin 5000 units/ml inj SUBQ SCH (05:30)
[2019-05-29 05:53] LABS: ALANINE AMINOTRANSFERASE 33 U/L (12-78); ALBUMIN 2.9 G/DL (3.4-5.0); ALBUMIN/GLOBULIN RATIO 0.9 (1.0-2.7); ALKALINE PHOSPHATASE 53 U/L (46-116); ANION GAP 8 mmol/L (5-15); ASPARTATE AMINO TRANSFERASE 16 U/L (15-37); BILIRUBIN,TOTAL 0.3 MG/DL (0.2-1.0); BLOOD UREA NITROGEN 19 mg/dL (7-18); CARBON DIOXIDE 25 MMOL/L (21-32); CHLORIDE 106 MMOL/L (98-107); CREATININE 1.1 MG/DL (0.55-1.30); FERRITIN 368 NG/ML (8-388); POTASSIUM 4.5 MMOL/L (3.5-5.1); SODIUM 139 MMOL/L (136-145)
[2019-05-29] MEDS ORDERED: Metoprolol Succinate XL 50mg tab ORAL SCH (06:15)
[2019-05-29 06:28] LABS: % IRON SATURATION 19 % (15-50); IRON 48 ug/dL (50-175); TOTAL IRON BINDING CAPACITY 255 ug/dL (250-450)
[2019-05-29] MEDS ORDERED: Atropine Sulfate 0.4mg/ml inj IVP PRN (06:30)
[2019-05-29] MEDS ORDERED: Labetalol 5mg/ml 20ml vial IV PRN (06:30)
[2019-05-29] MEDS ORDERED: fentaNYL 100 mcg/2 mL IV PRN (06:30)
[2019-05-29] MEDS ORDERED: LORazepam Inj 2mg/ml 1ml IV PRN (06:30)
[2019-05-29] MEDS ORDERED: Meperidine 50mg/ml Inj(FOR RIGORS ONLY) IVP PRN (06:30)
[2019-05-29] MEDS ORDERED: Ketorolac 30mg Inj IV PRN ×2 (06:30)
[2019-05-29] MEDS ORDERED: DiphenhydrAMINE 50mg/ml Inj IVP PRN ×2 (06:30→10:00)
[2019-05-29] MEDS ORDERED: HYDROcodone/Acetamin 5/325 tab ORAL PRN (06:30)
[2019-05-29] MEDS ORDERED: Midazolam 2mg/2ml Inj IVP PRN (06:30)
[2019-05-29] MEDS ORDERED: Acetaminophen (Non formulary) 100 ML IV ONE (06:30)
[2019-05-29] MEDS ORDERED: Hydromorphone 0.5mg/0.5ml inj IVP PRN (06:30)
[2019-05-29] MEDS ORDERED: Metoclopramide 10mg/2ml Inj IVP PRN (06:30)
[2019-05-29] MEDS ORDERED: oxyCODONE HCL/Acetaminophen 5/325mg ORAL PRN (06:30)
[2019-05-29] MEDS ORDERED: HYDROcodone/Acetamin 7.5/325 tab ORAL PRN (06:30)
[2019-05-29] MEDS ORDERED: LR 1000ml 1,000 ML IVLG SCH (06:30)
--- NOTE | 2019-05-29 06:32 | Immediate Post-Op Evaluation ---
Immediate Post-Op Evalulation Immediate Post-Op Evalulation Procedure: Revision Donaldson Continent Ileostomy Date of Evaluation: May 29, 2019 Time of Evaluation: 10:02 IV Fluids: 800 LR Blood Products: 0 Estimated Blood Loss: 25 Urinary Output: 250 Blood Pressure Systolic: 157 Blood Pressure Diastolic: 88 Pulse Rate: 65 Respiratory Rate: 16 O2 Sat by Pulse Oximetry: 100 Temperature (Fahrenheit): 100.4 Pain Score (1-10): 2 Nausea: No Vomiting: No Complications 0 Patient Status: awake, reacts, patent, extubated, none Hydration Status: adequate Given Within 1 Hr of Incision: Yes Manoj Sam MD May 29, 2019 06:32
[2019-05-29] MEDS ORDERED: Rocuronium Bromide 50mg/5ml Inj IV ONE (06:48)
[2019-05-29] MEDS ORDERED: Dexamethasone 4mg/ml vial ONE (06:54)
[2019-05-29] MEDS ORDERED: Lidocaine 1% Plain 30 ml INJ ONE ×2 (06:54→09:14)
[2019-05-29] MEDS ORDERED: Lidocaine 1% MPF 10mg/ml 5ml ONE (06:54)
[2019-05-29] MEDS ORDERED: Sodium Chloride 10ml vial INJ ONE (06:54)
--- NOTE | 2019-05-29 06:55 | NUR ---
NURSE NOTES: Pt taken down to O.R. for surgery. Pt in stable condition, no distress noted.
[2019-05-29] MEDS ORDERED: fentaNYL 100 mcg/2 mL IV ONE ×2 (07:01→08:29)
[2019-05-29] MEDS ORDERED: NeoSporin Gu Irrig 1ml Amp IRRIG ONE (07:17)
[2019-05-29] MEDS ORDERED: Bacitracin 50000 Units Vial ONE (07:17)
--- NOTE | 2019-05-29 07:22 | NUR ---
NURSE NOTES: PT IN SURGERY.
--- NOTE | 2019-05-29 07:24 | Pre-Procedure Note/Attestation ---
Pre-Procedure Note/Attestation Complete Prior to Procedure Planned Procedure: not applicable Procedure Narrative: revision of Donaldson continent ileostomy, possible gastrostomy Indications for Procedure Pre-Operative Diagnosis: malfunctioning Donaldson Continent Ileostomy Attestation I attest that I discussed the nature of the procedure; its benefits; risks and complications; and alternatives (and the risks and benefits of such alternatives ), prior to the procedure, with the patient (or the patient's legal agricultural sales representative). I attest that, if there was a reasonable possibility of needing a blood transfusion, the patient (or the patient's legal agricultural sales representative) was given the [facility] standardized written summary, pursuant to the [place] Blood Safety Act ([place] Health and Safety Code # 1645, as amended). I attest that I re-evaluated the patient just prior to the surgery and that there has been no change in the patient's H&P, except as documented below: none Vargas Lund MD May 29, 2019 07:23
[2019-05-29] MEDS ORDERED: NS Irrig 1000ml ONE (07:30)
[2019-05-29] MEDS ORDERED: LR 1000ml ONE (07:30)
[2019-05-29] MEDS ORDERED: Propofol 1,000mg/ 100ml btl IV ONE (07:30)
[2019-05-29] MEDS ORDERED: Sterile Water Irrig 1000ml IRRIG ONE (07:30)
--- NOTE | 2019-05-29 07:31 | NUR ---
HAND-OFF: Report given to ARTIS Frye
[2019-05-29] MEDS ORDERED: Glycopyrrolate 0.2mg/ml 1ml Vial ONE (09:20)
[2019-05-29] MEDS ORDERED: Neostigmine 1mg/ml 10ml Inj ONE (09:20)
--- NOTE | 2019-05-29 09:38 | NUR ---
RD ASSESSMENT & RECOMMENDATIONS SEE CARE ACTIVITY FOR COMPLETE ASSESSMENT DAILY ESTIMATED NEEDS: Needs based on Surgery 84.5kg 25-30 kcals/kg 7606-8933 total kcals 1-2 g protein/kg 85-169 g total protein 25-30 mL/kg 1855-4168 total fluid mLs NUTRITION DIAGNOSIS: Altered GI fxn r/t malfunctioning ileo as evidenced by pt w/ h/o UC, now w/ pending BCIR revision, TPN ordered for anticipated prolonged NPO / ileus status. PARENTERAL NUTRITION RECOMMENDATIONS: D/AA Rate: 85 IL Rate: 12 Total Rate: 97 Volume: 2328 % Dextrose: 17 % AA: 5.4 Energy (kcals/kg): 2196 Protein (g/kg protein): 110 Nonprotein KCALS: 1755 GIR (mg CHO/kg/min): 2.9 % Fat KCALS: 26 NCP: N Ratio: 100:1 TPN Comment: - Start D17% + AA 5.4% @85ml/hr w/ IL 20% @12ml/hr- all 3:1. - Starting rate per MD, goal rate of 97ml/hr, 2328ml/day. - At goal TPN meets 100% est needs, 26 kcal/kg, 1.3g pro /kg - IL <30% - GIR<5 - NPC 100:1 ADDITIONAL RECOMMENDATIONS: * Obtain a standing weight as medically able * W/ TPN, monitor LYTES, BG, LFT's * H/o DM, rec insulin w/ TPN; monitor need for long acting .
[2019-05-29] MEDS ORDERED: Naloxone 0.4mg/ml Inj IVP PRN (10:00)
[2019-05-29] MEDS ORDERED: PCA Education Pamphlet MISC ONE (10:00)
[2019-05-29] MEDS ORDERED: Rate Change PCA 1 Each MISC PRN (10:00)
[2019-05-29] MEDS ORDERED: LORazepam 1mg tab SL PRN (10:00)
--- NOTE | 2019-05-29 10:00 | Brief Operative Note ---
Immediate Post Operative Note Operative Note Pre-op Diagnosis: malfunctioning Donaldson Continent Ileostomy Procedure: revision of Donaldson continent ileostomy valve Post-op Diagnosis: same Post-op Diagnosis: same as pre-op Findings: consistent w/pre-op dx studies Surgeon: denise Aeronautical Project Engineer: kedar Anesthesiologist: dani Anesthesia: general Specimen: none Complications: none Condition: stable Fluids: see anesthesia record Estimated Blood Loss: minimal Drains: other - 28 Killian to Donaldson Pouch Implant(s) used?: No Vargas Lund MD May 29, 2019 10:00
--- NOTE | 2019-05-29 10:01 | General Progress Note ---
Progress Note Progress Note AM labs pre-op: BUN down 19 Cr down 1.1 Albumin down 2.9 Iron 48 Plan: Venofer TPN post-op Vargas Lund MD May 29, 2019 10:01
--- NOTE | 2019-05-29 10:22 | NUR ---
*-* INSURANCE ALL AVAILABLE CLINICALS HAVE BEEN FAXED TO: [facility] # [id number] MICHELLE HOFFMANN NO PH#FOR SHUN PLS FAX CLINICALS TO [phone] PER BREANNE REP [phone]
[2019-05-29] MEDS: PCA Morphine 1mg/ml 30 ML IV PRN ×2 (10:45→17:06)
--- NOTE | 2019-05-29 11:00 | NUR ---
NURSE NOTES: REC'D FROM PACU SP REVISION OF BCIR. AWAKE/ALERT.V/S TAKEN. PAIN SCALE 5/IO. WITH SUPERVISOR FUNCTIONAL TESTING MORPHINE. INSTRUCTED TO PUSH PAIN BUTTON NEEDED FOR PAIN. FC PATENT AND DRAINING YELLOW URINE. ILEOSTOMY TO DRANAGE BAG, DRAINING REDDISH OUTPUT. IN NO ACUTE DISTRESS.
[2019-05-29] MEDS: 1/2NS w/KCl 20mEq 1000ml 1,000 ML IV SCH ×3 (12:07→20:20)
[2019-05-29] MEDS ORDERED: Cathflo Alteplase 2mg Inj INJ ONE (12:30)
--- NOTE | 2019-05-29 12:30 | NUR ---
NURSE NOTES: TRIED AND ABLE TO FLUSH PICC LINE RED PORT, NO NEED FOR CATHFLO.
[2019-05-29] MEDS ORDERED: Albuterol ud Inhalation HHN PRN (14:45)
--- NOTE | 2019-05-29 15:45 | Operative Note - Dictated ---
DATE OF OPERATION: 05/29/2019 SURGEON: Vargas Lund M.D. BATTERY ASSEMBLER: Otto Juan M.D. ANESTHESIOLOGIST: Manoj Sam M.D. TYPE OF ANESTHESIA: General endotracheal. PREOPERATIVE DIAGNOSES: 1. Malfunctioning Donaldson continent ileostomy. 2. History of ulcerative colitis. 3. Status post multiple abdominal operations. 3.1. Proctocolectomy and Iesha ileostomy in 1987. 3.2. Donaldson continent ileostomy in 1992. 3.3. Revision and relocation of Donaldson continent ileostomy stoma in 1993. 3.4. Laparotomy with revision of Donaldson pouch slipped valve with takedown and re-maturation of stoma and temporary catheter gastrostomy in January of 2018. POSTOPERATIVE DIAGNOSES: 1. Malfunctioning Donaldson continent ileostomy. 2. History of ulcerative colitis. 3. Status post multiple abdominal operations. 3.1. Proctocolectomy and Iesha ileostomy in 1987. 3.2. Donaldson continent ileostomy in 1992. 3.3. Revision and relocation of Donaldson continent ileostomy stoma in 1993. 3.4. Laparotomy with revision of Donaldson pouch slipped valve with takedown and re-maturation of stoma and temporary catheter gastrostomy in January of 2018. OPERATION PERFORMED: Laparotomy with revision of Donaldson continent ileostomy nipple valve. DESCRIPTION OF PROCEDURE: The patient was taken to the operating room and under general endotracheal anesthesia with sequential compression device stockings and Killian catheter in place and having received preoperative intravenous antibiotics and subcutaneous heparin, the patient was prepped and draped in the usual fashion with the stoma low in the right lower quadrant initially covered with a Tegaderm. Previous midline incision was reopened from just above the umbilicus to the pubis. There were diffuse adhesions to the anterior abdominal wall and throughout the abdomen. These were taken down and hemostasis achieved with cautery. A 28-English Killian catheter was placed through the stoma into the pouch to help facilitate dissection. The pouch extended deep into the pelvis and had a known capacity of approximately 800 mL. The catheter was manipulated into the pouch and the afferent bowel identified. The afferent bowel was manually occluded and the pouch was distended with 700 mL of saline. There was obvious incontinence around the catheter and when the catheter was removed, there was significant incontinence. The catheter was reintroduced and the pouch decompressed. The pouch was densely adherent into the deep pelvis into the bladder, but there was enough pouch wall available without fully mobilizing it out of the pelvis. Between stay sutures of 3-0 silk, a pouch enterotomy was created. The catheter brought through and the nipple valve grasped with Jeff clamps and measured 6 cm in length. The orifice was somewhat patulous, but there was no attachment to the opposite side of the pouch wall. Using the linear stapler 60 green cartridge, 2 rows of gifty were placed on the valve to stabilize it avoiding the mesentery. The Killian catheter was able to be introduced readily into the pouch. The pouch enterotomy was closed with continuous 2-0 chromic full-thickness locking suture imbricated with 3-0 silk. Now, the afferent bowel was again manually occluded and the pouch distended with 700 mL of saline. Upon removing the catheter, there was no incontinence. The catheter was reintroduced and the pouch decompressed. The catheter was positioned well into the pouch and sutured to the skin with two sutures of 2-0 silk. It was then flushed and connected to gravity drainage bag. In view of all the adhesions, I felt extending the operation to do a temporary catheter gastrostomy was not indicated. The field was irrigated and protected throughout with antibiotic soaked laps and the field was irrigated and hemostasis carefully achieved. The incision was closed in one layer with continuous #1 looped PDS. Additional antibiotic irrigation utilized and the skin closed with gifty. Dry sterile dressings were applied. Final sponge and needle counts were correct. The ileostomy pouch catheter was flushed and connected to gravity drainage bag. The patient tolerated the procedure well and left the operating room in good condition. Vargas Lund M.D. DR: KRISTOPHER JOB#: [id number] CC:
--- NOTE | 2019-05-29 16:24 | NUR ---
CASE MANAGEMENT: INITIAL REVIEW 58 YR OLD MALE HERE FOR ELECTIVE SURGERY SI: MALFUNCTIONING MORA CONTINENT ILEOSTOMY WITH INCONTINENCE 97.2 54 18 100/69 99% ON RA HCT 40.8 NA+133 BUN 32 CREAT 1.4 IS: REVISION OF MORA CONTINENT ILEOSTOMY VALVE PLAN: IV HYDRATION CXRAY PICC LINE CASE MANAGEMENT: REVIEW 05/29/19 SI: MALFUNCTIONING MORA CONTINENT ILEOSTOMY WITH INCONTINENCE 97.5 55 18 115/64 98% ON RA CA+ 8.0 FE 48 IS: REVISION OF MORA CONTINENT ILEOSTOMY VALVE IN SURGERY NOW DCP: RETURN HOME WHEN MEDICALLY STABLE
[2019-05-29] MEDS ORDERED: NovoLOG Insulin Flexpen SUBQ SCH (18:00)
--- NOTE | 2019-05-29 19:00 | NUR ---
NURSE NOTES: NO SIGNIFICANT ACUTE DISTRESS,
--- NOTE | 2019-05-29 19:10 | NUR ---
NURSE NOTES: Received report from RN HOLA . patient in stable condition s/p surgery A/Ox 4 breaths even regular and unlabored on oxygen via NC at 3 L/min .Picc line on YASMIN is intact, patent and asymptomatic with i.v fluids and EXTRUDER OPERATOR HELPER, denies any pain Patient ileostomy is on continuous drain by gravity, dressing intact and dry, montana catheter in place . bed in low locked position and dai light with in reach will continue to monitor
[2019-05-29] MEDS: PCA shift volume MISC SCH (19:26)
--- NOTE | 2019-05-29 19:26 | NUR ---
HAND-OFF: Report given to flo truong rn.
[2019-05-29] MEDS: Dyna-Hex 2% Top Sol 2oz TOPIC SCH (20:00)
[2019-05-29] MEDS ORDERED: D5 1/2NS w/KCl 20mEq 1,000 ML IV SCH (20:00)
[2019-05-29] MEDS ORDERED: Dextrose 10% 1,000 ML IV PRN (20:00)
[2019-05-29] MEDS: TPN IV SCH (20:21)
[2019-05-29] MEDS: Iron Sucrose 100 MG in NS 55 ML IVPB SCH (20:21)
[2019-05-29] MEDS: FAT EMULSION 20% IV SCH (20:21)
[2019-05-29] MEDS ORDERED: Fat Emulsion Iv 20% 250 ML IV SCH (21:00)
[2019-05-30] VITALS (8 sets, daily range): BP systolic 90–129; BP diastolic 60–66
[2019-05-30] MEDS: NovoLOG Insulin Flexpen SUBQ SCH ×5 (00:02→23:55)
[2019-05-30] MEDS: Ampicillin/Sulbactam Sod 3 GM in NS 110 ML IV SCH ×5 (00:07→23:54)
[2019-05-30 06:22] LABS: HEMATOCRIT 37.4 % (42.0-52.0); HEMOGLOBIN 13.1 G/DL (14.2-18.0); MEAN CORPUSCULAR VOLUME 89 FL (80-99); PLATELET COUNT 265 K/UL (150-450); RED BLOOD COUNT 4.21 M/UL (4.70-6.10); RED CELL DISTRIBUTION WIDTH 10.9 % (11.6-14.8); WHITE BLOOD COUNT 17.5 K/UL (4.8-10.8)
[2019-05-30] MEDS: PCA shift volume MISC SCH ×2 (07:00→19:16)
[2019-05-30 07:12] LABS: ALANINE AMINOTRANSFERASE 27 U/L (12-78); ALBUMIN 2.6 G/DL (3.4-5.0); ALBUMIN/GLOBULIN RATIO 0.8 (1.0-2.7); ALKALINE PHOSPHATASE 47 U/L (46-116); ANION GAP 9 mmol/L (5-15); ASPARTATE AMINO TRANSFERASE 14 U/L (15-37); BILIRUBIN,TOTAL 0.2 MG/DL (0.2-1.0); BLOOD UREA NITROGEN 22 mg/dL (7-18); CALCIUM 7.5 MG/DL (8.5-10.1); CARBON DIOXIDE 25 MMOL/L (21-32); CHLORIDE 105 MMOL/L (98-107); CREATININE 1.2 MG/DL (0.55-1.30); PHOSPHORUS 1.8 MG/DL (2.5-4.9); POTASSIUM 4.8 MMOL/L (3.5-5.1); SODIUM 139 MMOL/L (136-145)
--- NOTE | 2019-05-30 07:45 | NUR ---
HAND-OFF: Report given to ARTIS Roberts. Pt in stable condition.
--- NOTE | 2019-05-30 07:45 | 48 Hour Post Anesthesia Eval ---
Post Anesthesia Evaluation Procedure: Revision Donaldson Continent Ileostomy Date of Evaluation: May 30, 2019 Time of Evaluation: 06:35 Blood Pressure Systolic: 90 0: 62 Pulse Rate: 82 Respiratory Rate: 18 Temperature (Fahrenheit): 97.4 O2 Sat by Pulse Oximetry: 99 Airway: patent Nausea: No Vomiting: No Pain Intensity: 2 Hydration Status: adequate Cardiopulmonary Status: Stable Mental Status/LOC: patient returned to baseline Follow-up Care/Observations: 0 Post-Anesthesia Complications: 0 Follow-up care needed: N/A Manoj Sam MD May 30, 2019 07:45
--- NOTE | 2019-05-30 08:00 | NUR ---
NURSE NOTES: Received report from Remigio Clemente pt a/a/o x4 laying in bed with no signs of distress or other issues at this time pt stated that pain has been controlled with DIESEL CRANE OPERATOR. surgical dressing dry and intact. PICC line on the left upper arm running D5 1/2 NS+20mEq@30ml/hr. and TPN@97ml/hr. DIESEL CRANE OPERATOR in place with morphine with continues dosage. ileostomy draining to gravity with some strikes of blood. total night time nanny out put: -30ml. Killian cath in place draining to gravity total urine during night time nanny:825ml. last accucheck: 227, 6 units given. pt was able to walk around the unit with the use of a FWW and staff assistance. dai light within reach, bed in lowest position. side rales up x2. I will f/u as needed.
[2019-05-30] MEDS: Metoprolol Succinate XL 50mg tab ORAL SCH (08:19)
--- NOTE | 2019-05-30 10:50 | NUR ---
*-* INSURANCE ALL AVAILABLE CLINICALS HAVE BEEN FAXED TO: [facility] # [id number] MICHELLE HOFFMANN NO PH#FOR HSUN PLS FAX CLINICALS TO [phone] PER BREANNE REP [phone]
--- NOTE | 2019-05-30 13:16 | CDS Physician Query ---
Clarification is required for compliance, coding accuracy, and to reflect severity of illness for this patient Dear Dr. Vargas Lund Date: 05/30/2019 Certified Composites Technician/CDS Name: Dominique Deyr Clinical Documentation states: HNP: 58-year-old male, in overall good health with a malfunctioning Donaldson continent ileostomy with incontinence...Atrial fibrillation, on flecainide and Xarelto. Kindly specify the type of atrial fibrillation: PHYSICIAN RESPONSE: [] Chronic atrial fibrillation [] Persistent atrial fibrillation [] Permanent atrial fibrillation [] Paroxysmal atrial fibrillation [] Other Present on Admission: [] Yes [] No [] Clinically Undetermined Physician signature Date Please also document in your Progress Notes and/or Discharge Summary and indicate if the condition was present on admission. LAMONTD
[2019-05-30] MEDS: PCA Morphine 1mg/ml 30 ML IV PRN (15:09)
--- NOTE | 2019-05-30 15:41 | General Progress Note ---
Progress Note Progress Note AVSS comfortable with MS PILE DRIVER OPERATOR Has been ambulating Chest clear Cor reg rhythm Abdomen soft, incision clean Urine 12 hrs overnight: 825 BCIR ileo 60 serosang WBC 17,500 hgb 13.1 Phos low 1.8 albumin 2.6 Imp. Ileus Plan: npo, TPN, Venofer, continue montana f/u labs Vargas Lund MD May 30, 2019 15:40
[2019-05-30] MEDS ORDERED: Rate Change PCA 1 Each MISC PRN (15:45)
--- NOTE | 2019-05-30 15:50 | NUR ---
CASE MANAGEMENT: REVIEW 05/30/19 SI: POD#1 REVISION OF MORA CONTINENT ILEOSTOMY VALVE 97.8 65 20 117/66 98% ON RA WBC 17.5 BG 212 CA+ 7.5 PHOS 1.8 IS: IV TPN Q24HR IVF NS @30ML/HR IV UNASYN Q6HR IV FE SUCROSE QHS X5 BAGS TOPROL XL PO QD TAMBOCOR PO BID NOVOLOG SQ Q6HR PLAN: NPO ON TPN CONT PATEL CATH F/U LABS
[2019-05-30] MEDS ORDERED: PCA Morphine 1mg/ml 30 ML IV PRN (16:00)
[2019-05-30] MEDS ORDERED: DiphenhydrAMINE 50mg/ml Inj IVP PRN (16:00)
[2019-05-30] MEDS ORDERED: Naloxone 0.4mg/ml Inj IVP PRN (16:00)
[2019-05-30] MEDS ORDERED: NS 500ML ONE (16:19)
[2019-05-30] MEDS ORDERED: NS Irrig 1000ml ONE (16:19)
[2019-05-30] MEDS ORDERED: Tubing IV Secondary IV ONE (16:19)
[2019-05-30] MEDS ORDERED: Potassium Phosphate 30 MM in NS 275 ML IV ONE (17:00)
--- NOTE | 2019-05-30 19:22 | NUR ---
HAND-OFF: Report given to Amber WISDOM, pt in stable condition. - during my shift pt was able to ambulate around the unit x3 with steady gait and the use of FWW. Total I&O's Ileostomy: 50-80= -30ml urine (Killian cath): 1175ml
--- NOTE | 2019-05-30 19:26 | NUR ---
NURSE NOTES: Received report & pt from ARTIS Roberts. Pt in bed, a&ox4, in room air, family member at bedside. No s/s of acute distress & c/o 4/10 pain at this time. JUNIOR DESIGNER setting checked. Ileo & montana cath intact & draining to gravity PICC line intact with IVF & TPN running as ordered. Surgical dressing C/D/I. Bed in lowest position, JUNIOR DESIGNER pump & call light within reach. Will continue to monitor.
[2019-05-30] MEDS: 1/2NS w/KCl 20mEq 1000ml 1,000 ML IV SCH (19:47)
[2019-05-30] MEDS: TPN IV SCH (19:47)
[2019-05-30] MEDS: Dyna-Hex 2% Top Sol 2oz TOPIC SCH (19:47)
[2019-05-30] MEDS: FAT EMULSION 20% IV SCH (19:47)
[2019-05-30] MEDS: Iron Sucrose 100 MG in NS 55 ML IVPB SCH (20:05)
[2019-05-31] VITALS (7 sets, daily range): BP systolic 107–137; BP diastolic 61–77
[2019-05-31] MEDS: Ampicillin/Sulbactam Sod 3 GM in NS 110 ML IV SCH ×4 (05:07→23:57)
[2019-05-31] MEDS: NovoLOG Insulin Flexpen SUBQ SCH ×3 (05:18→17:45)
--- NOTE | 2019-05-31 06:23 | NUR ---
NURSE NOTES: Pt ambulating in hallway with assist. Steady gait, in no distress.
[2019-05-31 06:55] LABS: BASOPHILS % (AUTO) 0.5 % (0.0-2.0); EOSINOPHILS % (AUTO) 1.5 % (0.0-3.0); HEMATOCRIT 36.6 % (42.0-52.0); HEMOGLOBIN 12.8 G/DL (14.2-18.0); LYMPHOCYTES % (AUTO) 7.9 % (20.0-45.0); MEAN CORPUSCULAR VOLUME 89 FL (80-99); MONOCYTES % (AUTO) 9.1 % (1.0-10.0); PLATELET COUNT 224 K/UL (150-450); RED BLOOD COUNT 4.12 M/UL (4.70-6.10); RED CELL DISTRIBUTION WIDTH 11.2 % (11.6-14.8); WHITE BLOOD COUNT 9.5 K/UL (4.8-10.8)
[2019-05-31] MEDS: PCA shift volume MISC SCH ×2 (07:06→19:17)
[2019-05-31 07:07] LABS: ALANINE AMINOTRANSFERASE 22 U/L (12-78); ALBUMIN 2.4 G/DL (3.4-5.0); ALBUMIN/GLOBULIN RATIO 0.7 (1.0-2.7); ALKALINE PHOSPHATASE 47 U/L (46-116); ANION GAP 7 mmol/L (5-15); ASPARTATE AMINO TRANSFERASE 13 U/L (15-37); BILIRUBIN,TOTAL 0.2 MG/DL (0.2-1.0); BLOOD UREA NITROGEN 21 mg/dL (7-18); CALCIUM 7.8 MG/DL (8.5-10.1); CARBON DIOXIDE 29 MMOL/L (21-32); CHLORIDE 108 MMOL/L (98-107); PHOSPHORUS 2.8 MG/DL (2.5-4.9); POTASSIUM 3.9 MMOL/L (3.5-5.1); SODIUM 144 MMOL/L (136-145)
--- NOTE | 2019-05-31 07:15 | NUR ---
HAND-OFF: Report given to ARTIS Roberts. Pt in stable condition.
--- NOTE | 2019-05-31 08:00 | NUR ---
NURSE NOTES: Received report from Amber WISDOM, pt a/a/o x4 laying in bed with no signs of distress or other issues at this time. surgical dressing dry and intact. ileostomy draining to gravity, total awake overnight counselor output: -55. Killian cath draining to gravity, total awake overnight counselor output: 975ml. PICC line left upper arm running D51/2NS +20mEq@30ml/hr and TPN@97ml/hr. SUPERVISOR FABRICATION on morphine. call light within reach, bed in lowest position. side rales up x2. I will f/u as needed. - pt ambulating around the unit with steady gait.
[2019-05-31] MEDS: Metoprolol Succinate XL 50mg tab ORAL SCH (09:04)
[2019-05-31] MEDS ORDERED: Naloxone 0.4mg/ml Inj IVP PRN (09:17)
--- NOTE | 2019-05-31 09:18 | General Progress Note ---
Progress Note Progress Note AVSS Doing well and ambulating Abdomen soft, distended, incision clean Urine 2150 BCIR ileo scant serosang WBC down 9500 Hgb 12.8 BUN 21 Cr down 1.0 Phos 2.8 after infusion Imp: Ileus Plan: d/c basal infusion of HIDE TRIMMER continue demand dosing TPN, npo f/u labs Vargas Lund MD May 31, 2019 09:18
[2019-05-31] MEDS ORDERED: Rate Change PCA 1 Each MISC PRN (09:30)
[2019-05-31] MEDS ORDERED: DiphenhydrAMINE 50mg/ml Inj IVP PRN (10:00)
[2019-05-31] MEDS ORDERED: Potassium Phosphate 20 MM in NS 275 ML IV SCH (10:00)
[2019-05-31] MEDS ORDERED: Tubing IV Secondary IV ONE (15:20)
[2019-05-31] MEDS ORDERED: NS Irrig 1000ml ONE (15:20)
[2019-05-31] MEDS ORDERED: PCA Morphine 1mg/ml 30 ML IV PRN (16:00)
--- NOTE | 2019-05-31 19:30 | NUR ---
NURSE NOTES: Receive a report from ARTIS Roberts. Pt is awake and alert. Breathing is even and non labored. No acute distress noted. Abdominal pain is tolerate with E LEARNING SPECIALIST pump, 3-4/10. On TPN and fluid is running via PICC on YASMIN. PICC site is clear without infiltration. Yellowish urine is patent via montana catheter. Ileostomy is inserted state with NS 20ml flushing q 2hrs. Surgery site dressing kept dry and clean. Call light within reach. Will continue to monitor.
[2019-05-31] MEDS: 1/2NS w/KCl 20mEq 1000ml 1,000 ML IV SCH (20:00)
--- NOTE | 2019-05-31 20:10 | NUR ---
HAND-OFF: Report given to Papa WISDOM, pt in stable condition. - during my shift pt was able to ambulate around the unit with steady gait. total I&O's Ileostomy: 25-80=-55ml (pink/clear output) urine (Killian cath)= 1000ml oral intake (ice chips)= 60ml
[2019-05-31] MEDS: Iron Sucrose 100 MG in NS 55 ML IVPB SCH (20:43)
[2019-05-31] MEDS: FAT EMULSION 20% IV SCH (20:44)
[2019-05-31] MEDS: TPN IV SCH (20:44)
[2019-05-31] MEDS: Dyna-Hex 2% Top Sol 2oz TOPIC SCH (20:44)
--- NOTE | 2019-05-31 21:00 | NUR ---
NURSE NOTES: Reinforce to use I/S q every hour while awake and reeducate how to use it. Complains for ARAUZ. Pt has been NPO except ice chips and medication. Provide Tylenol 325mg 2t. Will continue to monitor.
--- NOTE | 2019-05-31 21:30 | NUR ---
NURSE NOTES: Noted itching sense without rash after Venofer IV. Administer Benadryl 25mg IVP. Will continue to monitor.
[2019-06-01] VITALS (7 sets, daily range): BP systolic 119–145; BP diastolic 71–80
[2019-06-01] MEDS: NovoLOG Insulin Flexpen SUBQ SCH ×4 (00:10→17:40)
--- NOTE | 2019-06-01 04:30 | NUR ---
NURSE NOTES: Pt is awake and alert. Denies any pain. Pt states that he can get up without pushing TECHNICAL SPECIALIST CYTOGENETICS pump this morning. Ambulates unit three circles with accompanying with staff member. Done self expectoration after getting up and practice I/S. Shown well compliances of regimes. No shown drainage via ileostomy. Will continue to monitor.
[2019-06-01] MEDS: Ampicillin/Sulbactam Sod 3 GM in NS 110 ML IV SCH ×4 (05:32→23:59)
--- NOTE | 2019-06-01 06:00 | NUR ---
NURSE NOTES: Denies pain. Pt states that he feels bubbles on ileostomy site like before surgery. No leaking noted on dressing site. flushing is done. Will continue to monitor. 12 hrs output Urine: 1275ml Ileostomy: 30ml-80ml(flushing)=-50ml
[2019-06-01] MEDS: 1/2NS w/KCl 20mEq 1000ml 1,000 ML IV SCH (06:04)
[2019-06-01 06:29] LABS: BASOPHILS % (AUTO) 0.9 % (0.0-2.0); EOSINOPHILS % (AUTO) 3.6 % (0.0-3.0); HEMATOCRIT 36.4 % (42.0-52.0); HEMOGLOBIN 12.6 G/DL (14.2-18.0); LYMPHOCYTES % (AUTO) 10.6 % (20.0-45.0); MEAN CORPUSCULAR VOLUME 90 FL (80-99); MONOCYTES % (AUTO) 9.9 % (1.0-10.0); PLATELET COUNT 213 K/UL (150-450); RED BLOOD COUNT 4.07 M/UL (4.70-6.10); RED CELL DISTRIBUTION WIDTH 11.3 % (11.6-14.8); WHITE BLOOD COUNT 8.8 K/UL (4.8-10.8)
[2019-06-01] MEDS: PCA shift volume MISC SCH ×2 (07:00→19:12)
[2019-06-01 07:01] LABS: ALANINE AMINOTRANSFERASE 28 U/L (12-78); ALBUMIN 2.2 G/DL (3.4-5.0); ALBUMIN/GLOBULIN RATIO 0.6 (1.0-2.7); ALKALINE PHOSPHATASE 50 U/L (46-116); ANION GAP 6 mmol/L (5-15); ASPARTATE AMINO TRANSFERASE 20 U/L (15-37); BILIRUBIN,TOTAL 0.4 MG/DL (0.2-1.0); BLOOD UREA NITROGEN 17 mg/dL (7-18); CALCIUM 7.9 MG/DL (8.5-10.1); CARBON DIOXIDE 32 MMOL/L (21-32); CHLORIDE 107 MMOL/L (98-107); PHOSPHORUS 3.5 MG/DL (2.5-4.9); POTASSIUM 3.8 MMOL/L (3.5-5.1); SODIUM 145 MMOL/L (136-145)
--- NOTE | 2019-06-01 07:30 | NUR ---
HAND-OFF: Report given to ARTIS Vega. Round is done. While pt was ambulating the hallway, greenish drainage started to drain via ileostomy.
--- NOTE | 2019-06-01 07:35 | NUR ---
NURSE NOTES: Patient lying in bed awake. No complain of pain or distress at this time. On ENAMEL BUFFER for pain management. Surgical dressing intact and dry. PICC line dressing intact and dry. Ileostomy and Killian catheter patent and draining well. Bed lowest position. Call light within reach. Will continue to monitor.
[2019-06-01] MEDS: Metoprolol Succinate XL 50mg tab ORAL SCH (08:25)
--- NOTE | 2019-06-01 09:13 | NUR ---
*-* INSURANCE ALL AVAILABLE CLINICALS HAVE BEEN FAXED TO: [facility] # [id number] MICHELLE HOFFMANN NO PH#FOR SHUN PLS FAX CLINICALS TO [phone] PER BREANNE REP [phone]
--- NOTE | 2019-06-01 10:04 | NUR ---
RD ASSESSMENT & RECOMMENDATIONS SEE CARE ACTIVITY FOR COMPLETE ASSESSMENT DAILY ESTIMATED NEEDS: Needs based on Surgery 84.5kg 25-30 kcals/kg 9422-0186 total kcals 1-2 g protein/kg 85-169 g total protein 25-30 mL/kg 1854-2583 total fluid mLs NUTRITION DIAGNOSIS: Altered GI fxn r/t malfunctioning ileo as evidenced by pt w/ h/o UC, s/p BCIR revision, on TPN for anticipated prolonged NPO/ ileus status. CURRENT DIET:NPO PO DIET RECOMMENDATIONS: DIET PER MD PARENTERAL NUTRITION RECOMMENDATIONS: D/AA Rate: 85 IL Rate: 12 Total Rate: 97 Volume: 2328 % Dextrose: 17 % AA: 5.4 Energy (kcals/kg): 2196 Protein (g/kg protein): 110 Nonprotein KCALS: 1755 GIR (mg CHO/kg/min): 2.9 % Fat KCALS: 26 NCP: N Ratio: 100:1 TPN Comment: - Maintain D17% + AA 5.4% @85ml/hr w/ IL 20% @12ml/hr- all 3:1. - At goal TPN meets 100% est needs, 26 kcal/kg, 1.3g pro/kg - IL <30% - GIR<5 - NPC 100:1 ADDITIONAL RECOMMENDATIONS: * Obtain a standing weight as medically able * W/ TPN, monitor LYTES, BG, LFT's * Monitor BGs closely, need for insulin in TPN and/or long acting insulin .
--- NOTE | 2019-06-01 10:12 | NUR ---
CASE MANAGEMENT: REVIEW 05/31/19 SI: POD#2 REVISION OF MORA CONTINENT ILEOSTOMY VALVE 98.2 71 18 129/77 94% ON RA CA+ 7.8 H/H 12.8/36.6 BUN 21 BG 141 IS: IV TPN Q24HR IVF NS @30ML/HR IV UNASYN Q6HR IV FE SUCROSE QHS X5 BAGS TOPROL XL PO QD TAMBOCOR PO BID NOVOLOG SQ Q6HR PLAN: NPO ON TPN CONT PATEL CATH F/U LABS CASE MANAGEMENT: REVIEW 06/01/19 SI: POD#3 REVISION OF MORA CONTINENT ILEOSTOMY VALVE 98.6 61 21 135/72 96% ON RA CA+ 7.9 MG 1.5 BG 147 H/H 12.6/36.4 IS: IV TPN Q24HR IV PRECISION CROP MANAGER BID IVF NS @30ML/HR IV FLAGYL Q6HR IV UNASYN Q6HR IV FE SUCROSE QHS X5 BAGS TOPROL XL PO QD TAMBOCOR PO BID NOVOLOG SQ Q6HR PLAN: NPO ON TPN CONT PATEL CATH F/U LABS DC PRECISION CROP MANAGER
[2019-06-01] MEDS ORDERED: Rate Change PCA 1 Each MISC PRN (11:00)
[2019-06-01] MEDS ORDERED: Naloxone 0.4mg/ml Inj IVP PRN (11:01)
--- NOTE | 2019-06-01 11:12 | General Progress Note ---
Progress Note Progress Note AVSS Abdomen is distended and tympanitic, incision clean. Had no BCIR ileo output until early this AM large volume of stool via indwelling catheter, and some stool and gas around the catheter Urine 2275 BCIR ileo nil until this AM labs stable except Mg 1.5 Imp: Ileus Plan: NPO, continue TPN Mg infusions Vargas Lund MD Jun 01, 2019 11:12
--- NOTE | 2019-06-01 15:15 | NUR ---
HAND-OFF: Report given to Armando WISDOM. Patient in stable condition.
[2019-06-01] MEDS ORDERED: NS Irrig 1000ml ONE (15:28)
[2019-06-01] MEDS ORDERED: NS 500ML ONE (15:28)
--- NOTE | 2019-06-01 15:45 | NUR ---
NURSE NOTES: Received report from Gary WISDOM. pt in stable condition. pt able to walk around the unit with steady gait. ileostomy draining well. Killian cath in place. PICC line running TPN@97ml/hr. D51/2NS+20mEq@30ml/hr. at bedside. call light within reach, bed in lowest position. side rales up x2. I will f/u as needed.
[2019-06-01] MEDS ORDERED: DiphenhydrAMINE 50mg/ml Inj IVP PRN (16:00)
[2019-06-01] MEDS ORDERED: PCA Morphine 1mg/ml 30 ML IV PRN (16:00)
--- NOTE | 2019-06-01 19:31 | NUR ---
NURSE NOTES: Received report & pt from ARTIS Roberts. Pt in bed, a&ox4, in room air, family member at bedside. No s/s of acute distress & c/o 3/10 pain at this time. CLINICAL SUPERVISOR setting checked. Ileo & [place] cath intact & draining to gravity. PICC line intact with IVF & TPN running as ordered. Surgical dressing C/D/I. Bed in lowest position, CLINICAL SUPERVISOR pump & call light within reach. Will continue to monitor.
--- NOTE | 2019-06-01 20:02 | NUR ---
HAND-OFF: Report given to Amber WISDOM, pt in stable condition. - during my shift pt ambulating around the unit multiple times with steady gait. Total I&O's ileostomy: 1350-80= 1270ml Urine: 1450ml intake: NPO x ice chips and meds
[2019-06-01] MEDS: Dyna-Hex 2% Top Sol 2oz TOPIC SCH (20:21)
[2019-06-01] MEDS: FAT EMULSION 20% IV SCH (20:22)
[2019-06-01] MEDS: TPN IV SCH (20:22)
[2019-06-01] MEDS: Iron Sucrose 100 MG in NS 55 ML IVPB SCH (20:23)
[2019-06-02] VITALS: BP 130/66
[2019-06-02 04:00] VITALS: BP 138/70
--- NOTE | 2019-06-02 05:07 | NUR ---
NURSE NOTES: Pt ambulating in hallway with assist. Steady gait, in no distress.
[2019-06-02] MEDS: Ampicillin/Sulbactam Sod 3 GM in NS 110 ML IV SCH ×3 (05:16→19:38)
[2019-06-02] MEDS: NovoLOG Insulin Flexpen SUBQ SCH ×4 (05:17→18:32)
[2019-06-02 05:22] LABS: BASOPHILS % (AUTO) 1.3 % (0.0-2.0); EOSINOPHILS % (AUTO) 5.5 % (0.0-3.0); HEMATOCRIT 35.5 % (42.0-52.0); HEMOGLOBIN 12.4 G/DL (14.2-18.0); LYMPHOCYTES % (AUTO) 14.2 % (20.0-45.0); MEAN CORPUSCULAR VOLUME 87 FL (80-99); MONOCYTES % (AUTO) 11.2 % (1.0-10.0); PLATELET COUNT 233 K/UL (150-450); RED BLOOD COUNT 4.07 M/UL (4.70-6.10)
[2019-06-02 05:31] LABS: ALANINE AMINOTRANSFERASE 44 U/L (12-78); ALBUMIN 2.1 G/DL (3.4-5.0); ALBUMIN/GLOBULIN RATIO 0.6 (1.0-2.7); ALKALINE PHOSPHATASE 55 U/L (46-116); ANION GAP 6 mmol/L (5-15); ASPARTATE AMINO TRANSFERASE 28 U/L (15-37); BILIRUBIN,TOTAL 0.4 MG/DL (0.2-1.0); BLOOD UREA NITROGEN 17 mg/dL (7-18); CALCIUM 7.9 MG/DL (8.5-10.1); CARBON DIOXIDE 32 MMOL/L (21-32); CHLORIDE 106 MMOL/L (98-107); CREATININE 1.1 MG/DL (0.55-1.30); POTASSIUM 3.8 MMOL/L (3.5-5.1); SODIUM 144 MMOL/L (136-145)
[2019-06-02] MEDS: PCA shift volume MISC SCH ×2 (07:00→19:00)
--- NOTE | 2019-06-02 07:30 | NUR ---
HAND-OFF: Report given to ARTIS Barron. Rounds done.
--- NOTE | 2019-06-02 07:42 | NUR ---
NURSE NOTES: Pt in hallway ambulating with has completed 3 full lapse around nurses station. Gait is steady,without body guarding, smiling as he greeted rfp writer, no facial grimace of pain. Current plan to include, I&O monitoring, q3 or flush , and pain management.
[2019-06-02 08:00] VITALS: BP_SYST 129; BP_DIAS 71; BP_DIAS 89
[2019-06-02] MEDS: Metoprolol Succinate XL 50mg tab ORAL SCH (09:22)
[2019-06-02] MEDS ORDERED: Tubing IV Secondary IV ONE (09:45)
[2019-06-02] MEDS ORDERED: NS Irrig 1000ml ONE (09:45)
--- NOTE | 2019-06-02 09:49 | NUR ---
NURSE NOTES: Stated he wanted to ambulate f/c emptied for comfort, urinary output 350 dark kasandra, no odor. Denies pain , nausea , or vomiting at this time
[2019-06-02] MEDS ORDERED: Naloxone 0.4mg/ml Inj IVP PRN (09:53)
[2019-06-02] MEDS ORDERED: Rate Change PCA 1 Each MISC PRN (10:00)
[2019-06-02] MEDS ORDERED: DiphenhydrAMINE 50mg/ml Inj IVP PRN (10:00)
--- NOTE | 2019-06-02 10:03 | NUR ---
NURSE NOTES: Plan of care to continue without change. F/C to remain in place an additional day. Stated that when he urinates, " it takes a long time for me to finish" Dr Lund aware. Verbalized concerns with cramping and turning sensation to abdomen. Dr Lund gave orders for Simethicone. Bandaged changed, presence of abdominal distention, surrounding skin around gifty are not inflamed, nor have presence of discharge.
--- NOTE | 2019-06-02 10:05 | General Progress Note ---
Progress Note Progress Note AVSS doing well but abdomen remains distended and tympanitic despite good BCIR ileo output Incision clean Urine 2324 BCIR ileo 2140 Labs stable except Mg 1.6 Imp. Ileus Plan: continue npo, TPN, Killian, IV antibiotics Mg infusion Vargas Lund MD Jun 02, 2019 10:05
[2019-06-02 12:00] VITALS: BP 151/79
--- NOTE | 2019-06-02 13:32 | NUR ---
NURSE NOTES: Call Taker spoke to pharmacy in regards to antibiotics and magnesium, stated they could not be ran together . TPN in one one lumen, double lumen
[2019-06-02 16:00] VITALS: BP_SYST 139; BP_SYST 148; BP_DIAS 71; BP_DIAS 72
[2019-06-02] MEDS ORDERED: PCA Morphine 1mg/ml 30 ML IV PRN (16:00)
--- NOTE | 2019-06-02 18:00 | NUR ---
NURSE NOTES: Pt ambulated multiple times. Did require to be flushed with 40cc at 1500 and 1800, minimal output possibly related to position. Foot of bed elevated by pt, I like my legs high. Instructed pt to turn on right side ileostomy output began running down fast . No odor , dark brown in color thin gel like consistency, . Pt given Simethicone for complaints of gas pain, . Will endorse to oncoming nurse that pharmacy stated to give antibiotics and magnesium at the same time last bag almost complete.
[2019-06-02] MEDS: Simethicone 80mg tab ORAL PRN (18:26)
[2019-06-02 20:00] VITALS: BP 134/68
[2019-06-02] MEDS: Dyna-Hex 2% Top Sol 2oz TOPIC SCH (20:09)
[2019-06-02] MEDS: Iron Sucrose 100 MG in NS 55 ML IVPB SCH (20:09)
[2019-06-02] MEDS: FAT EMULSION 20% IV SCH (20:10)
[2019-06-02] MEDS: TPN IV SCH (20:10)
[2019-06-02] MEDS: 1/2NS w/KCl 20mEq 1000ml 1,000 ML IV SCH (20:11)
--- NOTE | 2019-06-02 20:15 | NUR ---
HAND-OFF: Report given to Sho RN made aware of q3 flushing and directions to increase flush if needed. Pt ambualted multiple times, Did not verbalize complaints of nausea Urine Output 1100 f/c to be d/c tomorrow Ileostomy output 850 True Ileostomy Output 730 Endorsed to give Benadryl prior to Venofer dose 2 to complaints of itching Gauze around stoma changed
--- NOTE | 2019-06-02 22:08 | NUR ---
NURSE NOTE: Pt is A/Ox4 with stable VS. Orders reviewed and physical assessment completed. Pt denies any pain at this time. Ileo is draining to Killian bag, greenish/brown output. Dressing is clean, dry, and intact. Killian is intact and secured. Call rosenberg is within reach. Will continue to follow plan of care. Will continue to monitor.
[2019-06-03] VITALS (7 sets, daily range): BP systolic 133–154; BP diastolic 72–81
[2019-06-03] MEDS: Ampicillin/Sulbactam Sod 3 GM in NS 110 ML IV SCH ×2 (00:48→05:49)
[2019-06-03] MEDS: NovoLOG Insulin Flexpen SUBQ SCH ×4 (00:49→17:07)
[2019-06-03] MEDS: Simethicone 80mg tab ORAL PRN ×2 (02:57→17:01)
[2019-06-03 05:40] LABS: EOSINOPHILS % (AUTO) 7.5 % (0.0-3.0); HEMATOCRIT 35.4 % (42.0-52.0); HEMOGLOBIN 12.3 G/DL (14.2-18.0); LYMPHOCYTES % (AUTO) 14.3 % (20.0-45.0); MEAN CORPUSCULAR VOLUME 89 FL (80-99); MONOCYTES % (AUTO) 12.1 % (1.0-10.0); NEUTROPHILS % (AUTO) 65.1 % (45.0-75.0); PLATELET COUNT 213 K/UL (150-450); RED BLOOD COUNT 3.99 M/UL (4.70-6.10); RED CELL DISTRIBUTION WIDTH 10.8 % (11.6-14.8); WHITE BLOOD COUNT 6.6 K/UL (4.8-10.8)
[2019-06-03 05:49] LABS: ALANINE AMINOTRANSFERASE 37 U/L (12-78); ALBUMIN 2.1 G/DL (3.4-5.0); ALBUMIN/GLOBULIN RATIO 0.6 (1.0-2.7); ALKALINE PHOSPHATASE 49 U/L (46-116); ANION GAP 6 mmol/L (5-15); ASPARTATE AMINO TRANSFERASE 20 U/L (15-37); BILIRUBIN,TOTAL 0.4 MG/DL (0.2-1.0); BLOOD UREA NITROGEN 17 mg/dL (7-18); CARBON DIOXIDE 32 MMOL/L (21-32); CHLORIDE 105 MMOL/L (98-107); POTASSIUM 3.4 MMOL/L (3.5-5.1); SODIUM 143 MMOL/L (136-145)
[2019-06-03] MEDS: PCA shift volume MISC SCH (07:23)
--- NOTE | 2019-06-03 07:26 | NUR ---
HAND-OFF: Report given to
--- NOTE | 2019-06-03 07:30 | NUR ---
NURSE NOTES: Received report from ARTIS Berkowitz. Rounding done with outgoing nurse. Pt a/o x 4, in bed. YASMIN PICC line is patent. is at bedside. Ileostomy bag is patent. Bed in lowest position, call light within reach. Will continue to monitor.
--- NOTE | 2019-06-03 08:25 | NUR ---
HAND-OFF: Report given to ARTIS Kim.
[2019-06-03] MEDS: Metoprolol Succinate XL 50mg tab ORAL SCH (09:24)
[2019-06-03] MEDS ORDERED: Tamsulosin 0.4mg cap ORAL SCH (09:45)
--- NOTE | 2019-06-03 09:50 | General Progress Note ---
Progress Note Progress Note AVSS Still with abdominal distention and mild cramping. Incision clean Urine 2100 BCIR ileo 1095 K 3.4 Mg 1.7 albumin 2.1 Imp: Ileus Plan: d/c urinary Killian flomax 0.4 mg po daily based on pre-admission urinary symptoms d/c Unasyn and flagyl continue NPO and TPN until distention resolved Vargas Lund MD Jun 03, 2019 09:50
--- NOTE | 2019-06-03 10:00 | NUR ---
NURSE NOTES: REHAB DEPARTMENT MANAGER syringe contains 30ml morphine sent to lab.
[2019-06-03] MEDS: D5 1/2NS w/KCl 40meq 1000ml 1,000 ML IV SCH (10:03)
--- NOTE | 2019-06-03 10:54 | NUR ---
NURSE NOTES: Received t from RENATA UNDERWOOD at 0900. pt is alert and orient x4. pt is in ra, NO SOB or acute respiratory distress noted. pt has PCC YASMIN is iv fluid and TPN is running well. pt has ileostomy in place, care done as order. Dr Lund visited t, he changed dressing and he s aware about K, MG and other lab results. is on bed side. t took shower and tolerate well. all neds attended, bed is locked and is in the lowest position. call light within easy rech. will continue to monitor.
--- NOTE | 2019-06-03 11:28 | NUR ---
CASE MANAGEMENT: REVIEW 06/02/2019 SI: POD#4 REVISION OF MORA CONTINENT ILEOSTOMY VALVE T 98.5 HR 57 RR 17 B/P 134/68 SATS 95% ON RA GLU 194 CA 7.9 MG 1.6 IS: IV TPN Q24HR IV ENERGY RATER BID IVF NS @30ML/HR IV FLAGYL Q6HR IV UNASYN Q6HR TOPROL XL PO QD TAMBOCOR PO BID NOVOLOG SQ Q6HR MED/SURG 06/03/2019 SI: POD#5 REVISION OF MORA CONTINENT ILEOSTOMY VALVE T 97.9 HR 61 RR 18 B/P 136/74 SATS 96% ON RA K 3.4 GLU 174 CA 8 MG 1.7 IS: IV TPN Q24HR IV ENERGY RATER BID IVF NS @30ML/HR IV FLAGYL Q6HR IV UNASYN Q6HR TOPROL XL PO QD TAMBOCOR PO BID NOVOLOG SQ Q6HR MED/SURG PLAN OF CARE: D/c urinary Killian continue NPO and TPN until distention resolved
--- NOTE | 2019-06-03 19:22 | NUR ---
HAND-OFF: Report given to ARTIS GARY. Pt is awake and stable.
[2019-06-03] MEDS: Dyna-Hex 2% Top Sol 2oz TOPIC SCH (20:33)
[2019-06-03] MEDS: FAT EMULSION 20% IV SCH (20:34)
[2019-06-03] MEDS: TPN IV SCH (20:34)
[2019-06-04 00:15] VITALS: BP 125/72
[2019-06-04] MEDS: NovoLOG Insulin Flexpen SUBQ SCH ×4 (00:20→18:38)
[2019-06-04 04:00] VITALS: BP 133/70
--- NOTE | 2019-06-04 04:28 | NUR ---
NURSE NOTE: Pt is A/Ox4 with stable VS. Orders reviewed and physical assessment completed. Pt denies any pain. Ileo catheter is intact and is draining to Killian bag, greenish/brown output. Abdominal dressing is clean, dry, and intact. Pt ambulated in the hallway x1 multiple laps. Dr. Lund paged overnight to obtain PO Benadryl for insomnia. Will continue to monitor.
[2019-06-04 06:19] LABS: BASOPHILS % (AUTO) 0.9 % (0.0-2.0); HEMOGLOBIN 12.3 G/DL (14.2-18.0); LYMPHOCYTES % (AUTO) 17.4 % (20.0-45.0); MEAN CORPUSCULAR VOLUME 88 FL (80-99); MONOCYTES % (AUTO) 11.7 % (1.0-10.0); PLATELET COUNT 219 K/UL (150-450); RED BLOOD COUNT 4.07 M/UL (4.70-6.10); WHITE BLOOD COUNT 5.9 K/UL (4.8-10.8)
--- NOTE | 2019-06-04 06:34 | NUR ---
NURSE NOTE: PICC line dressing change completed at 0545. Maroon discoloration surrounding the site, otherwise the site is asymptomatic.
[2019-06-04 06:38] LABS: ALANINE AMINOTRANSFERASE 35 U/L (12-78); ALBUMIN 2.2 G/DL (3.4-5.0); ALBUMIN/GLOBULIN RATIO 0.6 (1.0-2.7); ALKALINE PHOSPHATASE 49 U/L (46-116); ANION GAP 5 mmol/L (5-15); ASPARTATE AMINO TRANSFERASE 19 U/L (15-37); BILIRUBIN,TOTAL 0.4 MG/DL (0.2-1.0); BLOOD UREA NITROGEN 17 mg/dL (7-18); CALCIUM 7.9 MG/DL (8.5-10.1); CARBON DIOXIDE 32 MMOL/L (21-32); CHLORIDE 104 MMOL/L (98-107); PHOSPHORUS 3.4 MG/DL (2.5-4.9); POTASSIUM 3.4 MMOL/L (3.5-5.1); SODIUM 141 MMOL/L (136-145)
--- NOTE | 2019-06-04 07:29 | NUR ---
NURSE NOTES: Upon arrival to unit at 0650 pt seen walking gait strong and steady. Denies pain or discomfort at this time. Plan of care will continue to include monitoring of I&O , pain management , assessment for bowel discomfort, as well as monitoring urine flow. From previous report urine stream is slow. Recently started on Flomax. Current plan will be followed
[2019-06-04 08:00] VITALS: BP 145/80
[2019-06-04] MEDS: Tamsulosin 0.4mg cap ORAL SCH (09:51)
[2019-06-04] MEDS: Metoprolol Succinate XL 50mg tab ORAL SCH (09:51)
[2019-06-04] MEDS: D5 1/2NS w/KCl 40meq 1000ml 1,000 ML IV SCH ×3 (09:52→20:41)
--- NOTE | 2019-06-04 10:36 | General Progress Note ---
Progress Note Progress Note AVSS Feels less bloated. Mild scrotal swelling right side (vas was adherent to Donaldson pouch in surgery) Abdomen mildly distended, soft, incision clean Urine 2135 voiding well with flomax BCIR ileo 690 K 3.4 Mg 1.5 other labs stable Imp. slowly resolving ileus Plan: continue NPO, TPN, Venofer Mg infusions f/u labs The patient has a past history of recurrent atrial fibrillation pre-admission, controlled with meds. He takes Xarelto prophylactically although he is not in afib chronically. Will resume Xarelto when tolerating oral intake Vargas Lund MD Jun 04, 2019 10:36
--- NOTE | 2019-06-04 10:58 | NUR ---
RADIOLOGY: BERENICE [id number] HRS. NF
--- NOTE | 2019-06-04 11:51 | Diagnostic Imaging Report ---
Indication: Abdominal pain Comparison: 01/24/2018 Single view of the abdomen obtained Findings: Dilated loops of small bowel demonstrated within the abdomen. Overall this appears better when compared to a remote exam from the prior occasion from 01/24/2019. There are skin gifty indicating recent surgery. IMPRESSION: Dilated small bowel seen postoperatively. Correlate clinically. Bowel obstruction is not excluded no recent studies available.
[2019-06-04 12:00] VITALS: BP 145/80
--- NOTE | 2019-06-04 13:06 | NUR ---
RD ASSESSMENT & RECOMMENDATIONS SEE CARE ACTIVITY FOR COMPLETE ASSESSMENT DAILY ESTIMATED NEEDS: Needs based on Surgery 84.5kg 25-30 kcals/kg 5387-5340 total kcals 1-2 g protein/kg 85-169 g total protein 25-30 mL/kg 8389-7801 total fluid mLs NUTRITION DIAGNOSIS: Altered GI fxn r/t malfunctioning ileo as evidenced by pt w/ h/o UC, s/p BCIR revision, on TPN, NPO w/ ileus status. PO DIET RECOMMENDATIONS: DIET PER PARENTERAL NUTRITION RECOMMENDATIONS: D/AA Rate: 85 IL Rate: 12 Total Rate: 97 Volume: 2328 % Dextrose: 17 % AA: 5.4 Energy (kcals/kg): 2196 Protein (g/kg protein): 110 Nonprotein KCALS: 1755 GIR (mg CHO/kg/min): 2.9 % Fat KCALS: 26 NCP: N Ratio: 100:1 TPN Comment: - Maintain D17% + AA 5.4% @85ml/hr w/ IL 20% @12ml/hr- all 3:1. - At goal TPN meets 100% est needs, 26 kcal/kg, 1.3g pro/kg - IL <30% - GIR<5 - NPC 100:1 ----- ADDITIONAL RECOMMENDATIONS: * Obtain a standing weight as medically able * W/ TPN, monitor LYTES, BG, LFT's * Monitor BGs closely, need for D5 formulary adjustment .
--- NOTE | 2019-06-04 15:00 | NUR ---
NURSE NOTES: Walking in hallway , very active, no reports of discomfort at this time. No complication during ileostomy flushing, has not made any concerns related to urination
--- NOTE | 2019-06-04 15:15 | NUR ---
CASE MANAGEMENT: REVIEW 06/04/2019 SI: POD#6 REVISION OF MORA CONTINENT ILEOSTOMY VALVE 97.8 72 16 145/80 97% ON RA K 3.4 GLU 154 CA 7.9 MG 1.6 H/H 12. IS: IV MG SULFATE X4 BAGS IV TPN Q24HR IV ELECTRIC STOVE INSTALLER BID IVF NS @30ML/HR TOPROL XL PO QD TAMBOCOR PO BID NOVOLOG SQ Q6HR FLOMAX PO QD FIORICET Q6/PRN \: 3E MED/SURG PLAN OF CARE: MG INFUSION X4 BAGS CONT NPO CONT TPN
--- NOTE | 2019-06-04 15:41 | NUR ---
*-* INSURANCE ALL AVAILABLE CLINICALS HAVE BEEN FAXED TO: [facility] CERT # [id number] MICHELLE HOFFMANN NO PH#FOR SHUN PLS FAX CLINICALS TO [phone] DON BREANNE REP [phone] Addendum: 06/05/19 at 1459 by JEFF GONZALEZ CM CERT # [id number]
[2019-06-04 16:00] VITALS: BP 140/62
[2019-06-04] MEDS: LORazepam 1mg tab SL PRN (18:30)
--- NOTE | 2019-06-04 18:30 | NUR ---
NURSE NOTES: Verbalized he was experiencing headaches and was curious if the magnesium supplement was the cause. Educated that in some cases of migraine or headache treatment magnesium if given as a supplement. Pt also states he takes Benadryl at night. Encouraged to use lubrication when he goes home due to drying effects of Benadryl . Possibly drying the natural mucous that the stomach produces. Per pt since he has started using Benadryl for sleep he has not had any mucous coming from his pouch, at times causing difficulty to intubate. Educated about the importance of not forcing the catheter in and to use lubrication to facilitate insertion. Informed that Dr Lund will be called for other sleeping medications . " I always take Benadryl to sleep I don not know what else I could take, that is what I am use to. " Provided with Simethicone , Ativan, and Tylenol, for headache Unable to decipher if pain is from gas of muscle cramps. Will reassess effectiveness. No odor from ileotomy output dark brown in color thin gel like consistency true output 330 . Flushed with 40 cc x 2 for slow, return, required to stand to commence flowing of output to ileostomy. , urine dark yellow with no presence of sediment total of 1600 cc
[2019-06-04] MEDS: Simethicone 80mg tab ORAL PRN (18:32)
--- NOTE | 2019-06-04 19:54 | NUR ---
HAND-OFF: Report given to Amber made aware that plan of care continues with q3 flushing, remains NPO status ice chips and meds, Had concerns with pain to scrotum face towel placed under scrotums. would like other options for sleep medication. ambulated .5 x True ileostomy output 330 flushed with 120 cc Urinary output 1600 Educated to leave urinal in bathroom, and allow nurse to empty urinal, to ensure he was not having difficulty, and to monitor output. .
--- NOTE | 2019-06-04 19:55 | NUR ---
NURSE NOTES: Received report & pt from ARTIS Barron. Pt in bed, a&ox4, in room air, family member at bedside. No s/s of acute distress & c/o 2/10 pain at this time. Per pt, headache is gone & is feeling better. Ileo cath intact & draining to gravity. PICC line intact with IVF & TPN running as ordered. Surgical dressing C/D/I. Bed in lowest position, call light within reach. Will continue to monitor.
[2019-06-04 20:00] VITALS: BP 135/73
[2019-06-04] MEDS: FAT EMULSION 20% IV SCH (20:28)
[2019-06-04] MEDS: TPN IV SCH (20:28)
[2019-06-04] MEDS: Dyna-Hex 2% Top Sol 2oz TOPIC SCH (20:30)
[2019-06-05] VITALS: BP 125/73
[2019-06-05] MEDS: NovoLOG Insulin Flexpen SUBQ SCH ×4 (00:08→17:54)
[2019-06-05 03:28] VITALS: BP 133/74
--- NOTE | 2019-06-05 03:29 | NUR ---
NURSE NOTES: Ambulating in hallway; steady gait; no distress noted.
--- NOTE | 2019-06-05 05:47 | NUR ---
NURSE NOTES: Ambulating in hallway, steady gait.
[2019-06-05 06:12] LABS: EOSINOPHILS % (AUTO) 6.7 % (0.0-3.0); HEMATOCRIT 36.1 % (42.0-52.0); HEMOGLOBIN 12.6 G/DL (14.2-18.0); LYMPHOCYTES % (AUTO) 14.8 % (20.0-45.0); MEAN CORPUSCULAR VOLUME 88 FL (80-99); NEUTROPHILS % (AUTO) 66.5 % (45.0-75.0); PLATELET COUNT 225 K/UL (150-450); RED BLOOD COUNT 4.09 M/UL (4.70-6.10); RED CELL DISTRIBUTION WIDTH 11.1 % (11.6-14.8); WHITE BLOOD COUNT 6.7 K/UL (4.8-10.8)
[2019-06-05 06:38] LABS: ALANINE AMINOTRANSFERASE 39 U/L (12-78); ALBUMIN 2.3 G/DL (3.4-5.0); ALBUMIN/GLOBULIN RATIO 0.7 (1.0-2.7); ALKALINE PHOSPHATASE 53 U/L (46-116); ANION GAP 7 mmol/L (5-15); ASPARTATE AMINO TRANSFERASE 21 U/L (15-37); BILIRUBIN,TOTAL 0.3 MG/DL (0.2-1.0); BLOOD UREA NITROGEN 19 mg/dL (7-18); CARBON DIOXIDE 30 MMOL/L (21-32); CHLORIDE 105 MMOL/L (98-107); POTASSIUM 4.2 MMOL/L (3.5-5.1); SODIUM 142 MMOL/L (136-145)
--- NOTE | 2019-06-05 07:16 | NUR ---
HAND-OFF: Report given to ARTIS Barron. Pt in stable condition.
--- NOTE | 2019-06-05 07:43 | NUR ---
NURSE NOTES: Pt awake states he slept well last night , does not feel over sedated . Up and walking . Ileostomy flushed with 30cc at 0730. Urinal emptied 400 cc , no sediment noted , dark yellow in color. Ativan po given last night for abdominal discomfort effective per pt.
[2019-06-05 08:00] VITALS: BP 142/92
[2019-06-05] MEDS: Tamsulosin 0.4mg cap ORAL SCH (09:33)
[2019-06-05] MEDS: Simethicone 80mg tab ORAL PRN ×2 (09:33→17:39)
[2019-06-05] MEDS: LORazepam 1mg tab SL PRN ×2 (09:34→17:39)
[2019-06-05] MEDS: Metoprolol Succinate XL 50mg tab ORAL SCH (09:34)
[2019-06-05] MEDS: D5 1/2NS w/KCl 40meq 1000ml 1,000 ML IV SCH (09:46)
[2019-06-05] MEDS: Magnesium Sulfate 1gm/100ml IVPB SCH ×4 (11:32→16:15)
[2019-06-05 11:47] VITALS: BP 134/71
--- NOTE | 2019-06-05 11:47 | NUR ---
CASE MANAGEMENT: REVIEW 06/05/2019 SI: POD#7 REVISION OF MORA CONTINENT ILEOSTOMY VALVE 98.3 N 89 19 142/92 99% ON RA BG 174 CA 8.0 MG 1.7 H/H 12.6/36.1 IS: IV MG SULFATE X4 BAGS IV TPN Q24HR IV DEXTROSE @30ML/HR TOPROL XL PO QD TAMBOCOR PO BID NOVOLOG SQ Q6HR FLOMAX PO QD FIORICET Q6/PRN \: 3E MED/SURG PLAN OF CARE: VIGOROUS FLUSHING ILEOSTOMY OFTEN POSSIBLE MG INFUSION X4 BAGS CONT NPO CONT TPN
--- NOTE | 2019-06-05 13:52 | General Progress Note ---
Progress Note Progress Note AVSS Had some cramping that resolved yesterday Abdomen still mildly distended and tympanitic, healing well Urine 2600 BCIR ileo 700 labs stable except Mg 1.7 and albumin 2.3 KUB - mildly dilated small bowel loops left abdomen Imp. Ileus vs. mild partial SBO Plan: trial of clear liquid diet - patient advised continue TPN, Mg infusion ,Vargas Campos MD Jun 05, 2019 13:52
[2019-06-05 16:15] VITALS: BP 135/69
[2019-06-05 20:00] VITALS: BP 140/75
--- NOTE | 2019-06-05 20:05 | NUR ---
HAND-OFF: Report given to .Amber made aware that pt has started clear liquid diet. Endorsed to oncoming nurse to notify dietary that pt does not want broth. Ativan po given x 2 Simethicon given x 2 urine output 1950 ileostomy output 600 with 160 flush = 440 ambulated more than 8 x full legth of hallway tolerated clear liquid diet no n/v
--- NOTE | 2019-06-05 20:06 | NUR ---
NURSE NOTES: Received report & pt from ARTIS Barron. Pt in bed, a&ox4, in room air, family member at bedside. No s/s of acute distress & no c/o pain at this time. Ileo cath intact & draining to gravity. Surgical dressing C/D/I. PICC line intact with IVF & TPN running as ordered. Bed in lowest position, call light within reach. Will continue to monitor.
[2019-06-05] MEDS: Dyna-Hex 2% Top Sol 2oz TOPIC SCH (20:35)
[2019-06-05] MEDS: Venofer 100mg in NS 55ml IV SCH (20:41)
[2019-06-05] MEDS: TPN IV SCH (20:42)
[2019-06-05] MEDS: FAT EMULSION 20% IV SCH (20:42)
[2019-06-06] VITALS: BP 105/63
[2019-06-06] MEDS: NovoLOG Insulin Flexpen SUBQ SCH ×5 (00:49→23:58)
[2019-06-06 04:00] VITALS: BP 138/64
--- NOTE | 2019-06-06 04:53 | NUR ---
NURSE NOTES: Pt ambulating in hallway, steady gait & no distress noted
[2019-06-06 05:25] LABS: ALANINE AMINOTRANSFERASE 42 U/L (12-78); ALBUMIN 2.3 G/DL (3.4-5.0); ALBUMIN/GLOBULIN RATIO 0.7 (1.0-2.7); ALKALINE PHOSPHATASE 58 U/L (46-116); ANION GAP 4 mmol/L (5-15); ASPARTATE AMINO TRANSFERASE 23 U/L (15-37); BILIRUBIN,TOTAL 0.3 MG/DL (0.2-1.0); BLOOD UREA NITROGEN 21 mg/dL (7-18); CALCIUM 7.9 MG/DL (8.5-10.1); CARBON DIOXIDE 31 MMOL/L (21-32); CHLORIDE 104 MMOL/L (98-107); CREATININE 1.1 MG/DL (0.55-1.30); POTASSIUM 4.6 MMOL/L (3.5-5.1); SODIUM 139 MMOL/L (136-145)
[2019-06-06] MEDS: D5 1/2NS w/KCl 40meq 1000ml 1,000 ML IV SCH (06:15)
--- NOTE | 2019-06-06 07:30 | NUR ---
HAND-OFF: Report given to ARTIS Berg. Rounds done.
[2019-06-06 08:00] VITALS: BP 133/75
--- NOTE | 2019-06-06 08:00 | NUR ---
NURSE NOTES: Received report from Amber WISDOM. Patient is awake and oriented, no acute distress noted, reporting no pain at this time. TPN running per order from [facility], dressing dry and intact. Ileo to gravity drainage. Needs met at this time, updated on plan of care for the day. Side rails upx2, bed low and locked, call light within reach.
--- NOTE | 2019-06-06 08:04 | General Progress Note ---
Progress Note Progress Note AVSS Tolerated clear liquid diet 1800cc with no cramping or increased bloating. Had stool around indwelling Donaldson pouch catheter x 1. Abdomen soft with mild distention and mildly tympanitic upper abdomen, incision clean Urine 3650 BCIR ileo 860 labs all stable - albumin still 2.3 Imp: improving Plan: full liquid diet continue TPN and indwelling Donaldson pouch catheter to continuous drainage Vargas Lund MD Jun 06, 2019 08:04
[2019-06-06] MEDS: Tamsulosin 0.4mg cap ORAL SCH (09:36)
[2019-06-06] MEDS: Metoprolol Succinate XL 50mg tab ORAL SCH (09:37)
--- NOTE | 2019-06-06 11:59 | NUR ---
CASE MANAGEMENT: REVIEW 06/06/2019 SI: POD#8 REVISION OF MORA CONTINENT ILEOSTOMY VALVE 97.8 64 16 133/75 98% ON RA BG 164 CA 7.9 IS: IV FE SUCROSE X5 BAGS IV TPN Q24HR TOPROL XL PO QD TAMBOCOR PO BID NOVOLOG SQ Q6HR FLOMAX PO QD FIORICET Q6/PRN \: 3E MED/SURG PLAN OF CARE: FULL LIQ DIET CONT TPN CONT MORA POUCH DRAINAGE
[2019-06-06 12:00] VITALS: BP 138/79
--- NOTE | 2019-06-06 15:24 | NUR ---
*-* INSURANCE ALL AVAILABLE CLINICALS HAVE BEEN FAXED TO: [facility] # [id number] MICHELLE HOFFMANN NO PH#FOR SHUN PLS FAX CLINICALS TO [phone] PER BREANNE REP [phone]
[2019-06-06 16:00] VITALS: BP 139/72
--- NOTE | 2019-06-06 16:34 | Cardiology Report ---
APPROVED REPORT EKG Measurement Heart [id number] NV [id number] Normal sinus rhythm Early repolarization Normal ECG
--- NOTE | 2019-06-06 18:30 | NUR ---
NURSE NOTES: Total ileo output for shift: +1520mL Total urine output: 2150mL Patient tolerating diet well, ambulated in hallway several times.
--- NOTE | 2019-06-06 19:40 | NUR ---
NURSE NOTES: Receive a report from ARTIS Berg. Roud is done. Pt is awake and alert. No acute distress noted. Breathing is even and non labored. Denies pain. Ileostomy is drained with natural gravity and flushing q3hrs. No camping noted. TPN is running via PICC on STEVEN. Explain about care of plans. Call light within reach. Will continue to monitor.
--- NOTE | 2019-06-06 19:45 | NUR ---
HAND-OFF: Report given to Papa WISDOM.
[2019-06-06 20:00] VITALS: BP 145/79
[2019-06-06] MEDS: Dyna-Hex 2% Top Sol 2oz TOPIC SCH (20:25)
[2019-06-06] MEDS: FAT EMULSION 20% IV SCH (20:26)
[2019-06-06] MEDS: TPN IV SCH (20:26)
[2019-06-06] MEDS: Venofer 100mg in NS 55ml IV SCH (20:27)
--- NOTE | 2019-06-06 21:00 | NUR ---
NURSE NOTES: After unit ambulation, pt felt gauze getting wet. Inner gauze has been wet with drainage. Done dressing change. No noted cramping or bloating sensation at this time. Will continue to monitor.
[2019-06-07] VITALS: BP 104/60
--- NOTE | 2019-06-07 03:30 | NUR ---
NURSE NOTES: After using bathroom, pt states that he feels leaking on ileostomy site. Noted inner gauze got wet. But no noted leaking during flushing. Done dressing changed. Will continue to monitor.
[2019-06-07 04:00] VITALS: BP 110/60
--- NOTE | 2019-06-07 05:00 | NUR ---
NURSE NOTES: Came back from ambulation in the hallway. Kept dressing dry and clean. Drained with drainage and gas passing via ileostomy during ambulation. No noted bloating or cramping. Will continue to monitor.
--- NOTE | 2019-06-07 06:00 | NUR ---
NURSE NOTES: Denies pain. No acute distress noted. Kept dressing dry and clean. Will continue to monitor. 12hrs Output Urine: 1930ml Ileostomy: 420ml
[2019-06-07] MEDS: NovoLOG Insulin Flexpen SUBQ SCH ×3 (06:09→17:13)
[2019-06-07 06:31] LABS: BASOPHILS % (AUTO) 1.3 % (0.0-2.0); EOSINOPHILS % (AUTO) 7.4 % (0.0-3.0); HEMATOCRIT 36.3 % (42.0-52.0); HEMOGLOBIN 12.4 G/DL (14.2-18.0); LYMPHOCYTES % (AUTO) 14.1 % (20.0-45.0); MEAN CORPUSCULAR VOLUME 90 FL (80-99); MONOCYTES % (AUTO) 12.2 % (1.0-10.0); NEUTROPHILS % (AUTO) 64.9 % (45.0-75.0); PLATELET COUNT 212 K/UL (150-450); RED BLOOD COUNT 4.04 M/UL (4.70-6.10); RED CELL DISTRIBUTION WIDTH 11.2 % (11.6-14.8); WHITE BLOOD COUNT 6.4 K/UL (4.8-10.8)
[2019-06-07 06:47] LABS: ALANINE AMINOTRANSFERASE 100 U/L (12-78); ALBUMIN 2.4 G/DL (3.4-5.0); ALBUMIN/GLOBULIN RATIO 0.7 (1.0-2.7); ALKALINE PHOSPHATASE 74 U/L (46-116); ANION GAP 6 mmol/L (5-15); ASPARTATE AMINO TRANSFERASE 49 U/L (15-37); BILIRUBIN,TOTAL 0.3 MG/DL (0.2-1.0); BLOOD UREA NITROGEN 22 mg/dL (7-18); CALCIUM 8.3 MG/DL (8.5-10.1); CARBON DIOXIDE 30 MMOL/L (21-32); CHLORIDE 104 MMOL/L (98-107); CREATININE 1.2 MG/DL (0.55-1.30); POTASSIUM 4.7 MMOL/L (3.5-5.1); SODIUM 140 MMOL/L (136-145)
--- NOTE | 2019-06-07 07:15 | NUR ---
NURSE NOTES: Report received from o RN, rounds made. Patient sitting upright in bed, alert oriented x4 calm, no distress on RA. TPN infusing at 97 ml/hr, via YASMIN, dressing CDI, no redness or swelling. Abdominal dressing (ABD with paper tape) CDI, ileostomy draining green/brown output to drainage bag. Appetite good on full liquids, patient notified diet has been advanced to BCIR low residue diet. No nausea/pain/SOB. Instructed patient on IS, verbalized understanding. Spouse at bedside. Call light in reach, bed in lowest position, will continue to monitor.
--- NOTE | 2019-06-07 07:30 | NUR ---
HAND-OFF: Report given to ARTIS Dimas. Round is done.
[2019-06-07 08:00] VITALS: BP 127/65
[2019-06-07] MEDS: Metoprolol Succinate XL 50mg tab ORAL SCH (08:40)
[2019-06-07] MEDS: Tamsulosin 0.4mg cap ORAL SCH (08:40)
--- NOTE | 2019-06-07 08:59 | NUR ---
RD ASSESSMENT & RECOMMENDATIONS SEE CARE ACTIVITY FOR COMPLETE ASSESSMENT DAILY ESTIMATED NEEDS: Needs based on Surgery 84.5kg 25-30 kcals/kg 6469-2604 total kcals 1-2 g protein/kg 85-169 g total protein 25-30 mL/kg 8249-3662 total fluid mLs NUTRITION DIAGNOSIS: Altered GI fxn r/t malfunctioning ileo as evidenced by pt w/ h/o UC, s/p BCIR revision, on TPN, diet now advanced to BCIR low residue/ low fiber diet. CURRENT DIET: Full-> now BCIR PO DIET RECOMMENDATIONS: DIET PER MD PARENTERAL NUTRITION RECOMMENDATIONS: D/AA Rate: 85 IL Rate: 12 Total Rate: 97 Volume: 2328 % Dextrose: 17 % AA: 5.4 Energy (kcals/kg): 2196 Protein (g/kg protein): 110 Nonprotein KCALS: 1755 GIR (mg CHO/kg/min): 2.9 % Fat KCALS: 26 NCP: N Ratio: 100:1 TPN Comment: - Maintain D17% + AA 5.4% @85ml/hr w/ IL 20% @12ml/hr- all 3:1. - At goal TPN meets 100% est needs, 26 kcal/kg, 1.3g pro/kg - IL <30% - GIR<5 - NPC 100:1 LFT's now trending up-> rec to begin to taper TPN w/ current oral diet and good tolerance of diet. ADDITIONAL RECOMMENDATIONS: * Obtain a standing weight as medically able * W/ TPN, monitor LYTES, BG, LFT's -> LFT's now elev (06/07)-> REC TO TAPER TPN DOWN * Monitor BG and need for formulary change -> LFT's now trending up, should pt remain on TPN, rec to lower dextrose content of formulary w/ oral diet
[2019-06-07 12:00] VITALS: BP 108/61
--- NOTE | 2019-06-07 14:18 | NUR ---
CASE MANAGEMENT: REVIEW 06/06/2019 SI: POD#9 REVISION OF MORA CONTINENT ILEOSTOMY VALVE 97.7 74 16 127/65 97% ON RA BG 161 CA 8.3 BUN 22 H/H 12.4/36.3 IS: IV FE SUCROSE X5 BAGS IV TPN Q24HR TOPROL XL PO QD TAMBOCOR PO BID NOVOLOG SQ Q6HR FLOMAX PO QD FIORICET Q6/PRN \: 3E MED/SURG PLAN OF CARE: FULL LIQ DIET AMBULATING WELL CONT TPN CONT MORA POUCH DRAINAGE Addendum: 06/08/19 at 1410 by EKTA MONDRAGON LVN 06/07/19
--- NOTE | 2019-06-07 14:36 | General Progress Note ---
Progress Note Progress Note AVSS Tolerated full liquid diet with some gas cramping and large volume effluent (1500cc day shift+420 overnight) and small amount of effluent around the indwelling pouch catheter Abdomen soft, mild upper abd distention and tympany, healing nicely Urine 4080 BCIR ileo 1940 BUN up 22 Cr up 1.2 albumin 2.4 ALT/AST up Imp. High volume ileostomy output Plan: stool for c. diff toxin BCIR low residue diet continue TPN until tolerating BCIR diet f/u labs maintain continuous drainage of BCIR Vargas Lund MD Jun 07, 2019 14:36
[2019-06-07] MEDS ORDERED: Heplock Flush 100 units/ml 3 ml syr INJ SCH (14:45)
--- NOTE | 2019-06-07 15:00 | NUR ---
NURSE NOTES: Abdominal dressing changed with gifty Mosre to mid abdomen, CDI, no redness/swelling/drainage. Ileostomy stoma, normal pink color. Will continue to monitor.
--- NOTE | 2019-06-07 15:50 | NUR ---
NURSE NOTES: Administered Heparin Flush 2 ml IVP to Left PICC, using SASH method per Dr. Lund Addendum: 06/07/19 at 1630 by Judie Rangel RN Resistance noted. Dr. Lund aware. Will continue to monitor
[2019-06-07 16:00] VITALS: BP 142/72
--- NOTE | 2019-06-07 16:00 | NUR ---
NURSE NOTES: Stool for C-diff obtained from ileostomy drainage bag as ordered by Dr. Lund. Sent down to lab. Will continue to monitor.
--- NOTE | 2019-06-07 16:20 | NUR ---
NURSE NOTES: Notified Dr. Lund regarding patient's spouse questioning when the patient will receive his Diflucan medication. Orders received for Diflucan PO x1 STAT and Nystatin oral suspension, see orders. Spoke to Laci in Pharmacy regarding interaction between Diflucan and Zofran/Tambocor, instructed to override and okay to give. Patient updated on new orders, verbalized understanding. Administered Diflucan PO as ordered at this time, patient tolerated well. Will continue to monitor.
--- NOTE | 2019-06-07 16:33 | NUR ---
NURSE NOTES: Patient up ambulating in halls and to bathroom, as tolerated, multiple times this shift. Gait steady. Instructed patient to perform IS every hour, verbalized understanding. Will continue to monitor.
[2019-06-07] MEDS ORDERED: Fluconazole 150mg tab ORAL SCH (17:00)
[2019-06-07] MEDS ORDERED: NS Irrig 1000ml ONE (18:16)
[2019-06-07] MEDS ORDERED: Tubing IV Secondary IV ONE (18:16)
[2019-06-07] MEDS: Nystatin Susp 500,000 units/5ml ORAL SCH ×2 (18:33→20:36)
--- NOTE | 2019-06-07 19:25 | NUR ---
HAND-OFF: Report given to Jancie WISDOM, rounds made. Output: Urine: 1560 ml Ileostomy: 1450 ml
--- NOTE | 2019-06-07 19:56 | NUR ---
NURSES NOTE: Met patient laying in bed, A/OX4, communicative, able to express needs. Denies pain currently. No outward s/s of distress noted. Breathing pattern is even and unlabored on RA. Dressing to abdomen is clean, dry, intact. YASMIN picc line running TPN at 97ml/hr is constantly beeping. Pt agrees to run 2000 TPN bag. RN will try to manipulate line. Ileo is patent, draining according to gravity. Will flush q3h. Pt states handling low residue BCIR diet well with no extra bloating or gas. Bed at lowest level, call light within reach. Pt will continue to be monitored.
[2019-06-07 20:00] VITALS: BP 129/67
[2019-06-07] MEDS: Ascorbic Acid 500mg tab ORAL PRN (20:35)
[2019-06-07] MEDS: Venofer 100mg in NS 55ml IV SCH (20:36)
[2019-06-07] MEDS: Dyna-Hex 2% Top Sol 2oz TOPIC SCH (20:36)
[2019-06-07] MEDS: TPN IV SCH (20:38)
[2019-06-07] MEDS: FAT EMULSION 20% IV SCH (20:38)
[2019-06-08] VITALS: BP 134/63
[2019-06-08] MEDS: NovoLOG Insulin Flexpen SUBQ SCH ×2 (00:40→05:43)
[2019-06-08 04:00] VITALS: BP 132/69
[2019-06-08] MEDS: Ascorbic Acid 500mg tab ORAL PRN ×5 (05:53→20:17)
[2019-06-08 06:32] LABS: BASOPHILS % (AUTO) 1.2 % (0.0-2.0); EOSINOPHILS % (AUTO) 6.6 % (0.0-3.0); HEMATOCRIT 34.9 % (42.0-52.0); HEMOGLOBIN 11.9 G/DL (14.2-18.0); LYMPHOCYTES % (AUTO) 18.2 % (20.0-45.0); MEAN CORPUSCULAR VOLUME 90 FL (80-99); MONOCYTES % (AUTO) 14.2 % (1.0-10.0); NEUTROPHILS % (AUTO) 59.7 % (45.0-75.0); PLATELET COUNT 206 K/UL (150-450); RED BLOOD COUNT 3.86 M/UL (4.70-6.10); RED CELL DISTRIBUTION WIDTH 11.5 % (11.6-14.8); WHITE BLOOD COUNT 6.6 K/UL (4.8-10.8)
[2019-06-08 06:55] LABS: ALANINE AMINOTRANSFERASE 87 U/L (12-78); ALBUMIN 2.4 G/DL (3.4-5.0); ALBUMIN/GLOBULIN RATIO 0.7 (1.0-2.7); ALKALINE PHOSPHATASE 73 U/L (46-116); ANION GAP 7 mmol/L (5-15); ASPARTATE AMINO TRANSFERASE 29 U/L (15-37); BILIRUBIN,TOTAL 0.3 MG/DL (0.2-1.0); BLOOD UREA NITROGEN 30 mg/dL (7-18); CALCIUM 8.4 MG/DL (8.5-10.1); CARBON DIOXIDE 27 MMOL/L (21-32); CHLORIDE 105 MMOL/L (98-107); CREATININE 1.1 MG/DL (0.55-1.30); POTASSIUM 4.4 MMOL/L (3.5-5.1); SODIUM 139 MMOL/L (136-145)
[2019-06-08 08:00] VITALS: BP 119/71
--- NOTE | 2019-06-08 08:04 | NUR ---
HAND OFF: Report given to ARTIS Barron. Pt stable.
--- NOTE | 2019-06-08 08:07 | NUR ---
NURSE NOTES: Pt received eating breakfast, ate 100 % of double portion breakfast, 596 cc of fluids. Denies n/v abdominal discomfort 2 to large meal intake. Per outgoing nurse PICC line was flushed repeatedly, due to constant beeping to iv pump. Per report of pt arm needed to be kept in a bent position. Will flush frequently
[2019-06-08] MEDS: Tamsulosin 0.4mg cap ORAL SCH (09:26)
[2019-06-08] MEDS: Nystatin Susp 500,000 units/5ml ORAL SCH ×4 (09:27→20:17)
[2019-06-08] MEDS: Metoprolol Succinate XL 50mg tab ORAL SCH (09:27)
--- NOTE | 2019-06-08 09:56 | NUR ---
NURSE NOTES: Dr Lund phoned gave orders to discontinue all fluids. Pt aware Drainage bag changed due to thick pasty output light brown in color no odor, 450 cc . Flushed with an additional 20 cc to equal 40cc. Continues to deny discomfort after large meal, did verbalize that is stomach began to rumble resolved with walking. Tongue has minimal white film on it inner buccal cavity has no noted white patches, nor has signs of irritation. Understood the importance of swish and swallow, for use of Nystatin
--- NOTE | 2019-06-08 10:43 | General Progress Note ---
Progress Note Progress Note AVSS Eating all meals and extra food. Denies cramping or abd pain Abdomen soft, non-distended. Rakesh removed and steristrips applies Urine 2860 BCIR ileo 1970 - thicker now - high volume related to high volume po intake c. diff pending BUn up 30 but Cr down 1.1 ALT/AST down Imp. Improved Plan: d/C TPN now Start BCIR self-intubations in Vargas Lund MD Jun 08, 2019 10:43
--- NOTE | 2019-06-08 11:30 | NUR ---
NURSE NOTES: Vitamin C given po due to thick output. Drainage bag opened output unable to flow out, bag squeezed, output still did flow out. Large amount of loud gas in tubing , gas in bag
--- NOTE | 2019-06-08 11:43 | NUR ---
NURSE NOTES: Dr called to inform him to let him know that per outgoing nurse pt had a reaction. Order is still active Dr Pozo phoned earlier in shift, to inquire if he wanted the pt to be given Benadryl before cefepime , was given Addendum: 06/08/19 at 1148 by Beatrice Lopez RN error in entry wrong pt
[2019-06-08 12:00] VITALS: BP 123/64
[2019-06-08] MEDS ORDERED: LORazepam 1mg tab SL PRN (14:00)
--- NOTE | 2019-06-08 14:10 | NUR ---
CASE MANAGEMENT: REVIEW 06/08/2019 SI: POD#10 REVISION OF MORA CONTINENT ILEOSTOMY VALVE 98.0 80 20 119/71 98% ON RA BG 159 CA 8.4 BUN 30 H/H 11.9/34.9 IS: IV FE SUCROSE X5 BAGS TOPROL XL PO QD TAMBOCOR PO BID NOVOLOG SQ Q6HR FLOMAX PO QD FIORICET Q6/PRN \: 3E MED/SURG PLAN OF CARE: BCIR DIET SELF INTUBATION IN AM
--- NOTE | 2019-06-08 15:11 | NUR ---
*-* INSURANCE ALL AVAILABLE CLINICALS HAVE BEEN FAXED TO: [facility] # [id number] MICHELLE HOFFMANN NO PH#FOR SHUN PLS FAX CLINICALS TO [phone] PER BREANNE REP [phone]
[2019-06-08 16:00] VITALS: BP 118/62
--- NOTE | 2019-06-08 16:27 | NUR ---
NURSE NOTES: Dr Lund phoned in regards to pt inquiring if Glucophage 850 mg po TID was going to be restarted since accucheck were d/c. Awaiting for Dr Lund return call
[2019-06-08] MEDS: Simethicone 80mg tab ORAL PRN (18:07)
--- NOTE | 2019-06-08 19:15 | NUR ---
NURSE NOTES: Pt received in bed awake, alert with at bedside, able to make needs known, call light within reach, ileostomy draining, dressing changed, no c/o pain or signs of distress, head of bed elevated, will continue to monitor.
--- NOTE | 2019-06-08 19:32 | NUR ---
HAND-OFF: Report given to Report given to Cydney WISDOM made awre that pt output has been thick required to be flushed with a total of 360 cc; vitamin C given x 3 . Ativan po given , as well as Simethicone for comfort and preventive measures due to large meal intake. Total ileostomy output 1600, True ileostomy 1240. Ambulated , > 8 times ate double portion each meal 100% total oral intake 2270 total urine output 2200 Intubation to begin tomorrow
[2019-06-08 20:00] VITALS: BP 118/70
[2019-06-08] MEDS: Dyna-Hex 2% Top Sol 2oz TOPIC SCH (20:18)
[2019-06-08] MEDS: Venofer 100mg in NS 55ml IV SCH (20:19)
[2019-06-09] VITALS (7 sets, daily range): BP systolic 114–140; BP diastolic 65–77
--- NOTE | 2019-06-09 06:00 | NUR ---
NURSE NOTES: Pt urine output is 975ml, ileostomy is 725ml and true ileostomy is 605ml.
--- NOTE | 2019-06-09 07:30 | NUR ---
NURSE NOTES: Received report from ARTIS Lamas. Patient A&Ox4. at the bedside. On room air, no signs of distress or labored breathing. PICC line dry intact, patent, and saline locked. Ileostomy draining well into drainage bag. Bed in lowest position with call light in reach. Patient encouraged to ambulate. Will continue with plan of care.
--- NOTE | 2019-06-09 07:43 | NUR ---
HAND-OFF: Report given to ARTIS Shook.
[2019-06-09] MEDS: Tamsulosin 0.4mg cap ORAL SCH (09:20)
[2019-06-09] MEDS: Metoprolol Succinate XL 50mg tab ORAL SCH (09:20)
[2019-06-09] MEDS: Nystatin Susp 500,000 units/5ml ORAL SCH ×4 (09:21→20:46)
--- NOTE | 2019-06-09 09:56 | General Progress Note ---
Progress Note Progress Note AVSS Doing well eating 100% and double portions Abdomen soft, mild upper abd. tympanitic Urine 3175 BCIR ileo 1845 (C.diff negative) Donaldson pouch catheter removed - reinserts readily Imp: doing well Plan: RN supervised BCIR self-intubations q3h and prn am to hs; prn overnight If does well will discharge early AM Instructions/limitations/supplies provided/discussed Rx Flomax 0.4mg #30 QD F/U office 06/14 and prn Vargas Lund MD Jun 09, 2019 09:56
[2019-06-09] MEDS: Ascorbic Acid 500mg tab ORAL PRN ×3 (10:25→18:23)
[2019-06-09] MEDS: Simethicone 80mg tab ORAL PRN ×2 (14:12→21:43)
--- NOTE | 2019-06-09 17:04 | NUR ---
CASE MANAGEMENT: REVIEW SI: MALFUNCTIONING MORA CONTINENT ILEOSTOMY w/INCONTINENCE REVISION OF MORA CONTINENT ILEOSTOMY VALVE 05/29 T 97.9 HR 69 RR 21 BP 140/68 SAT 96% ROOM AIR IS: VENOFER IV QHS METFORMIN PO TID SIMETHICONE PO Q6HR PRN ZOFRAN IV Q4HR PRN VIT C PO PRN BCIR PO DIET MED/SURG STATUS DCP: PATIENT IS FROM HOME
--- NOTE | 2019-06-09 19:17 | NUR ---
HAND-OFF: Report given to ARTIS Hdz.
--- NOTE | 2019-06-09 19:20 | NUR ---
NURSE NOTES: Received patient on bed, awake and verbally responsive. respirations even and unlabored. NO SOB. denies any pain or discomfort. bed locked and in lowest position. c
[2019-06-09] MEDS: Dyna-Hex 2% Top Sol 2oz TOPIC SCH (20:45)
[2019-06-09] MEDS: Venofer 100mg in NS 55ml IV SCH (20:46)
[2019-06-09] MEDS ORDERED: FLOMAX0.4 MG ORAL (21:18)
--- NOTE | 2019-06-09 22:00 | NUR ---
NURSE NOTES: infused venofer and D/c Picc line on the left arm as ordered. catheter is intact. no bleeding. denies any pain or discomfort on the site.
[2019-06-10 04:00] VITALS: BP 140/74
--- NOTE | 2019-06-10 04:33 | NUR ---
NURSE NOTES: patient is discharge today as ordered with chandu lockhart via private vehicle. discharge instructions, medications and follow up consults imparted to patient and family and verbalized understanding. discharge papers signed by the . all belongings was released upon discharge.
--- NOTE | 2019-06-12 10:42 | Discharge Summary ---
Discharge Summary Hospital Course Date of Admission May 28, 2019 at 08:08 Date of Discharge Jun 10, 2019 at 05:00 Admitting Diagnosis Malfunctioning Donaldson Continent Ileostomy Reason for Hospitalization: elective surgery HPI Nakul Quinones is a 58 year old male who was admitted on May 28, 2019 at 08:08 for Malfunctioning Donaldson Continent Ileostomy 58-year-old male, in overall good health with a malfunctioning Donaldson continent ileostomy with incontinence. The patient has a past history of ulcerative colitis and underwent proctocolectomy with Iesha ileostomy in 1987 followed by conversion to a Donaldson continent ileostomy in 1992 in [place]. He required revision and relocation of the stoma in 1993. In January 2018, the patient underwent surgery because of recurring episodes of gross incontinence through the stoma and difficulty inserting his intubation catheter. He underwent laparotomy with revision of a slipped valve with revision of the stoma as well. The patient did well following surgery. He had some difficulties with pouchitis, which resolved with cefdinir 300 mg every 12 hours oral therapy. C. difficile toxin was negative. The patient reported occasional small amount of stool in January 2019 and underwent pouch endoscopy. He was not having any difficulty intubating using a 34-Vietnamese Rowena catheter. Endoscopy at that time revealed a healthy pouch, but a fish-mouth deformity of the valve orifice. The patient's problem has progressed. He limits his eating to one meal a day because of the fear of incontinence of stool and gas. He intubates approximately 6 times a day to minimize the risk of incontinence. He was s scheduled to undergo revision of his Donaldson continent ileostomy. Procedures s/p 05/29/[address] Lund Laparotomy with revision of Donaldson continent ileostomy nipple valve. Hospital Course patient admitted for elective surgery full discussion with the patient regarding the nature of his problem, surgery options and risks involved, all questions answered ; patient consented to surgery PICC line was inserted patient started on bowel preparation continuous drainage of Donaldson continent ileostomy was maintained chest x-ray revealed no acute cardiopulmonary pathology patient started on preoperative antibiotic and subcutaneous heparin labs were monitored, patient started on Venofer infusion patient subsequently undergone on 05/29 laparotomy with revision of Donaldson continent ileostomy nipple valve patient tolerated procedure well ileostomy pouch catheter was flushed and connected to gravity drainage bag postoperatively patient was kept NPO, started on TPN Venofer was continued Killian catheter was continued pain management was addressed with MS [employer] patient was able to ambulate without difficulties intake and output and labs were closely monitored subsequently basal infusion of [employer]NAL [employer] was discontinued , demand dose remained patient continued to be n.p.o. ; on TPN. laboratory work-up revealed low magnesium , and magnesium infusions provided patient was continued on IV antibiotics subsequently Killian catheter was discontinued patient started on Flomax based on preadmission urinary symptoms empiric antibiotic discontinued patient still had some abdominal distention n.p.o. status and TPN continued incision was healing nicely ileus was slowly resolving but abdomen remained mildly distended and tympanic abdominal x-ray demonstrated dilated small bowel postoperatively; bowel obstruction was not excluded. patient started on trial of clear liquid diet , TPN was continued Venofer continued patient was able to tolerate trial of clear liquid diet patient subsequently was started on full liquid diet Donaldson pouch catheter was maintained to continuous drainage patient was able to tolerate full liquid diet , but had some gas cramping and large volume effluent stool for C. difficile was negative patient was advanced to BCIR low residue diet TPN continued until fully tolerated BCIR diet labs were followed up. continuous drainage of BCIR catheter was maintained patient was able to tolerate BCIR low residue diet without difficulties TPN was discontinued patient started on RN supervised self intubation a.m. to hs and as needed patient was able to do self intubation without difficulties PICC line was discontinued patient was stable for discharge instructions/limitations/supplies provided and discussed prescription for Flomax provided patient to follow-up in the office on 06/14 and as needed FINAL DIAGNOSES 1. Malfunctioning Donaldson continent ileostomy. 2. History of ulcerative colitis. 3. Status post multiple abdominal operations. 3.1. Proctocolectomy and Iesha ileostomy in 1987. 3.2. Donaldson continent ileostomy in 1992. 3.3. Revision and relocation of Donaldson continent ileostomy stoma in 1993. 3.4. Laparotomy with revision of Donaldson pouch slipped valve with takedown and re-maturation of stoma and temporary catheter gastrostomy in January of 2018. 4. s/p Laparotomy with revision of Donaldson continent ileostomy nipple valve 5. Postoperative ileus -resolved 6. Hypomagnesemia -corrected Discharge Medications Continued Medications: Ascorbic Acid* (Vitamin C*) 500 Mg Tablet 500 MG ORAL TID, #30 TAB 0 Refills (This prescription has been renewed) Cyanocobalamin (Vitamin B-12) (Vitamin B12) 2,500 Mcg Tablet 1000 MCG PO, TAB (This prescription has been renewed) Diphenhydramine Hcl* (Benadryl*) 25 Mg Capsule 25 MG ORAL BEDTIME, CAP (This prescription has been renewed) Fish Oil (Fish Oil 1,000 mg Capsule) 1 Each Capsule 1000 MG ORAL DAILY, CAP (This prescription has been renewed) Flecainide Acetate* (Tambocor*) 50 Mg Tablet 100 MG ORAL TWICE A DAY, TAB (This prescription has been renewed) Metoprolol Succinate* (Metoprolol Succinate*) 50 Mg Tab.er.24h 50 MG ORAL DAILY, TAB (This prescription has been renewed) Multivitamin (Multi-Vitamin Daily) 1 Each Tablet 1 EACH PO DAILY, TAB (This prescription has been renewed) Rivaroxaban (Xarelto*) 10 Mg Tablet 20 MG ORAL DAILY, #30 TAB 0 Refills (This prescription has been renewed) Tamsulosin HCl (Flomax) 0.4 Mg Cap.er.24h 0.4 MG ORAL DAILY, CAP (This prescription has been renewed) [Vitamin D3] () 50 MCG PO DAILY (This prescription has been renewed) Discharge Condition Upon Discharge: stable Discharge Disposition Patient was discharged home Discharge Instructions Discharge Instructions Special Instructions I have been assigned to complete a D/C Summary on this account. I was not involved in the patient management Magalis Kim NP Jun 12, 2019 10:42
--- NOTE | 2019-06-12 13:28 | NUR ---
*-* INSURANCE DISCHARGE SUMMARY HAS BEEN FAXED: [facility] # [id number] MICHELLE HOFFMANN NO PH#FOR SHUN PLS FAX CLINICALS TO [phone] PER BREANNE REP [phone]
== END 2019-06-10 05:00 | disposition home or self-care (01) | DRG 330 ==
LOC: 3E 08:08
DX: K94.13 Enterostomy malfunction (principal); K56.7 Ileus, unspecified; E11.9 Type 2 diabetes mellitus without complications; I48.0 Paroxysmal atrial fibrillation; E83.42 Hypomagnesemia
CPT/HCPCS: 36415; 36569; 71045; 74018; 76937; 80053; 81003; 82607; 82728; 82746; 82962; 83540; 83550; 83735; 84100; 85007; 85025; 85610; 85730; 86850; 86900; 86901; 87324; 93005; 94003; 94150; J1815; J2405; J2710